=== PATIENT | male | born 1965 | race Caucasian/White ===

== ENCOUNTER 2020-05-28 18:54 | Emergency (ER) | payer OTHER, SELFPAY ==
--- NOTE | 2020-05-28 19:33 | PC.NURSE ---
pt's sps dropped pt off for detox , pt never offered any complaints, sps left immediately, pt then was ambulating in waiting room w/ even steady gait on cellphone, then not present when called for triage.
== END 2020-05-28 19:35 | disposition left against medical advice (07) ==
PROVIDERS: Emergency Provider Emergency Medicine
DX: F10.920 Alcohol use, unspecified with intoxication, uncomplicated (principal)
CPT/HCPCS: 99281

== ENCOUNTER 2020-06-01 20:15 | Emergency (ER) | payer OTHER, SELFPAY ==
[2020-06-01 20:41] VITALS: BP 145/93; PULSE 103; RESP 17; TEMP 36.9; O2SAT 94; BMI 20.7
--- NOTE | 2020-06-01 21:38 | ED.ALCOHOL ---
HPI - Alcohol General Chief Complaint: ETOH/Substance Use Stated Complaint: ETOH Time Seen by Provider: 06/01/20 21:38 Source: EMS Mode of arrival: EMS Limitations: altered mental status History of Present Illness HPI narrative: 55-year-old male presents as a [place] via EMS. He was found outside of a liquor store sleeping on the ground, EMS was unable to obtain any information from him because of acute alcohol intoxication. Review of systems and history limited because of acute alcohol intoxication. MD complaint: alcohol intoxication and alcohol dependence Last drink: Just prior to admission Amount of alcohol consumed: Large Chronic alcohol use: Yes Previous visits for alcohol intoxication: Yes Related Data Allergies Allergy/AdvReac Type Severity Reaction Status Date / Time No Known Allergies Allergy Unverified 04/28/20 19:36 [No Known Allergies*] Review of Systems Review of Systems: Yes Unobtainable due to mental status PMFSH Social History Social History Alcohol intake: current Smoking Status: Current every day smoker Use of substances other than those prescribed or required for medical reasons: No Advance Directives: No Advance Directives Information Provided: No Physical Exam Vital Signs: Vital Signs: Vital Signs Temp Pulse Resp BP Pulse Ox 06/01/20 23:25 98 F 100 19 142/93 H 95 06/01/20 20:41 98.4 F 103 H 17 145/93 H 94 Body Mass Index 20.7 Appearance: Alert. acute alcohol intoxication Eyes: Pupils equal, round and reactive to light. ENT: Pharynx normal. Neck: Normal inspection. Neck supple. CVS: tachycardic Pulses normal. Respiratory: No respiratory distress. Breath sounds normal. Abdomen: Soft and nontender. Skin: Skin warm and dry. Normal skin color. Normal skin turgor. Extremities: No lower extremity edema. Neuro: No motor deficit. No sensory deficit. Course Course Course Narrative: plan is to rule out intracranial hemorrhage, will order CBC, Chem 7 and ETOH. CBC Chem 7 within normal limits, ETOH 361, CT scan of the head is negative for acute findings. Patient's family requesting to pick him up. Patient is not interested in detox and does not think he has an alcohol problem at this time. MDM - Alcohol Differential Diagnosis Differential diagnosis: Likely alcohol dependence, alcohol withdrawal delirium, alcohol intoxication, alcohol withdrawal syndrome and alcohol withdrawal seizure Medical Records Attestation: I reviewed the patient's medical records. Lab Data Attestation: I reviewed the patient's lab results. Result diagrams: 06/01/20 23:25 06/01/20 23:25 Labs: Lab Results 06/01/20 06/01/20 06/01/20 Range/Units 23:25 23:25 23:25 WBC 8.8 (4.8-10.8) X10*3/uL RBC 4.87 (4.60-5.80) X10*6/uL Hgb 15.1 (14.0-18.0) g/dl Hct 44.9 (42-52) % MCV 92.2 (80-98) fL MCH 31.0 (27.0-33.0) pg MCHC 33.6 (31.0-36.0) g/dl RDW 13.9 (11.0-16.0) % Plt Count 277 (160-400) X10*3/uL MPV 9.0 L (9.4-12.4) fL Immature Gran % (Auto) 0.2 (0.0-0.4) % Neut % (Auto) 51.0 (45-73) % Lymph % (Auto) 42.9 H (20-40) % [place] % (Auto) 4.8 (2-11) % Eos % (Auto) 0.3 (0-4) % Baso % (Auto) 0.8 (0-2) % Lymph # (Auto) 3.8 (1.2-4.9) X10*3/uL [place] # (Auto) 0.4 (0.1-1.2) X10*3/uL Eos # (Auto) 0.0 (0.0-0.4) X10*3/uL Baso # (Auto) 0.1 (0.0-0.2) X10*3/uL Abs Immat Gran (auto) 0.02 (0.00-0.03) X10*3/uL Absolute Neuts (auto) 4.5 (2.0-8.3) X10*3/uL Absolute Nucleated RBC 0.000 (0.0-0.012) X10*3/uL Nucleated RBC % (auto) 0.0 (0.0-0.2) /100WBC Sodium 145 (135-145) mmol/L Potassium 4.0 (3.3-5.1) mmol/l Chloride 108 (96-108) mmol/L Carbon Dioxide 23 (22-29) mmol/L Anion Gap 18 (12-20) BUN 19 H (9-16) mg/dL Creatinine 0.81 (0.5-1.4) mg/dL Estim Creat Clear Calc 90.3 Estimated GFR > 60 Random Glucose 97 (60-115) mg/dL Calcium 8.3 L (8.4-10.2) mg/dL Total Bilirubin 0.4 (0.0-1.0) mg/dL AST 45 H (5-37) U/L ALT 41 H (0-40) U/L Alkaline Phosphatase 114 (39-117) U/L Total Protein 7.0 (6.5-8.0) g/dL Albumin 4.1 (3.5-5.0) g/dL Ethyl Alcohol 361 H* mg/dL Imaging Data CT scan - head: Attestation: I personally reviewed and interpreted this imaging study as follows: Radiologist's impression: FINDINGS: There is no evidence of acute intracranial hemorrhage or territorial infarction. No abnormal mass effect or midline shift is seen. [place] to white matter differentiation is well preserved. No extra-axial fluid collections are identified. The ventricles are normal in size. There is unchanged low-density in the anterior limb of the left internal capsule, likely chronic microvascular ischemic changes, present previously and unchanged. The osseous structures and soft tissues are normal. The mastoid air cells and visualized portions of the paranasal sinuses are well aerated. IMPRESSION: No acute intracranial pathology. Discharge Plan Discharge Clinical Impression: Alcoholic intoxication Qualifiers: Complication of substance-induced condition: uncomplicated Qualified Code(s): F10.920 - Alcohol use, unspecified with intoxication, uncomplicated Patient Disposition: Home, Self-Care Instructions: Abuse of Alcohol (ED) Additional Instructions: please consider detox CT scan of your head was negative for acute findings. Your blood alcohol level was 361. Thank you for choosing this emergency department for evaluation. Please follow-up with primary care physician as needed. Return to the emergency department for any new, concerning, or worsening symptoms. Interventions: ED Discharge Assessment Last Done: 06/02/20 01:03 Discharge Date/Time: 06/02/20 01:04
--- NOTE | 2020-06-01 21:42 | CT_ITS ---
EXAMINATION: CT HEAD WITHOUT CONTRAST CLINICAL INFORMATION: EtOH COMPARISON: 04/22/2020 TECHNIQUE: Contiguous axial imaging was performed from the skull base to vertex without intravenous administration of contrast. This CT examination was performed using dose optimization techniques as appropriate, variously including the following: *Automated exposure control *Adjustment of mA and/or kV according to patient size (this includes techniques or standardized protocols for targeted exams where dose is matched to indication/reason for exam; i.e. extremities or head) *Use of iterative reconstruction technique DLP: 687 mGy-cm FINDINGS: There is no evidence of acute intracranial hemorrhage or territorial infarction. No abnormal mass effect or midline shift is seen. [place] to white matter differentiation is well preserved. No extra-axial fluid collections are identified. The ventricles are normal in size. There is unchanged low-density in the anterior limb of the left internal capsule, likely chronic microvascular ischemic changes, present previously and unchanged. The osseous structures and soft tissues are normal. The mastoid air cells and visualized portions of the paranasal sinuses are well aerated. IMPRESSION: No acute intracranial pathology.
[2020-06-01 23:25] VITALS: BP 142/93; PULSE 100; RESP 19; TEMP 36.6; O2SAT 95
[2020-06-01 23:36] LABS: Basophils Absolute Auto 0.1 X10*3/uL (0.0-0.2); Basophils Percent Auto 0.8 % (0-2); Eosinophils Percent Auto 0.3 % (0-4); Hematocrit 44.9 % (42-52); Hemoglobin 15.1 g/dl (14.0-18.0); Imm Gran Abs Auto 0.02 X10*3/uL (0.00-0.03); Imm Gran Pct Auto 0.2 % (0.0-0.4); Lymphocytes Absolute Auto 3.8 X10*3/uL (1.2-4.9); Lymphocytes Percent Auto 42.9 % (20-40); MANUAL DIFF FLAG NO; Mean Corpuscular HGB Conc 33.6 g/dl (31.0-36.0); Mean Corpuscular Volume 92.2 fL (80-98); Monocytes Absolute Auto 0.4 X10*3/uL (0.1-1.2); Monocytes Percent Auto 4.8 % (2-11); Neutrophils Absolute Auto 4.5 X10*3/uL (2.0-8.3); Platelet Count 277 X10*3/uL (160-400); Red Blood Count 4.87 X10*6/uL (4.60-5.80); Red Cell Distribution Width 13.9 % (11.0-16.0); White Blood Count 8.8 X10*3/uL (4.8-10.8)
[2020-06-02 00:01] LABS: Ethanol 361 mg/dL
[2020-06-02 00:04] LABS: Alanine Aminotransferase 41 U/L (0-40); Albumin Level 4.1 g/dL (3.5-5.0); Alkaline Phosphatase 114 U/L (39-117); Anion Gap 18 (12-20); Aspartate Amino Transferase 45 U/L (5-37); Bilirubin Total 0.4 mg/dL (0.0-1.0); Blood Urea Nitrogen 19 mg/dL (9-16); Calcium 8.3 mg/dL (8.4-10.2); Carbon Dioxide 23 mmol/L (22-29); Chloride 108 mmol/L (96-108); Creatinine Clr Calc Pharmacy 90.3; Estimated Glomerular Filt Rate > 60; Glucose Random 97 mg/dL (60-115); Sodium 145 mmol/L (135-145)
== END 2020-06-02 01:04 | disposition home or self-care (01) ==
PROVIDERS: Nurse Practitioner Family; Emergency Provider Emergency Medicine
DX: F10.220 Alcohol dependence with intoxication, uncomplicated (principal); Y90.8 Blood alcohol level of 240 mg/100 ml or more; F17.200 Nicotine dependence, unspecified, uncomplicated
CPT/HCPCS: 36415; 70450; 80053; 80320; 85025; 99284

== ENCOUNTER 2020-06-04 17:01 | Emergency (ER) | payer OTHER, SELFPAY ==
--- NOTE | 2020-06-04 17:22 | ED.ALCOHOL ---
HPI - Alcohol General Chief Complaint: ETOH/Substance Use Stated Complaint: ETOH Time Seen by Provider: 06/04/20 17:21 Source: patient and old records reviewed Mode of arrival: other (walked to ED) Limitations: other (intoxication) History of Present Illness complaint: alcohol intoxication Last drink: Just prior to admission Amount of alcohol consumed: cannot tell me Chronic alcohol use: Yes Previous visits for alcohol intoxication: Yes Recent trauma: No Associated symptoms: denies other symptoms Treatments prior to arrival: none Related Data Allergies Allergy/AdvReac Type Severity Reaction Status Date / Time No Known Allergies Allergy Unverified 04/28/20 19:36 [No Known Allergies*] Review of Systems Review of Systems: ROS unable to be obtained due to level of intoxication [facility] Past Medical History Medical History (Updated 06/04/20 @ 19:24 by Mili Degroot DO) Alcoholism Social History Social History Alcohol intake: current Alcohol type: hard liquor Smoking Status: Unknown if ever smoked Use of substances other than those prescribed or required for medical reasons: No Advance Directives: No Advance Directives Information Provided: Yes Physical Exam Vital Signs: Vital Signs: Vital Signs Temp Pulse Resp BP Pulse Ox 06/04/20 19:39 98.2 F 97 18 148/98 H 95 06/04/20 17:45 97.9 F 97 17 153/94 H 93 Appearance: Alert. Oriented to person and place, + ETOH odor. No acute distress. Eyes: Pupils equal, round and reactive to light. ENT: Pharynx normal. No trauma noted Neck: Normal inspection. Neck supple. CVS: Normal heart rate and rhythm. Pulses normal. Respiratory: No respiratory distress. Breath sounds normal. Abdomen: Soft and nontender. Skin: Skin warm and dry. Normal skin color. Normal skin turgor. Extremities: No lower extremity edema. No calf ttp Neuro: Oriented X 2. No motor deficit. No sensory deficit. Unsteady gait Course Course Course Narrative: patient up and walking, doesn't want detox now, his is enroute per him to pick him up, he has no SI MDM - Alcohol MDM Narrative Medical decision making narrative: 55 yo male with ETOH abuse here intoxicated, no trauma, will need basic labs, wants detox - last seen here in April for ETOH withdrawal admission Lab Data Result diagrams: 06/04/20 18:10 06/04/20 18:10 Labs: Lab Results 06/04/20 06/04/20 06/04/20 Range/Units 18:10 18:10 18:10 WBC 6.3 (4.8-10.8) X10*3/uL RBC 5.12 (4.60-5.80) X10*6/uL Hgb 15.7 (14.0-18.0) g/dl Hct 46.3 (42-52) % MCV 90.4 (80-98) fL MCH 30.7 (27.0-33.0) pg MCHC 33.9 (31.0-36.0) g/dl RDW 13.8 (11.0-16.0) % Plt Count 250 (160-400) X10*3/uL MPV 8.5 L (9.4-12.4) fL Immature Gran % (Auto) 0.2 (0.0-0.4) % Neut % (Auto) 45.9 (45-73) % Lymph % (Auto) 47.4 H (20-40) % [place] % (Auto) 4.4 (2-11) % Eos % (Auto) 1.0 (0-4) % Baso % (Auto) 1.1 (0-2) % Lymph # (Auto) 3.0 (1.2-4.9) X10*3/uL [place] # (Auto) 0.3 (0.1-1.2) X10*3/uL Eos # (Auto) 0.1 (0.0-0.4) X10*3/uL Baso # (Auto) 0.1 (0.0-0.2) X10*3/uL Abs Immat Gran (auto) 0.01 (0.00-0.03) X10*3/uL Absolute Neuts (auto) 2.9 (2.0-8.3) X10*3/uL Absolute Nucleated RBC 0.000 (0.0-0.012) X10*3/uL Nucleated RBC % (auto) 0.0 (0.0-0.2) /100WBC Sodium 140 (135-145) mmol/L Potassium 3.9 (3.3-5.1) mmol/l Chloride 103 (96-108) mmol/L Carbon Dioxide 21 L (22-29) mmol/L Anion Gap 20 (12-20) BUN 18 H (9-16) mg/dL Creatinine 0.76 (0.5-1.4) mg/dL Estim Creat Clear Calc TNP Estimated GFR > 60 Random Glucose 106 (60-115) mg/dL Calcium 7.9 L (8.4-10.2) mg/dL Magnesium 2.1 (1.6-2.6) mg/dL Total Bilirubin 0.5 (0.0-1.0) mg/dL Direct Bilirubin 0.3 (0.0-0.5) mg/dL AST 131 H (5-37) U/L ALT 118 H (0-40) U/L Alkaline Phosphatase 110 (39-117) U/L Total Protein 7.1 (6.5-8.0) g/dL Albumin 4.1 (3.5-5.0) g/dL Ethyl Alcohol 402 H* mg/dL Discharge Plan Discharge Clinical Impression: Alcoholic intoxication Patient Disposition: Home, Self-Care Instructions: Abuse of Alcohol (ED) Additional Instructions: stay with responsible adult, please consider detox
[2020-06-04 17:45] VITALS: BP 153/94; PULSE 97; RESP 17; TEMP 36.6; O2SAT 93
[2020-06-04 18:19] LABS: MANUAL DIFF FLAG NO
[2020-06-04 18:20] LABS: Basophils Absolute Auto 0.1 X10*3/uL (0.0-0.2); Basophils Percent Auto 1.1 % (0-2); Eosinophils Absolute Auto 0.1 X10*3/uL (0.0-0.4); Hematocrit 46.3 % (42-52); Hemoglobin 15.7 g/dl (14.0-18.0); Imm Gran Abs Auto 0.01 X10*3/uL (0.00-0.03); Imm Gran Pct Auto 0.2 % (0.0-0.4); Lymphocytes Percent Auto 47.4 % (20-40); Mean Corpuscular HGB Conc 33.9 g/dl (31.0-36.0); Mean Corpuscular Hemoglobin 30.7 pg (27.0-33.0); Mean Corpuscular Volume 90.4 fL (80-98); Mean Platelet Volume 8.5 fL (9.4-12.4); Monocytes Absolute Auto 0.3 X10*3/uL (0.1-1.2); Monocytes Percent Auto 4.4 % (2-11); Neutrophils Absolute Auto 2.9 X10*3/uL (2.0-8.3); Neutrophils Percent Auto 45.9 % (45-73); Platelet Count 250 X10*3/uL (160-400); Red Blood Count 5.12 X10*6/uL (4.60-5.80); Red Cell Distribution Width 13.8 % (11.0-16.0); White Blood Count 6.3 X10*3/uL (4.8-10.8)
[2020-06-04 18:52] LABS: Ethanol 402 mg/dL
[2020-06-04 19:15] LABS: Alanine Aminotransferase 118 U/L (0-40); Albumin Level 4.1 g/dL (3.5-5.0); Alkaline Phosphatase 110 U/L (39-117); Anion Gap 20 (12-20); Aspartate Amino Transferase 131 U/L (5-37); Bilirubin Direct 0.3 mg/dL (0.0-0.5); Bilirubin Total 0.5 mg/dL (0.0-1.0); Blood Urea Nitrogen 18 mg/dL (9-16); Calcium 7.9 mg/dL (8.4-10.2); Carbon Dioxide 21 mmol/L (22-29); Chloride 103 mmol/L (96-108); Estimated Glomerular Filt Rate > 60; Glucose Random 106 mg/dL (60-115); Magnesium 2.1 mg/dL (1.6-2.6); Potassium 3.9 mmol/l (3.3-5.1); Sodium 140 mmol/L (135-145); Total Protein 7.1 g/dL (6.5-8.0)
[2020-06-04 19:39] VITALS: BP 148/98; PULSE 97; RESP 18; TEMP 36.8; O2SAT 95
--- NOTE | 2020-06-04 21:21 | PC.NURSE ---
patient went home with . provider made aware
== END 2020-06-04 20:45 | disposition home or self-care (01) ==
PROVIDERS: Emergency Provider Emergency Medicine
DX: F10.129 Alcohol abuse with intoxication, unspecified (principal); Y90.8 Blood alcohol level of 240 mg/100 ml or more; Z71.41 Alcohol abuse counseling and surveillance of alcoholic
CPT/HCPCS: 36415; 80048; 80076; 80320; 83735; 85025; 99284

== ENCOUNTER 2020-06-05 17:54 | Emergency (ER) | payer OTHER, SELFPAY ==
[2020-06-05 17:56] VITALS: BP 156/104; PULSE 110; RESP 17; TEMP 37.4; O2SAT 95; BMI 20.9
[2020-06-05 19:18] VITALS: BP 153/101; PULSE 91; O2SAT 92
--- NOTE | 2020-06-05 19:22 | PC.NURSE ---
Pt wheeled in by kourtney from the waiting room. Pt appears to be a poor historian, initially saying 2 weeks since last drink, then saying last drink today and that it was vodka, pt unable to elaborate. No visible tremor noted to hands, sat 92-94% on room. No diaphoresis noted, CIWA done. Awaiting primary eval.
--- NOTE | 2020-06-05 20:18 | ED_ITS ---
HPI - Alcohol General Chief Complaint: ETOH/Substance Use <AGUSTO Justice - Last Filed: 06/06/20 00:58> Stated Complaint: detox <AGUSTO Justice - Last Filed: 06/06/20 00:58> Time Seen by Provider: 06/05/20 20:05 <AGUSTO Justice - Last Filed: 06/06/20 00:58> Source: patient <AGUSTO Justice - Last Filed: 06/06/20 00:58> Limitations: language barrier ( [place]-speaking, limited Amharic) and altered mental s tatus (etoh intoxication) <AGUSTO Justice - Last Filed: 06/06/20 00:58> History of Present Illness HPI narrative: patient is a 55-year-old male who was just evaluated at this emergency d epartment yesterday, where he was claiming wanting detox, but left after he changed his mind and decided he did not want Detox. patient is claiming he drank a lot of vodka and he would now like detox. Denies any pain. Denies SI/HI. <AGUSTO Justice - Last Filed: 06/06/20 00:58> MD complaint: alcohol intoxication <AGUSTO Justice - Last Filed: 06/06/20 00:58> Related Data Allergies/Adverse Reactions: Allergies Allergy/AdvReac Type Severity Reaction Status Date / Time No Known Allergies Allergy Verified 06/05/20 18:02 [No Known Allergies*] <AGUSTO Justice - Last Filed: 06/06/20 00:58> Review of Systems Review of Systems: Yes all other systems are reviewed and are negative <AGUSTO Justice - Last Filed: 06/06/20 00:58> ON LICENSE OF [facility] Past Medical History Source: old records reviewed <AGUSTO Justice - Last Filed: 06/06/20 00:58> Medical History: Medical History Alcoholism <AGUSTO Justice Last Filed: 06/06/20 00:58> Social History Social History: Social History Alcohol intake: current Alcohol type: hard liquor Smoking Status: Unknown if ever smoked Advance Directives: No Advance Directives Information Provided: No <AGUSTO Justice - Last Filed: 06/06/20 00:58> Physical Exam Vital Signs: Vital Signs: Vital Signs Temp Pulse Resp BP Pulse Ox 06/06/20 07:12 91 16 145/79 H 97 06/06/20 06:43 86 16 94 06/06/20 03:10 92 16 94 06/06/20 00:17 86 16 135/86 92 06/05/20 19:18 91 153/101 H 92 06/05/20 17:56 99.4 F 110 H 17 156/104 H 95 Body Mass Index 20.9 <AGUSTO Justice - Last Filed: 06/06/20 00:58> Vital Signs: Vital Signs Temp Pulse Resp BP Pulse Ox 06/06/20 07:12 91 16 145/79 H 97 06/06/20 06:43 86 16 94 06/06/20 03:10 92 16 94 06/06/20 00:17 86 16 135/86 92 06/05/20 19:18 91 153/101 H 92 06/05/20 17:56 99.4 F 110 H 17 156/104 H 95 Body Mass Index 20.9 <Mili Degroot DO - Last Filed: 06/06/20 07:19> Const: General: cooperative, comfortable and intoxicated appearing (+ etoh odor) <AGUSTO Justice - Last Filed: 06/06/20 00:58> Nutritional Appearance: thin <AGUSTO Justice - Last Filed: 06/06/20 00:58> Orientation/consciousness: oriented to person and oriented to place <AGUSTO Justice - Last Filed: 06/06/20 00:58> HENMT: Head: Yes normal to inspection and Yes atraumatic <AGUSTO Justice Last Filed: 06/06/20 00:58> General nose exam: Normal external nose present <AGUSTO Justice Last Filed: 06/06/20 00:58> Face and sinus: Yes normal facial exam <AGUSTO Justice Last Filed: 06/06/20 00:58> Eyes: General: appearance normal, both eyes and all related structures <AGUSTO Justice Last Filed: 06/06/20 00:58> Pupils: Equal, round and reactive pupils present <Suly Huynh [facility] Last Filed: 06/06/20 00:58> EOM: EOMs intact bilaterally <Suly Huynh [facility] Last Filed: 06/06/20 00:58> Neck: Neck: Yes normal visual inspection, Yes full ROM and Yes supple <Suly Huynh [place] Last Filed: 06/06/20 00:58> Resp: Effort & Inspection: normal respiratory effort and able to speak in complete sentences <Suly Huynh [facility] Last Filed: 06/06/20 00:58> Auscultation: no crackles, no rales, no rhonchi and no wheezes <Suly Huynh [facility] Last Filed: 06/06/20 00:58> Cardio: Rate: regular rate <Suly Huynh [place] Last Filed: 06/06/20 00:58> Rhythm: regular rhythm <Suly Huynh [facility] Last Filed: 06/06/20 00:58> Heart sounds: S1 normal heart sound present and S2 normal heart sound present <Suly Huynh [facility] Last Filed: 06/06/20 00:58> GI: Inspection: Yes normal to inspection <Suly Huynh [facility] Last Filed: 06/06/20 00:58> Palpation (GI): Soft to palpation and nontender <Suly Huynh [place] Last Filed: 06/06/20 00:58> Skin: General skin exam: no rashes or lesions noted <AGUSTO Justice Last Filed: 06/06/20 00:58> Neuro: General: oriented to person and oriented to place <AGUSTO Justice Last Filed: 06/06/20 00:58> Cranial nerves: Yes Equal, round and reactive pupils present <AGUSTO Justice - Last Filed: 06/06/20 00:58> Extrem: General: Yes normal to inspection <AGUSTO Justice - Last Filed: 06/06/20 00:58> Course Course Course Narrative: 55-year-old man with past medical history of etoh abuse is here intoxicated and seeking detox. patient was just at this emergency room yesterday with the same situation but left claiming he no longer wanted detox. No trauma noted. will get basic labs. ETOH 373, pt to wait until sober for detox. 10pm pt stating he has chest pain, EKG is NSR 82bpm 10:25pm using [place] sales program coordinator, patient is requesting fluids, states he is cramping and he knows this will help him. States he understands he needs to stay in his bed and cannot walk around while he is tethered to the fluids. Reiterated no SI or HI well we had the [place] sales program coordinator on the line, patient denies both. will give 1 L NS 1am sign out to Dr Jurado <AGUSTO Justice - Last Filed: 06/06/20 00:58> MDM - Alcohol Differential Diagnosis Differential diagnosis: Likely alcohol dependence and alcohol intoxication <AGUSTO Justice - Last Filed: 06/06/20 00:58> Lab Data Attestation: I reviewed the patient's lab results. <AGUSTO Justice - Last Filed: 06/06/20 00:58> Result diagrams: : 06/05/20 20:49 06/05/20 02:45 <AGUSTO Justice - Last Filed: 06/06/20 00:58> Labs: Lab Results 06/05/20 06/05/20 06/05/20 Range/Units 02:45 20:49 20:49 WBC 6.5 (4.8-10.8) X10*3/uL RBC 5.18 (4.60-5.80) X10*6/uL Hgb 15.9 (14.0-18.0) g/dl Hct 47.0 (42-52) % MCV 90.7 (80-98) fL MCH 30.7 (27.0-33.0) pg MCHC 33.8 (31.0-36.0) g/dl RDW 13.7 (11.0-16.0) % Plt Count 220 (160-400) X10*3/uL MPV 8.9 L (9.4-12.4) fL Immature Gran % (Auto) 0.2 (0.0-0.4) % Neut % (Auto) 45.8 (45-73) % Lymph % (Auto) 45.8 H (20-40) % [place] % (Auto) 5.9 (2-11) % Eos % (Auto) 1.2 (0-4) % Baso % (Auto) 1.1 (0-2) % Lymph # (Auto) 3.0 (1.2-4.9) X10*3/uL [place] # (Auto) 0.4 (0.1-1.2) X10*3/uL Eos # (Auto) 0.1 (0.0-0.4) X10*3/uL Baso # (Auto) 0.1 (0.0-0.2) X10*3/uL Abs Immat Gran (auto) 0.01 (0.00-0.03) X10*3/uL Absolute Neuts (auto) 3.0 (2.0-8.3) X10*3/uL Absolute Nucleated RBC 0.000 (0.0-0.012) X10*3/uL Nucleated RBC % (auto) 0.0 (0.0-0.2) /100WBC Sodium 142 (135-145) mmol/L Potassium 3.8 (3.3-5.1) mmol/l Chloride 106 (96-108) mmol/L Carbon Dioxide 23 (22-29) mmol/L Anion Gap 17 (12-20) BUN 18 H (9-16) mg/dL Creatinine 0.75 (0.5-1.4) mg/dL Estim Creat Clear Calc 108.0 Estimated GFR > 60 Random Glucose 124 H (60-115) mg/dL Calcium 8.1 L (8.4-10.2) mg/dL Total Bilirubin 0.6 (0.0-1.0) mg/dL AST 166 H (5-37) U/L ALT 163 H (0-40) U/L Alkaline Phosphatase 111 (39-117) U/L Total Protein 7.3 (6.5-8.0) g/dL Albumin 4.2 (3.5-5.0) g/dL Lipase 64 (8-78) U/L Urine Opiates Screen (Not Detect) Ur Barbiturates Screen (Not Detect) Ur Phencyclidine Scrn (Not Detect) Ur Amphetamines Screen (Not Detect) U Benzodiazepines Scrn (Not Detect) Urine Cocaine Screen (Not Detect) U Marijuana (THC) Screen (Not Detect) Ethyl Alcohol 373 H* mg/dL 06/06/20 Range/Units 00:36 WBC (4.8-10.8) X10*3/uL RBC (4.60-5.80) X10*6/uL Hgb (14.0-18.0) g/dl Hct (42-52) % MCV (80-98) fL MCH (27.0-33.0) pg MCHC (31.0-36.0) g/dl RDW (11.0-16.0) % Plt Count (160-400) X10*3/uL MPV (9.4-12.4) fL Immature Gran % (Auto) (0.0-0.4) % Neut % (Auto) (45-73) % Lymph % (Auto) (20-40) % [place] % (Auto) (2-11) % Eos % (Auto) (0-4) % Baso % (Auto) (0-2) % Lymph # (Auto) (1.2-4.9) X10*3/uL [place] # (Auto) (0.1-1.2) X10*3/uL Eos # (Auto) (0.0-0.4) X10*3/uL Baso # (Auto) (0.0-0.2) X10*3/uL Abs Immat Gran (auto) (0.00-0.03) X10*3/uL Absolute Neuts (auto) (2.0-8.3) X10*3/uL Absolute Nucleated RBC (0.0-0.012) X10*3/uL Nucleated RBC % (auto) (0.0-0.2) /100WBC Sodium (135-145) mmol/L Potassium (3.3-5.1) mmol/l Chloride (96-108) mmol/L Carbon Dioxide (22-29) mmol/L Anion Gap (12-20) BUN (9-16) mg/dL Creatinine (0.5-1.4) mg/dL Estim Creat Clear Calc Estimated GFR Random Glucose (60-115) mg/dL Calcium (8.4-10.2) mg/dL Total Bilirubin (0.0-1.0) mg/dL AST (5-37) U/L ALT (0-40) U/L Alkaline Phosphatase (39-117) U/L Total Protein (6.5-8.0) g/dL Albumin (3.5-5.0) g/dL Lipase (8-78) U/L Urine Opiates Screen Not Detected (Not Detect) Ur Barbiturates Screen Not Detected (Not Detect) Ur Phencyclidine Scrn Not Detected (Not Detect) Ur Amphetamines Screen Not Detected (Not Detect) U Benzodiazepines Scrn Not Detected (Not Detect) Urine Cocaine Screen Not Detected (Not Detect) U Marijuana (THC) Screen Not Detected (Not Detect) Ethyl Alcohol mg/dL <AGUSTO Justice - Last Filed: 06/06/20 00:58> Lab Results 06/05/20 06/05/20 06/05/20 Range/Units 02:45 20:49 20:49 WBC 6.5 (4.8-10.8) X10*3/uL RBC 5.18 (4.60-5.80) X10*6/uL Hgb 15.9 (14.0-18.0) g/dl Hct 47.0 (42-52) % MCV 90.7 (80-98) fL MCH 30.7 (27.0-33.0) pg MCHC 33.8 (31.0-36.0) g/dl RDW 13.7 (11.0-16.0) % Plt Count 220 (160-400) X10*3/uL MPV 8.9 L (9.4-12.4) fL Immature Gran % (Auto) 0.2 (0.0-0.4) % Neut % (Auto) 45.8 (45-73) % Lymph % (Auto) 45.8 H (20-40) % [place] % (Auto) 5.9 (2-11) % Eos % (Auto) 1.2 (0-4) % Baso % (Auto) 1.1 (0-2) % Lymph # (Auto) 3.0 (1.2-4.9) X10*3/uL [place] # (Auto) 0.4 (0.1-1.2) X10*3/uL Eos # (Auto) 0.1 (0.0-0.4) X10*3/uL Baso # (Auto) 0.1 (0.0-0.2) X10*3/uL Abs Immat Gran (auto) 0.01 (0.00-0.03) X10*3/uL Absolute Neuts (auto) 3.0 (2.0-8.3) X10*3/uL Absolute Nucleated RBC 0.000 (0.0-0.012) X10*3/uL Nucleated RBC % (auto) 0.0 (0.0-0.2) /100WBC Sodium 142 (135-145) mmol/L Potassium 3.8 (3.3-5.1) mmol/l Chloride 106 (96-108) mmol/L Carbon Dioxide 23 (22-29) mmol/L Anion Gap 17 (12-20) BUN 18 H (9-16) mg/dL Creatinine 0.75 (0.5-1.4) mg/dL Estim Creat Clear Calc 108.0 Estimated GFR > 60 Random Glucose 124 H (60-115) mg/dL Calcium 8.1 L (8.4-10.2) mg/dL Total Bilirubin 0.6 (0.0-1.0) mg/dL AST 166 H (5-37) U/L ALT 163 H (0-40) U/L Alkaline Phosphatase 111 (39-117) U/L Total Protein 7.3 (6.5-8.0) g/dL Albumin 4.2 (3.5-5.0) g/dL Lipase 64 (8-78) U/L Urine Opiates Screen (Not Detect) Ur Barbiturates Screen (Not Detect) Ur Phencyclidine Scrn (Not Detect) Ur Amphetamines Screen (Not Detect) U Benzodiazepines Scrn (Not Detect) Urine Cocaine Screen (Not Detect) U Marijuana (THC) Screen (Not Detect) Ethyl Alcohol 373 H* mg/dL 06/06/20 Range/Units 00:36 WBC (4.8-10.8) X10*3/uL RBC (4.60-5.80) X10*6/uL Hgb (14.0-18.0) g/dl Hct (42-52) % MCV (80-98) fL MCH (27.0-33.0) pg MCHC (31.0-36.0) g/dl RDW (11.0-16.0) % Plt Count (160-400) X10*3/uL MPV (9.4-12.4) fL Immature Gran % (Auto) (0.0-0.4) % Neut % (Auto) (45-73) % Lymph % (Auto) (20-40) % [place] % (Auto) (2-11) % Eos % (Auto) (0-4) % Baso % (Auto) (0-2) % Lymph # (Auto) (1.2-4.9) X10*3/uL [place] # (Auto) (0.1-1.2) X10*3/uL Eos # (Auto) (0.0-0.4) X10*3/uL Baso # (Auto) (0.0-0.2) X10*3/uL Abs Immat Gran (auto) (0.00-0.03) X10*3/uL Absolute Neuts (auto) (2.0-8.3) X10*3/uL Absolute Nucleated RBC (0.0-0.012) X10*3/uL Nucleated RBC % (auto) (0.0-0.2) /100WBC Sodium (135-145) mmol/L Potassium (3.3-5.1) mmol/l Chloride (96-108) mmol/L Carbon Dioxide (22-29) mmol/L Anion Gap (12-20) BUN (9-16) mg/dL Creatinine (0.5-1.4) mg/dL Estim Creat Clear Calc Estimated GFR Random Glucose (60-115) mg/dL Calcium (8.4-10.2) mg/dL Total Bilirubin (0.0-1.0) mg/dL AST (5-37) U/L ALT (0-40) U/L Alkaline Phosphatase (39-117) U/L Total Protein (6.5-8.0) g/dL Albumin (3.5-5.0) g/dL Lipase (8-78) U/L Urine Opiates Screen Not Detected (Not Detect) Ur Barbiturates Screen Not Detected (Not Detect) Ur Phencyclidine Scrn Not Detected (Not Detect) Ur Amphetamines Screen Not Detected (Not Detect) U Benzodiazepines Scrn Not Detected (Not Detect) Urine Cocaine Screen Not Detected (Not Detect) U Marijuana (THC) Screen Not Detected (Not Detect) Ethyl Alcohol mg/dL <Mili Degroot DO - Last Filed: 06/06/20 07:19> ECG Data Attestation: I personally reviewed and interpreted this ECG as follows: <AGUSTO Justice - Last Filed: 06/06/20 00:58> ECG interpretation date: 06/05/20 <AGUSTO Justice - Last Filed: 06/06/20 00:58> ECG interpretation time: 22:10 <AGUSTO Justice - Last Filed: 06/06/20 00:58> Prior ECG tracings: not available for review <AGUSTO Justice - Last Filed: 06/06/20 00:58> Interpretation: NSR 82bpm, ID int 138ms, QRS 86ms, QTc 425ms, Dr Jurado signed off on EKG <AGUSTO Justice - Last Filed: 06/06/20 00:58> Discharge Plan Discharge Clinical Impression: Desire for detoxification Alcoholic intoxication Qualifiers: Complication of substance-induced condition: uncomplicated Qualified Code(s): F 10.920 - Alcohol use, unspecified with intoxication, uncomplicated <AGUSTO Justice - Last Filed: 06/06/20 00:58>
[2020-06-05 20:56] LABS: MANUAL DIFF FLAG NO
[2020-06-05 20:57] LABS: Basophils Absolute Auto 0.1 X10*3/uL (0.0-0.2); Basophils Percent Auto 1.1 % (0-2); Eosinophils Absolute Auto 0.1 X10*3/uL (0.0-0.4); Eosinophils Percent Auto 1.2 % (0-4); Hemoglobin 15.9 g/dl (14.0-18.0); Imm Gran Abs Auto 0.01 X10*3/uL (0.00-0.03); Imm Gran Pct Auto 0.2 % (0.0-0.4); Lymphocytes Percent Auto 45.8 % (20-40); Mean Corpuscular HGB Conc 33.8 g/dl (31.0-36.0); Mean Corpuscular Hemoglobin 30.7 pg (27.0-33.0); Mean Corpuscular Volume 90.7 fL (80-98); Mean Platelet Volume 8.9 fL (9.4-12.4); Monocytes Absolute Auto 0.4 X10*3/uL (0.1-1.2); Monocytes Percent Auto 5.9 % (2-11); Neutrophils Percent Auto 45.8 % (45-73); Platelet Count 220 X10*3/uL (160-400); Red Blood Count 5.18 X10*6/uL (4.60-5.80); Red Cell Distribution Width 13.7 % (11.0-16.0); White Blood Count 6.5 X10*3/uL (4.8-10.8)
[2020-06-05 21:32] LABS: Ethanol 373 mg/dL
[2020-06-05 21:39] LABS: Alanine Aminotransferase 163 U/L (0-40); Albumin Level 4.2 g/dL (3.5-5.0); Alkaline Phosphatase 111 U/L (39-117); Anion Gap 17 (12-20); Aspartate Amino Transferase 166 U/L (5-37); Bilirubin Total 0.6 mg/dL (0.0-1.0); Blood Urea Nitrogen 18 mg/dL (9-16); Calcium 8.1 mg/dL (8.4-10.2); Carbon Dioxide 23 mmol/L (22-29); Chloride 106 mmol/L (96-108); Estimated Glomerular Filt Rate > 60; Glucose Random 124 mg/dL (60-115); Lipase 64 U/L (8-78); Potassium 3.8 mmol/l (3.3-5.1); Sodium 142 mmol/L (135-145); Total Protein 7.3 g/dL (6.5-8.0)
--- NOTE | 2020-06-05 22:00 | ECG_ITS ---
Test Reason : CHEST PAIN Blood Pressure : / mmHG Vent. Rate : 082 BPM Atrial Rate : 082 BPM P-R Int : 138 ms QRS Dur : 086 ms QT Int : 364 ms P-R-T Axes : 047 -28 067 degrees QTc Int : 425 ms Normal sinus rhythm Left axis deviation Nonspecific ST abnormality Abnormal ECG No previous ECGs available Referred By: Suly Huynh Electronically Signed By:ENEIDA ROGER MD
[2020-06-05] MEDS: 0.9 % Sodium Chloride 1,000 ML 999 ML IVCONT (22:39)
[2020-06-05] MEDS: LORazepam 2 MG/ML VIAL 1 MG IVPUSH (23:53)
--- NOTE | 2020-06-05 23:55 | PC.NURSE ---
Pt medicated as charted with 1mg ativan IVP, for anxiety and vomiting.
[2020-06-06 00:17] VITALS: BP 135/86; PULSE 86; RESP 16; O2SAT 92
[2020-06-06 01:02] LABS: Amphetamine Screen Urine Not Detected (Not Detect); Barbiturates, Urine Not Detected (Not Detect); Benzodiazepines Screen Urine Not Detected (Not Detect); Cannabinoid Screen Urine Not Detected (Not Detect); Cocaine Screen Urine Not Detected (Not Detect); Opiate Screen Urine Not Detected (Not Detect); Phencyclidine Screen Urine Not Detected (Not Detect)
--- NOTE | 2020-06-06 01:08 | PC.NURSE ---
Pt vomiting resolved, pt sitting up in bed at this time scrolling through cellphone. NAD. No tremor noted, skin pwd, resp reg and even. Awaiting CARE team eval in the morning
--- NOTE | 2020-06-06 02:50 | MHC.CARE ---
CARE team consult ordered for 55 year old [facility] male who arrived to ED heavily intoxicated after being dropped off by his . This is pt's 4th presentation in the last week to the ED for same complaint, with the goal of detox placement. It is unclear whether this goal is shared by the pt and his , however the previous 3 times pt has come to the ED after his brought him to the ED he would discharge home with her each time. This law writer attempted to meet with pt at 245am, as pt's BAL was 373 at 2049. Pt was medicated earlier in the evening when he became restless and agitated. Pt was rousable when approached by this law writer, however pt was slurring, hiccuping, and complaining of headache and upset stomach. Pt was not able to engage in a meaningful conversation at that time. Information for detox and other substance use disorder resources was left at bedside.
[2020-06-06 03:10] VITALS: PULSE 92; RESP 16; O2SAT 94
[2020-06-06 06:43] VITALS: PULSE 86; RESP 16; O2SAT 94
--- NOTE | 2020-06-06 06:44 | PC.NURSE ---
Pt awaiting CARE team re-eval for possible detox placement. Pt appears in no apparent distress, VSS. Skin warm and dry, no visible tremors or diaphoresis.
[2020-06-06 07:12] VITALS: BP 145/79; PULSE 91; RESP 16; O2SAT 97
--- NOTE | 2020-06-06 07:13 | PC.NURSE ---
CARE TEAM AT THE BEDSIDE ASSESSING PT FOR DETOX PLACMENT
--- NOTE | 2020-06-06 07:31 | MHC.CARE ---
CARE Team met with Pt secondary to a consult placed for detox . CARE Team used a video residence director as Pt is Guyanese speaking only. CARE Team and Pt discussed detox for his ongoing alcohol use- Pt presented to [facility] ED 4 times in the past week intoxicated. Pt is reporting daily vodka adn agreeable to detox at this time. CARE Team to refer Pt to detox.
--- NOTE | 2020-06-06 07:51 | MHC.CARE ---
Pt referred to [facility]- referral pending.
--- NOTE | 2020-06-06 08:10 | PC.NURSE ---
PT MEDICATED FOR VOMITING SG FRANCOISE, PT RESTING QUIETLY
[2020-06-06] MEDS: LORazepam 2 MG/ML VIAL IM (08:21)
--- NOTE | 2020-06-06 09:26 | PC.NURSE ---
SLEEPING NO VOMITING CURRENTLY
--- NOTE | 2020-06-06 10:37 | PC.NURSE ---
PLAN IS FOR [facility] FOR 13OO
[2020-06-06 10:41] VITALS: BP 152/97; PULSE 70; RESP 14; TEMP 36.6; O2SAT 96
--- NOTE | 2020-06-06 10:54 | PC.NURSE ---
nurse to nurse given to [facility] for detox intake/admission [phone]
--- NOTE | 2020-06-06 11:49 | PC.NURSE ---
plan is for discharge to await ride for detox
--- NOTE | 2020-06-06 13:45 | MHC.CARE ---
Addiction Consult Service note: Patient completed intake with [facility] using [facility] interpretive services. Patient was rejected by a [employer] driving due patient getting sick in the car. Patient transported via Taxi.
== END 2020-06-06 12:05 | disposition home or self-care (01) ==
PROVIDERS: Physician Assistant; Emergency Provider Emergency Medicine
DX: F10.129 Alcohol abuse with intoxication, unspecified (principal); Y90.8 Blood alcohol level of 240 mg/100 ml or more; Z71.41 Alcohol abuse counseling and surveillance of alcoholic
CPT/HCPCS: 36415; 80053; 80307; 80320; 83690; 85025; 93005; 96361; 96365; 96367; 96372; 96374; 96375; 99285; J2060

== ENCOUNTER 2020-08-07 13:24 | Emergency (ER) | payer OTHER, SELFPAY ==
--- NOTE | 2020-08-07 | ECG_ITS ---
Test Reason : CP Blood Pressure : / mmHG Vent. Rate : 087 BPM Atrial Rate : 087 BPM P-R Int : 140 ms QRS Dur : 084 ms QT Int : 374 ms P-R-T Axes : 042 -32 023 degrees QTc Int : 450 ms Normal sinus rhythm Left axis deviation Abnormal ECG No previous ECGs available Referred By: Generic ED Physician Electronically Signed By:MAR CHACON
[2020-08-07 14:40] VITALS: BP 148/89; PULSE 96; RESP 16; TEMP 37; O2SAT 95; BMI 24.3
--- NOTE | 2020-08-07 17:17 | PC.NURSE ---
CALLED PATIENT NO RESPONSE.
== END 2020-08-07 18:21 | disposition left against medical advice (07) ==
PROVIDERS: Emergency Provider Emergency Medicine
DX: Z04.9 Encounter for examination and observation for unspecified reason (principal)
CPT/HCPCS: 93005; 99281; 99282; 99283

== ENCOUNTER 2020-08-11 00:21 | Emergency (ER) | payer OTHER, SELFPAY ==
[2020-08-11 01:03] VITALS: BP 174/106; PULSE 90; RESP 16; TEMP 36.6; O2SAT 95; BMI 25.1
--- NOTE | 2020-08-11 01:33 | ED_ITS ---
HPI - Alcohol General Chief Complaint: ETOH/Substance Use Stated Complaint: SEEKING DETOX Time Seen by Provider: 08/11/20 01:08 Source: patient Mode of arrival: ambulatory Limitations: no limitations History of Present Illness HPI narrative: 55-year-old male with known history of alcohol abuse brought in by via triage with complaint of alcohol intoxication and requesting detox. He offers no medical complaints. Denies any recent fall or injury. It is noted that patient has had total of 8 visits since April, for alcohol intoxication/detox. MD complaint: alcohol intoxication Last drink: Days (ago) Chronic alcohol use: Yes Previous visits for alcohol intoxication: Yes Recent trauma: No Associated symptoms: denies other symptoms Treatments prior to arrival: none Related Data Allergies Allergy/AdvReac Type Severity Reaction Status Date / Time No Known Allergies Allergy Verified 06/05/20 18:02 [No Known Allergies*] Review of Systems Review of Systems: Constitutional: No Weight loss, No Fever, No Chills, No Night Sweats, No Fatigue, No Malaise ENT/Mouth: No Hearing loss, No Ear Pain, No Nasal Congestion, No Sinus Pain, No Hoarseness, No sore throat, No Rhinorrhea, No Swallowing Difficulty Eyes: No Eye Pain, No Swelling, No Redness, No Foreign Body, No Discharge, No Vision Changes Cardiovascular: No Chest Pain, No SOB, No Dyspnea on Exertion, No Orthopnea, No Edema, No Palpitations Respiratory: No Cough, No Sputum, No Wheezing, No Smoke Exposure, No Dyspnea Gastrointestinal: No Nausea, No Vomiting, No Diarrhea, No Constipation, No abdominal Pain, No Hematochezia, No Melena Genitourinary: no irregular bleeding, No Dysuria, No Urinary Frequency, No Hem aturia, No Urinary Incontinence, No Urgency, No Flank Pain, No Urinary Flow Changes, No Hesitancy Musculoskeletal: No joint pain, No Myalgias, No Joint Swelling Skin: No Skin Lesions, No rash Neuro: No Weakness, No Numbness, No Paresthesias, No Loss of Consciousness, No Dizziness, No Headache Psych: No Anxiety/Panic, No Depression, No SI/HI/AH/VH Heme/Lymph: No Bruising, No Bleeding,No Lymphadenopathy Endocrine: No Polyuria, No Polydipsia, No Temperature Intolerance Yes all other systems are reviewed and are negative PMFSH Past Medical History Medical History Alcoholism Social History Social History Alcohol intake: current Alcohol intake frequency: 3 or more drinks per day Alcohol type: hard liquor Smoking Status: Never smoker Use of substances other than those prescribed or required for medical reasons: No Advance Directives: No Physical Exam Vital Signs: Vital Signs: Last Vital Signs Temp 98 F 08/11/20 01:03 Pulse 90 08/11/20 01:03 Resp 16 08/11/20 01:03 BP 174/106 H 08/11/20 01:03 Pulse Ox 95 08/11/20 01:03 Body Mass Index 25.1 Reviewed Const: Other: Strong odor of EtOH, appears to be intoxicated. Atraumatic. General: cooperative and intoxicated appearing Nutritional Appearance: average body habitus Orientation/consciousness: patient oriented x3 HENMT: Head: Yes normal to inspection Ears: hearing grossly normal bilaterally Eyes: General: appearance normal, both eyes and all related structures Visual Graham: normal visual graham by confrontation Neck: Neck: Yes normal visual inspection, No positive Brudzinski's sign, No positive Kernig's sign and No tender Thyroid: Thyroid normal Chest: Chest palpation & inspection: normal inspection of the chest Resp: Effort & Inspection: normal respiratory effort Auscultation: clear to auscultation bilaterally Cardio: Jugular venous distension: no JVD Rhythm: regular rhythm Heart sounds: S1 normal heart sound present and S2 normal heart sound present GI: Inspection: Yes normal to inspection Palpation (GI): Soft to palpation Percussion: Yes normal to percussion Auscultation: normal bowel sounds : General: Yes no CVA tenderness Back/Spine/Pelvis: Back: no CVA tenderness Skin: General skin exam: no rashes or lesions noted Neuro: General: patient oriented x3 Extrem: General: Yes normal to inspection Course Course Course Narrative: In review 55-year-old male with longstanding history of alcohol abuse presenting with alcohol intoxication question detox. Has had a prior visits in the recent past where dropped him off in the ED for detox services and states that there is a better chance from the ED. At this time case discussed with care team recommendation for ETOH level and care team in a.m. will help obtain detox. Patient offers no complaints. Resting comfortably. Discharge Plan Discharge Clinical Impression: Alcoholic intoxication
[2020-08-11 01:45] LABS: Ethanol 378 mg/dL
--- NOTE | 2020-08-11 02:59 | MHC.CARE ---
This com writer spoke with pt's re: request that pt be sent to detox. Pt's reported that pt was [facility] in early June, and had done well not drinking until recently when pt began drinking again with a friend. Pt's reported that the pt has been on a 10 day drinking binge and that he needs help. CARE team will meet with pt in the morning and assist with securing detox placement if pt is agreeable. Pt's informed that pt will need to be voluntary for detox placement, and if he isn't agreeable that we will contact her to pick him up or to make other arrangements for him.
[2020-08-11 06:43] VITALS: BP 135/86; PULSE 84; RESP 16; O2SAT 96
--- NOTE | 2020-08-11 07:24 | PC.NURSE ---
report taken from ele rn pt here for etoh intoxication. pt requesting to use bathroom, ambulatory w smooth steady gait. back to stretcher, asking for warm blanket. appears calm and cooperative. plan to see care team this am.
== END 2020-08-11 08:23 | disposition left against medical advice (07) ==
PROVIDERS: Nurse Practitioner Primary Care; Emergency Provider Student in an Organized Health Care Education/Training Program; PCP Internal Medicine
DX: F10.129 Alcohol abuse with intoxication, unspecified (principal); Y90.9 Presence of alcohol in blood, level not specified; Z71.41 Alcohol abuse counseling and surveillance of alcoholic
CPT/HCPCS: 80320; 99284

== ENCOUNTER 2020-12-11 18:43 | Emergency (ER) | payer OTHER, SELFPAY ==
--- NOTE | 2020-12-11 18:49 | ED.ALCOHOL ---
HPI - Alcohol General Chief Complaint: ETOH/Substance Use Stated Complaint: etoh Time Seen by Provider: 12/11/20 18:51 Source: patient and EMS Mode of arrival: EMS Limitations: altered mental status (ETOH intoxication) History of Present Illness HPI narrative: EMS brought patient call for intoxication, diff walking no trauma reported, has been seen here in the past for same MD complaint: alcohol intoxication Last drink: Unknown Chronic alcohol use: Yes Previous visits for alcohol intoxication: Yes Recent trauma: No Associated symptoms: denies other symptoms Treatments prior to arrival: none Related Data Allergies Allergy/AdvReac Type Severity Reaction Status Date / Time No Known Allergies Allergy Verified 06/05/20 18:02 [No Known Allergies*] Review of Systems Review of Systems: ROS unable to be obtained due to alcohol intoxication [facility] Past Medical History Attestation statement: The following information was validated with the patient. Medical History Alcoholism Social History Social History Alcohol intake: current Alcohol intake frequency: 3 or more drinks per day Alcohol type: hard liquor Smoking Status: Never smoker Advance Directives: No Advance Directives Information Provided: No Physical Exam Vital Signs: Vital Signs: Last Vital Signs Temp 98.7 F 12/11/20 18:57 Pulse 90 12/11/20 22:00 Resp 16 12/11/20 22:00 BP 129/81 12/11/20 22:00 Pulse Ox 95 12/11/20 22:00 Body Mass Index 23.5 Appearance: Alert. ETOH odor, argumentative, slurred speech Eyes: Pupils equal, round and reactive to light. ENT: Pharynx normal. Atraumatic Neck: Normal inspection. Neck supple. CVS: Normal heart rate and rhythm. Pulses normal. Respiratory: No respiratory distress. Breath sounds normal. Abdomen: Soft and non-tender. Skin: Skin warm and dry. Normal skin color. Normal skin turgor. Extremities: No lower extremity edema. No calf ttp Neuro: Alert No motor deficit. No sensory deficit. Course Course Course Narrative: eating, steady gait, cannot find ride to come get patient anticipate DC once he has ride home MDM - Alcohol MDM Narrative Medical decision making narrative: 55 yo male with known ETOH atraumatic exam, uncooperative with staff, clear lungs 91% will recheck SPO2, dispo per improvement and clinical sobriety. Lab Data Labs: Lab Results 12/11/20 12/11/20 12/11/20 Range/Units 19:29 19:36 19:36 POC Glucose 88 (60-115) mg/dL Fasting Glucose 93 (60-99) mg/dL Ethyl Alcohol 409 H* mg/dL Discharge Plan Discharge Clinical Impression: Alcoholic intoxication Patient Disposition: Home, Self-Care Instructions: Abuse of Alcohol (ED) Additional Instructions: return to ED for any worsening symptoms or concerns
[2020-12-11 18:57] VITALS: BP 128/78; BP 134/78; PULSE 80; PULSE 87; RESP 18; TEMP 37.1; O2SAT 91; O2SAT 97; BMI 23.5
[2020-12-11 19:59] LABS: Glucose Fasting 93 mg/dL (60-99)
[2020-12-11 20:02] LABS: Ethanol 409 mg/dL
[2020-12-11 20:15] LABS: Glucose, Whole Blood 88 mg/dL (60-115)
[2020-12-11 22:00] VITALS: BP 129/81; PULSE 90; RESP 16; O2SAT 95
--- NOTE | 2020-12-11 23:15 | PC.NURSE ---
Patient is eating and drinking, ambulatory to the bathroom with a fairly steady gait, no assist needed.
--- NOTE | 2020-12-11 23:24 | PC.NURSE ---
this RN called the emergency contact per the patient- per the spouse listed in the computer she is not his anymore and then hung up on this nurse.
--- NOTE | 2020-12-12 | PC.NURSE ---
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 Patient was okay with the plan.
[2020-12-12 02:00] VITALS: RESP 16
[2020-12-12 06:16] VITALS: BP 132/74; PULSE 77; RESP 16; O2SAT 94
== END 2020-12-12 08:30 | disposition left against medical advice (07) ==
PROVIDERS: Emergency Provider Emergency Medicine
DX: F10.220 Alcohol dependence with intoxication, uncomplicated (principal); Y90.8 Blood alcohol level of 240 mg/100 ml or more
CPT/HCPCS: 36415; 80320; 82947; 99284

== ENCOUNTER 2020-12-16 12:04 | Emergency (ER) | payer OTHER, SELFPAY ==
[2020-12-16 12:12] VITALS: BP 116/70; PULSE 96; O2SAT 96
--- NOTE | 2020-12-16 12:17 | ED_ITS ---
HPI - Alcohol General Chief Complaint: ETOH/Substance Use Stated Complaint: ETOH Time Seen by Provider: 12/16/20 12:16 Source: patient and EMS Mode of arrival: EMS Limitations: other (ETOH doesn't want to answer questions) History of Present Illness MD complaint: alcohol intoxication Last drink: Just prior to admission Chronic alcohol use: Yes Previous visits for alcohol intoxication: Yes Recent trauma: No Associated symptoms: denies other symptoms Treatments prior to arrival: none Related Data Allergies Allergy/AdvReac Type Severity Reaction Status Date / Time No Known Allergies Allergy Verified 06/05/20 18:02 [No Known Allergies*] Review of Systems Review of Systems: ROS unable to be obtained due to patient doesn't want to answer questions [facility] Past Medical History Attestation statement: The following information was validated with the patient. Medical History Alcoholism Social History Social History Alcohol intake: current Alcohol intake frequency: 3 or more drinks per day Alcohol type: hard liquor Smoking Status: Never smoker Advance Directives: No Advance Directives Information Provided: Yes Physical Exam Vital Signs: Vital Signs: Last Vital Signs Temp 97.9 F 12/16/20 12:20 Pulse 93 12/16/20 12:20 Resp 18 12/16/20 12:20 BP 142/90 H 12/16/20 12:20 Pulse Ox 95 12/16/20 12:20 Body Mass Index 22.1 Appearance: Alert. Oriented X3. No acute distress. ETOH odor Eyes: Pupils equal, round and reactive to light. ENT: Pharynx normal. Neck: Normal inspection. Neck supple. CVS: Normal heart rate and rhythm. Pulses normal. Respiratory: No respiratory distress. Breath sounds normal. Abdomen: Soft and nontender. Skin: Skin warm and dry. Normal skin color. Normal skin turgor. Extremities: No lower extremity edema. No calf ttp Neuro: Oriented X 3. No motor deficit. No sensory deficit. Psych: no SI/HI Course Course Course Narrative: steady gait, alert and oriented x 3 MDM - Alcohol MDM Narrative Medical decision making narrative: 55 yo male with longstanding ETOH here with intoxication no trauma, will observe and check blood sugar. no SI Lab Data Labs: Lab Results 12/16/20 Range/Units 12:26 POC Glucose 118 H (60-115) mg/dL Discharge Plan Discharge Clinical Impression: Alcoholic intoxication Qualifiers: Complication of substance-induced condition: uncomplicated Qualified Code(s): F10.920 - Alcohol use, unspecified with intoxication, uncomplicated Patient Disposition: Home, Self-Care Instructions: Alcohol Intoxication (ED) Additional Instructions: return to ED for any worsening symptoms or concerns stop drinking alcohol
[2020-12-16 12:20] VITALS: BP 142/90; PULSE 93; RESP 18; TEMP 36.6; O2SAT 95; BMI 22.1
[2020-12-16 12:29] LABS: Glucose, Whole Blood 118 mg/dL (60-115)
--- NOTE | 2020-12-16 12:49 | MHC.RECOVSUP ---
Recovery Support note: Patient is a 55 year old Gibraltarian speaking male who presented to [facility] due to intoxication. Patient is known to this newspaper writer from previous consultations. Patient was requesting to leave. This newspaper writer met with patient to offer recover resources and transportation home. Patient did not want to remain in the ED for a ride to become available. Patient walked steadily out of the ED with no issue.
== END 2020-12-16 12:53 | disposition home or self-care (01) ==
PROVIDERS: Emergency Provider Emergency Medicine
DX: F10.220 Alcohol dependence with intoxication, uncomplicated (principal); Y90.9 Presence of alcohol in blood, level not specified
CPT/HCPCS: 82947; 99282; 99283

== ENCOUNTER 2020-12-16 15:59 | Emergency (ER) | payer OTHER, SELFPAY ==
--- NOTE | 2020-12-16 16:06 | ED.ALCOHOL ---
HPI - Alcohol General Chief Complaint: ETOH/Substance Use Stated Complaint: etoh Time Seen by Provider: 12/16/20 16:02 Source: EMS Mode of arrival: EMS Limitations: other (Uncooperative) History of Present Illness HPI narrative: patient is brought to emergency room by EMS, patient was found drunk, lying on the floor, awake from a scene by bystanders, who called EMS. Patient was discharged from this ER earlier this afternoon for alcohol intoxication. Patient states that he was discharged, went to drink more alcohol, denies falling or hitting his head. Related Data Allergies Allergy/AdvReac Type Severity Reaction Status Date / Time No Known Allergies Allergy Verified 06/05/20 18:02 [No Known Allergies*] Review of Systems Review of Systems: Constitutional no fever chills ENT/Mouth : No Hearing loss, No Ear Pain, No Nasal Congestion, No Sinus Pain, No Hoarseness, No sore throat, No Rhinorrhea, No Swallowing Difficulty Eyes: No Eye Pain, No Swelling, No Redness, No Foreign Body, No Discharge, No Vision Changes Cardiovascular : No Chest Pain, No SOB, No Dyspnea on Exertion, No Orthopnea, No Edema, No Palpitations Respiratory : No Cough, No Sputum, No Wheezing, No Smoke Exposure, No Dyspnea Gastrointestinal : No Nausea, No Vomiting, No Diarrhea, No Constipation, No abdominal Pain, No Hematochezia, No Melena Genitourinary : no irregular bleeding, No Dysuria, No Urinary Frequency, No Hematuria, No Urinary Incontinence, No Urgency, No Flank Pain, No Urinary Flow Changes, No Hesitancy Musculoskeletal : No joint pain, No Myalgias, No Joint Swelling Skin : No Skin Lesions, No rash Neuro : Denies loss of consciousness, patient intoxicated Psych : No Anxiety/Panic, No Depression, No SI/HI/AH/VH, No Social Issues, Heme/Lymph: No Bruising, No Bleeding,No Lymphadenopathy Endocrine : No Polyuria, No Polydipsia, No Temperature Intolerance PMFSH Past Medical History Medical History Alcoholism Social History Social History Alcohol intake: current Alcohol intake frequency: 3 or more drinks per day Alcohol type: hard liquor Smoking Status: Never smoker Advance Directives: No Advance Directives Information Provided: Yes Physical Exam Vital Signs: Vital Signs: Last Vital Signs Temp 98.6 F 12/16/20 16:09 Pulse 90 12/16/20 16:09 Resp 16 12/16/20 16:09 BP 138/87 12/16/20 16:09 Pulse Ox 98 12/16/20 16:09 Body Mass Index 23.7 Appearance: Alert. No acute distress, intoxicated Eyes: Pupils equal, round and reactive to light. ENT: Pharynx normal. Neck: Normal inspection. Neck supple. No lymph nodes noted. No crepitus CVS: Normal heart rate and rhythm. Pulses normal. Normal S1 and S2 Respiratory: No respiratory distress. Breath sounds normal. No Wheezing. No rales Abdomen: Soft and nontender. No rigidity. No distention. good BS x4 Skin: Skin warm and dry. Normal skin color. Normal skin turgor. Extremities: No lower extremity edema. No lower extremity edema. No Lacerations. No Rash Neuro: Intoxicated, cranial nerves 2-12 grossly intact, No motor deficit. No sensory deficit. Moving all extermities. No slurred speech. Course Course Course Narrative: Patient is alert, however he is still intoxicated. Patient has steady gait. Security has attempted multiple times to redirect him an have the patient stay in bed. However, the patient keeps getting up, walking into other patient's rooms. Police department is coming to pick him up. Patient has no medical complaints. Discharge Plan Discharge Clinical Impression: Alcoholic intoxication Qualifiers: Complication of substance-induced condition: uncomplicated Qualified Code(s): F10.920 - Alcohol use, unspecified with intoxication, uncomplicated Patient Disposition: Xfer Other Transfer Details: Being discharge with police department Instructions: Alcohol Intoxication (ED) Additional Instructions: Please follow-up with your primary care physician tomorrow. If you have any worsening or new symptoms, please return to the emergency room or call 911
[2020-12-16 16:09] VITALS: BP 138/87; PULSE 90; RESP 16; TEMP 37; O2SAT 98; BMI 23.7
== END 2020-12-16 17:00 | disposition other institution (70) ==
PROVIDERS: Emergency Provider Emergency Medicine
DX: F10.220 Alcohol dependence with intoxication, uncomplicated (principal); Y90.9 Presence of alcohol in blood, level not specified
CPT/HCPCS: 99283; 99284

== ENCOUNTER 2024-04-07 18:12 | Emergency (ER) | payer MEDICAID, SELFPAY ==
[2024-04-07 18:18] VITALS: BP 122/71; PULSE 91; O2SAT 97
[2024-04-07 18:25] VITALS: BP 147/75; PULSE 98; RESP 17; TEMP 36.4; O2SAT 95
--- NOTE | 2024-04-07 18:36 | ECG_ITS ---
Test Reason : ETOH Blood Pressure : / mmHG Vent. Rate : 091 BPM Atrial Rate : 091 BPM P-R Int : 152 ms QRS Dur : 092 ms QT Int : 360 ms P-R-T Axes : 047 -25 050 degrees QTc Int : 442 ms Normal sinus rhythm Normal ECG When compared with ECG of 07-AUG-2020 15:16, No significant change was found Referred By: Patel Dougherty Electronically Signed By:DAT MALIK
[2024-04-07 18:43] VITALS: BP 147/75; PULSE 98; RESP 17; TEMP 36.4; O2SAT 95; BMI 22.8
--- NOTE | 2024-04-07 18:53 | ED.ALCOHOL ---
HPI - Alcohol General Chief Complaint: Psychiatric Symptoms Stated Complaint: ETOH Time Seen by Provider: 04/07/24 18:31 Source: patient Mode of arrival: ambulatory Limitations: no limitations History of Present Illness ED Provider: yusuf ROBLES narrative: Patient alcoholic been in [place] for last 15 years feeling increased depressed states that is his and daughter in [place] 2 months ago and been tearful and drinking more patient lives in car feels suicidal without any plan Related Data Allergies Allergy/AdvReac Type Severity Reaction Status Date / Time No Known Allergies Allergy Verified 04/07/24 18:45 [No Known Allergies*] Review of Systems Review of Systems: Yes all other systems are reviewed and are negative PMFSH Past Medical History Medical History Alcoholism Social History Social History Alcohol intake: current Alcohol intake frequency: 3 or more drinks per day Alcohol type: hard liquor Advance Directives: No Advance Directives Information Provided: Yes Physical Exam ED Vital Signs: Vital Signs - 24 hr 04/07/24 18:25 04/07/24 18:43 04/07/24 22:47 Temperature 97.5 F 97.5 F 97.8 F Pulse Rate 98 98 77 Respiratory Rate 17 17 17 Blood Pressure 147/75 H 147/75 H 125/65 Pulse Oximetry 95 95 96 Oxygen Delivery Method Room Air Room Air 04/07/24 23:49 Temperature 97.9 F Pulse Rate 79 Respiratory Rate 16 Blood Pressure 136/71 Pulse Oximetry 96 Oxygen Delivery Method Room Air BMI result Body Mass Index 22.8 Appearance: Alert. Oriented X3. No acute distress. etoh++ Eyes: PERRLA, No Nystagmus ENT: Pharynx normal. Oral Mucosa moist Neck: Normal inspection. Neck supple. CVS: Normal heart rate and rhythm. Pulses normal. Respiratory: No respiratory distress. Equal air entry bilateral, no wheezing/rales/rhonchi Abdomen: Soft and nontender. Bowel sounds are present, no mass palpable, no CVA tenderness Skin: Skin warm and dry. Normal skin color. Normal skin turgor. Extremities: No lower extremity edema. No calf tenderness Neuro: Oriented X 3. No motor deficit. No sensory deficit.No cerebellar signs , cranial nerves II-XII intact Medical Decision Making Medical Decision Making MDM Narrative: Patient with depression with increased alcohol use with intermittent suicidal feeling will get care team involved after patient gets sober Lab Data MDM Lab Attestation statement: I reviewed the patient's lab results. 04/07/24 20:18 04/07/24 20:18 Labs: Lab Results 04/07/24 04/07/24 Range/Units 20:14 20:18 WBC 7.1 (4.8-10.8) X10*3/uL RBC 3.97 L (4.60-5.80) X10*6/uL Hgb 12.9 L (14.0-18.0) g/dl Hct 37.0 L (42.0-52.0) % MCV 93.2 (80.0-98.0) fL MCH 32.5 (27.0-33.0) pg MCHC 34.9 (31.0-36.0) g/dl RDW 13.9 (11.0-16.0) % Plt Count 265 (160-400) X10*3/uL MPV 8.4 L (9.4-12.4) fL Immature Gran % (Auto) 0.3 (0.0-0.4) % Neut % (Auto) 26.8 L (45-73) % Lymph % (Auto) 58.8 H (20-40) % Edmonson % (Auto) 10.2 (2-11) % Eos % (Auto) 2.5 (0-4) % Baso % (Auto) 1.4 (0-2) % Lymph # (Auto) 4.2 (1.2-4.9) X10*3/uL Edmonson # (Auto) 0.7 (0.1-1.2) X10*3/uL Eos # (Auto) 0.2 (0.0-0.4) X10*3/uL Baso # (Auto) 0.1 (0.0-0.2) X10*3/uL Abs Immat Gran (auto) 0.02 (0.00-0.03) X10*3/uL Absolute Neuts (auto) 1.9 L (2.0-8.3) x10*3/uL Absolute Nucleated RBC 0.000 (0.0-0.012) X10*3/uL Nucleated RBC % (auto) 0.0 (0.0-0.2) /100WBC Sodium 148 H (135-145) mmol/L Potassium 3.4 (3.3-5.1) mmol/L Chloride 114 H (96-108) mmol/L Carbon Dioxide 26 (22-29) mmol/L Anion Gap 11 L (12-20) BUN 11 (9-16) mg/dL Creatinine 0.77 (0.5-1.4) mg/dL Estim Creat Clear Calc 98.1 Estimated GFR > 60 Random Glucose 141 H (60-115) mg/dL Calcium 8.4 (8.4-10.2) mg/dL Magnesium 2.0 (1.6-2.6) mg/dL Total Bilirubin 0.2 (0.0-1.0) mg/dL AST 28 (5-37) U/L ALT 27 (0-40) U/L Alkaline Phosphatase 121 H (39-117) U/L Total Protein 6.7 (6.5-8.0) g/dL Albumin 3.7 (3.5-5.0) g/dL Ethyl Alcohol 334 H* mg/dL COVID-19 (RYAN) Negative (Negative) COVID-19 Clin Com See Note Independent Interpretation I performed an independent interpretation of an: EKG Interpretation: Normal sinus rhythm heart rate 91 beats per minute normal interval normal axis no acute ST T wave changes no acute ischemia Medications Administered Discontinued Medications Generic Name Dose Route Start Last Admin Trade Name Freq PRN Reason Stop Dose Admin Sodium Chloride 1,000 mls @ 999 mls/hr 04/07/24 18:35 04/07/24 21:52 Ns IV 04/07/24 19:35 Infused .Q1H1M ONE Infusion Discharge Plan Discharge Clinical Impression: Depression, Alcohol intoxication Patient Disposition: Still a Patient Print Language: Greenlandic
[2024-04-07] MEDS: 0.9 % Sodium Chloride 1,000 ML 999 ML IV (20:20)
[2024-04-07 20:23] LABS: MANUAL DIFF FLAG NO
[2024-04-07 20:26] LABS: Basophils Absolute Auto 0.1 X10*3/uL (0.0-0.2); Basophils Percent Auto 1.4 % (0-2); Eosinophils Absolute Auto 0.2 X10*3/uL (0.0-0.4); Eosinophils Percent Auto 2.5 % (0-4); Hemoglobin 12.9 g/dl (14.0-18.0); Imm Gran Abs Auto 0.02 X10*3/uL (0.00-0.03); Imm Gran Pct Auto 0.3 % (0.0-0.4); Lymphocytes Absolute Auto 4.2 X10*3/uL (1.2-4.9); Lymphocytes Percent Auto 58.8 % (20-40); Mean Corpuscular HGB Conc 34.9 g/dl (31.0-36.0); Mean Corpuscular Hemoglobin 32.5 pg (27.0-33.0); Mean Corpuscular Volume 93.2 fL (80.0-98.0); Mean Platelet Volume 8.4 fL (9.4-12.4); Monocytes Absolute Auto 0.7 X10*3/uL (0.1-1.2); Monocytes Percent Auto 10.2 % (2-11); Neutrophils Absolute Auto 1.9 x10*3/uL (2.0-8.3); Neutrophils Percent Auto 26.8 % (45-73); Platelet Count 265 X10*3/uL (160-400); Red Blood Count 3.97 X10*6/uL (4.60-5.80); Red Cell Distribution Width 13.9 % (11.0-16.0); White Blood Count 7.1 X10*3/uL (4.8-10.8)
[2024-04-07 20:37] LABS: COVID-19 Test Negative (Negative); IDNOW Serial# 6674DD1D
[2024-04-07 20:48] LABS: Alanine Aminotransferase 27 U/L (0-40); Albumin Level 3.7 g/dL (3.5-5.0); Alkaline Phosphatase 121 U/L (39-117); Anion Gap 11 (12-20); Aspartate Amino Transferase 28 U/L (5-37); Bilirubin Total 0.2 mg/dL (0.0-1.0); Blood Urea Nitrogen 11 mg/dL (9-16); Calcium 8.4 mg/dL (8.4-10.2); Carbon Dioxide 26 mmol/L (22-29); Chloride 114 mmol/L (96-108); Creatinine Clr Calc Pharmacy 98.1; Estimated Glomerular Filt Rate > 60; Ethanol 334 mg/dL; Glucose Random 141 mg/dL (60-115); Potassium 3.4 mmol/L (3.3-5.1); Sodium 148 mmol/L (135-145); Total Protein 6.7 g/dL (6.5-8.0)
--- NOTE | 2024-04-07 22:00 | PC.NURSE ---
This caption writer assumed care of this Pt 1900. Pt primarily Rusian speaking, Jaye composite bond technician used (ID [id number]). Pt A&Ox3, calm and and cooperative, reports mild ZIMMER with nausea. Pt reports increase life stresses ( and daughter in November, Pt is living in car). Pt reports increase drinking (1 bottle Edwina/day), last drink WELT [employer]ER. SI with no plan. Sitter at bedside.
[2024-04-07 22:47] VITALS: BP 125/65; PULSE 77; RESP 17; TEMP 36.6; O2SAT 96
[2024-04-07 23:49] VITALS: BP 136/71; PULSE 79; RESP 16; TEMP 36.6; O2SAT 96
--- NOTE | 2024-04-07 23:50 | MHC.EDTECH ---
This tech took over care of patient at 2300,rounds and vitals completed,120mls of carrie nicole given per request.patient is resting quietly at this time.
--- NOTE | 2024-04-08 00:33 | MHC.EDTECH ---
Patient ambulated with this tech to the bathroom with a steady gait,UDS obtained and sent to lab
[2024-04-08 00:55] LABS: Amphetamine Screen Urine Not Detected (Not Detect); Barbiturates, Urine POSITIVE (Not Detect); Benzodiazepines Screen Urine Not Detected (Not Detect); Buprenorphine Scr Not Detected (Not Detect); Cannabinoid Screen Urine Not Detected (Not Detect); Cocaine Screen Urine Not Detected (Not Detect); Fentanyl, urine Not Detected (Not Detect); Methadone Screen, Urine Not Detected (Not Detect); Opiate Screen Urine Not Detected (Not Detect); Oxycodone Screen Urine Not Detected (Not Detect); Phencyclidine Screen Urine Not Detected (Not Detect)
[2024-04-08] MEDS: LORazepam 1 MG TABLET 2 MG PO ×4 (01:58→22:11)
[2024-04-08 02:00] VITALS: BP 143/80; PULSE 75; RESP 16; TEMP 36.6; O2SAT 96
--- NOTE | 2024-04-08 02:05 | MHC.EDTECH ---
Hourly rounds and vitals completed,patient was given two cups of ice water per request. patient is resting quietly
--- NOTE | 2024-04-08 02:50 | PC.NURSE ---
IV remove, report given and pt amb to the pod, with security
--- NOTE | 2024-04-08 05:55 | PC.NURSE ---
At 0245 patient was transferred from main ED, no distress observed/reported, CIWA score 0 at this time may withdraw/PRN Ativan 2 mg available, med rec completed/pending provider's approval, care consult ordered pending evaluation, will continue to monitor.
--- NOTE | 2024-04-08 07:07 | PC.NURSE ---
Assumed care of patient at 0645, patient appears to be sleeping, respirations even and unlabored, no apparent distress this am. Continue plan of care for patient to reach sober level and speak with CARE team
[2024-04-08] MEDS: Multivitamin TABLET 1 TAB PO (08:27)
[2024-04-08] MEDS: Thiamine HCL 100 MG TABLET PO (08:29)
[2024-04-08] MEDS: Acamprosate Calcium 333 MG TABLET.DR 666 MG PO ×3 (08:29→22:06)
[2024-04-08] MEDS: Sertraline HCL 50 MG TABLET PO (08:29)
[2024-04-08] MEDS: Folic Acid 1 MG TABLET PO (08:29)
[2024-04-08] MEDS: Nicotine 21 MG PATCH.TD24 TRANSDERMA (08:29)
[2024-04-08 08:42] VITALS: BP 154/85; PULSE 65; RESP 16; O2SAT 96
--- NOTE | 2024-04-08 08:42 | PC.NURSE ---
pt vomiting when speaking to Tanner from CARE team. this RN completed CIWA on pt, score of 13. Dr. Sanchez notified. 2mg Ativan PRN administered per MAR. Pt is moderately shaky, reporting headache and has some dry heaving at this time
[2024-04-08 12:42] VITALS: BP 174/84; PULSE 58; RESP 16; O2SAT 96
--- NOTE | 2024-04-08 12:44 | PC.NURSE ---
Patient continues to expereince some withdrawal symptoms, vitals and CIWA updated. MD aware. CARE team holding assessment until pt is medically cleared
--- NOTE | 2024-04-08 12:54 | MHC.CARE ---
T/W attempted to engage with Pt. Pt presented as very ill at this time. He was shaking and nurse was notified. Pt should be evaluated on second shift secondary to being medicated for withdrawal again.
--- NOTE | 2024-04-08 14:45 | MHC.CARE ---
Reached out to [facility], they have not seen him since December, and it was not for crisis. Per records, dx with etoh induced delusions and alcohol dependence.
--- NOTE | 2024-04-08 15:05 | MHC.CARE ---
Addendum entered by Ariane Harmon [facility] 04/08/24 15:16: It appears Isamar Cordova APRN at [place] is PCP, possibly. Original Note: Clinician at [facility] crisis reports that he is primarily seen for etoh, met briefly with crisis but not a full assessment, he was intoxicated and while intoxicated he reported vague SI. Additionally seen at [facility] in December, but was medically admitted for withdrawal seizures. No other info available.
[2024-04-08 18:24] VITALS: BP 162/83; PULSE 59; RESP 18; TEMP 36.8; O2SAT 97
--- NOTE | 2024-04-09 07:41 | PC.NURSE ---
Assumed care of patient at 0645, patient appears to be sleeping, respirations even and unlabored, no apparent distress noted. Continue plan of care for discharge this am
[2024-04-09] MEDS: Nicotine 21 MG PATCH.TD24 TRANSDERMA (08:28)
[2024-04-09] MEDS: Thiamine HCL 100 MG TABLET PO (08:29)
[2024-04-09] MEDS: Folic Acid 1 MG TABLET PO (08:29)
[2024-04-09] MEDS: Multivitamin TABLET 1 TAB PO (08:29)
[2024-04-09] MEDS: Sertraline HCL 50 MG TABLET PO (08:29)
[2024-04-09] MEDS: Acamprosate Calcium 333 MG TABLET.DR 666 MG PO (08:30)
--- NOTE | 2024-04-09 08:32 | MHC.CARE ---
Pt will be discharged and sent in a Lyft to [address] [place] [address] per his request.
[2024-04-09 08:39] VITALS: BP 152/74; PULSE 54; RESP 16; TEMP 36.6; O2SAT 96
== END 2024-04-09 08:50 | disposition home or self-care (01) ==
PROVIDERS: Emergency Provider Internal Medicine
DX: F33.1 Major depressive disorder, recurrent, moderate (principal); R06.02 Shortness of breath; Z11.52 Encounter for screening for COVID-19; Z71.41 Alcohol abuse counseling and surveillance of alcoholic; Z63.4 Disappearance and death of family member; Z51.81 Encounter for therapeutic drug level monitoring; Z79.899 Other long term (current) drug therapy
CPT/HCPCS: 80053; 80307; 83735; 85025; 87635; 93005; 96360; 96361; 99285; S9485

== ENCOUNTER 2025-01-28 10:14 | Inpatient (IN) | payer MEDICAID, SELFPAY ==
[2025-01-28] VITALS (9 sets, daily range): BP systolic 132–161; BP diastolic 65–99; PULSE 76–97; RESP 13–20; TEMP 36.3–36.8; O2SAT 94–100; BMI 20.8; BMI 22.8
--- NOTE | ~2025-01-28 | CT_ITS ---
EXAMINATION: CT HEAD WITHOUT CONTRAST CLINICAL INFORMATION: Altered mental status COMPARISON: June 01, 2020 TECHNIQUE: Contiguous axial imaging was performed from the skull base to vertex without intravenous administration of contrast. This CT examination was performed using dose optimization techniques as appropriate, variously including the following: *Automated exposure control *Adjustment of mA and/or kV according to patient size (this includes techniques or standardized protocols for targeted exams where dose is matched to indication/reason for exam; i.e. extremities or head) *Use of iterative reconstruction technique DLP: 687 mGY*cm FINDINGS: There is no acute ischemic change. There is no intracranial hemorrhage. There is no mass-effect or midline shift. Basal cisterns and ventricles are within normal limits for age/cerebral volume. Orbits are symmetrical and unremarkable. Mucosal thickening is present at the junction of the anterior ethmoid air cells and left frontal sinus. Paranasal sinuses and mastoid air cells are otherwise pneumatized. There are no bony destructive changes in the maxilla on the left likely related to carious molars. CT/CT head/brain wo IV con IMPRESSION: No acute intracranial abnormality. Destructive changes in the maxilla on the left is probably related to carious molars resulting in osteomyelitis. Electronically signed by: Carlos Sherwood MD 01/28/2025 01:03 PM EDT
--- NOTE | ~2025-01-28 | XR_ITS ---
EXAMINATION: XR HAND, LEFT CLINICAL INFORMATION: swelling COMPARISON: None available. TECHNIQUE: PA, lateral, and oblique views of the left hand. FINDINGS: A metal ring obscures the middle diaphysis of the third digit. Joint spaces are preserved. There are no osteophytes or erosions. There is no joint diastases or step-off. No fracture is evident. XR/XR hand LT min 3V IMPRESSION: Unremarkable left hand Electronically signed by: Carlos Sherwood MD 01/28/2025 11:30 AM EDT
--- NOTE | ~2025-01-28 | CT_ITS ---
EXAMINATION: CT WRIST WITHOUT CONTRAST, left CLINICAL INFORMATION: Snuffbox tenderness. DLP: 87 mGY*cm COMPARISON: X-ray performed earlier on same day TECHNIQUE: Axial CT imaging was performed between the mid to distal forearm and base of the fingers. Coronal and sagittal reformatted images were generated from the original axial data set. ALARA: The examination used one or more of the following radiation dose reduction techniques: Automated exposure control, iterative reconstruction, and/or adjustment of mA and/or KV. FINDINGS: No acute fracture line is evident. There is no joint diastases. There are no degenerative changes. Soft tissues are grossly unremarkable. CT/CT wrist LT wo IV con IMPRESSION: No fracture is evident. If snuffbox tenderness persists, follow-up with navicular x-rays in 10-14 days. Electronically signed by: Carlos Sherwood MD 01/28/2025 01:15 PM EDT
--- NOTE | 2025-01-28 11:19 | ED.EXTPRO ---
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 Patient states pain of his left hand has been occurring since he had lithotripsy procedure done at [facility] on 12-07 due to IV placement. Patient states he has felt weakness over the last 3 days where he feels like he can not get up onto his feet. Patient is somewhat confused, telling the antique jewelry repairer that he sees ?bunnies in front of me, and that I am on the TV. When asking the patient about his drinking history he is inconsistent, stating that he has been heavily drinking over the last 5 years then stating that he has not been drinking and has only increased his drinking over the last 2 weeks. He states that he drank heavily yesterday drinking a 0.5 L of vodka and several beers, and drank 2 beers today prior to arrival. Patient states he is feeling ?awful? experiencing fevers, headache, nausea, difficulty breathing, and has been living in his car. 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 Complaint: extremity pain (Left hand) Onset (ago): month(s) (2) Pain Consistency: constant Location: left Quality: aching Radiation: none Relieving factors: nothing Exacerbating factors: palpation Associated symptoms: shortness of breath, fever and other (Nausea) Related Data Home Medications ?Medication ?Instructions ?Recorded ?Confirmed acamprosate 333 mg tablet,delayed 666 mg PO TID 04/08/24 04/08/24 release folic acid 1 mg tablet 1 mg PO DAILY 04/08/24 04/08/24 multivitamin with folic acid 400 1 tab PO DAILY 04/08/24 04/08/24 mcg tablet (Daily-Julio (with folic acid)) nicotine 21 mg/24 hr daily 1 patch topical DAILY 04/08/24 04/08/24 transdermal patch sertraline 50 mg tablet 50 mg PO DAILY 04/08/24 04/08/24 thiamine HCl (vitamin B1) 100 mg 100 mg PO DAILY 04/08/24 04/08/24 tablet amlodipine 5 mg tablet 5 mg PO BEDTIME 01/28/25 famotidine 20 mg tablet 20 mg PO DAILY 01/28/25 tamsulosin 0.4 mg capsule 0.4 mg PO DAILY 01/28/25 topiramate 50 mg tablet 50 mg PO DAILY 01/28/25 Allergies Allergy/AdvReac Type Severity Reaction Status Date / Time No Known Allergies (No Known Allergy Verified 01/28/25 10:44 Allergies*) Review of Systems Review of Systems: CONST: Negative for body aches and chills. POS fever HENT: Negative for neck pain/stiffness, headache, congestion, sore throat, swelling. EYES: Negative for discharge/pain. POS vision changes-stating I see bunnies, you are on the TV RESP: Negative for cough/hemoptysis and shortness of breath. CV: Negative chest pain, palpitations. POS difficulty breathing ABD: Negative pain, nausea, vomiting. POS nausea : Negative increase frequency, dysuria, blood in urine or stool. MUSC: Negative for muscle aches, edema. SKIN: Negative rash, lesions/sores. NEURO: Negative dizziness. POS headache, weakness Yes all other systems are reviewed and are negative PMFSH Past Medical History Attestation statement: The following information was validated with the patient. Source: old records reviewed and nursing notes reviewed Medical History Alcoholism Social History Social History Alcohol intake: current Alcohol intake frequency: 3 or more drinks per day Alcohol type: beer Smoked in Last 30 Days: No Use of substances other than those prescribed or required for medical reasons: No Advance Directives: No Advance Directives Information Provided: Yes Physical Exam Vital Signs: Vital Signs: Last Vital Signs Temp 97.8 F 01/28/25 13:16 Pulse 77 01/28/25 13:16 Resp 18 01/28/25 13:16 BP 146/90 H 01/28/25 13:16 Pulse Ox 97 01/28/25 13:16 O2 Del Method Room Air 01/28/25 13:16 BMI result Body Mass Index 20.8 GENERAL APPEARANCE: ?AxOx3, tired appearing, disheveled, smells of alcohol and tobacco, no acute distress. HEENT: ?NC, AT. MMM. EOMI, clear conjunctiva, oropharynx clear. NECK: ?Supple without lymphadenopathy.? No stiffness or restricted ROM. HEART:? Normal rate and regular rhythm, normal S1/S1, no m/r/g LUNGS:? CTAB, moving air well. No crackles or wheezes are heard. ABDOMEN: ?Soft, nontender, nondistended with good bowel sounds heard. BACK: No CVAT, no obvious deformity. EXTREMITIES: ?Without cyanosis, clubbing or edema. NEUROLOGICAL: ?Grossly nonfocal. Alert and oriented, moving all 4 extremities. Patient aware of surroundings, oriented to person/place/time, but does not make sense. 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 Skin: ?Warm and dry without any rash. Medications Administered Discontinued Medications Generic Name Dose Route Start Last Admin Trade Name Rebekah PRN Reason Stop Dose Admin Lactated Ringer's 1,000 mls @ 999 mls/hr 01/28/25 12:23 01/28/25 13:36 Lr IV 01/28/25 13:23 999 mls/hr .Q1H1M ONE Administration Piperacillin Sod/Tazobactam 50 mls @ 100 mls/hr 01/28/25 13:48 01/28/25 14:43 Sod 3.375 gm/ Sodium Chloride IV 01/28/25 14:17 100 mls/hr ONCE ONE Administration Phenobarbital Sodium 275 mg 01/28/25 13:00 01/28/25 13:35 Phenobarbital Sodium 130 Mg/Ml Im Once IM 01/28/25 13:01 275 mg ONCE ONE Administration Protocol Medical Decision Making Medical Decision Making MDM Narrative: 59-year-old Greenlandic-speaking male with 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 Patient states pain of his left hand has been occurring since he had lithotripsy procedure done at [facility] on 12-07 due to IV placement. Patient states he has felt weakness over the last 3 days where he feels like he can not get up onto his feet. Patient is somewhat confused, telling the antique jewelry repairer that he sees ?diomedeses in front of me, and that I am on the TV. When asking the patient about his drinking history he is inconsistent, stating that he has been heavily drinking over the last 5 years then stating that he has not been drinking and has only increased his drinking over the last 2 weeks. He states that he drank heavily yesterday drinking a 0.5 L of vodka and several beers, and drank 2 beers today prior to arrival. Patient states he is feeling ?awful? experiencing fevers, headache, nausea, difficulty breathing but states he feels like this is due to anxiety for missing injury duty, and has been living in his car. VSS, patient is tired appearing, smells of alcohol and tobacco, in no acute distress, nontoxic appearing. On physical exam patient is exquisitely tender over medial left thumb/snuffbox area, unable to tell if this is true snuffbox tenderness or just pain of the soft tissue. No abdominal pain to palpation, no guarding, no rigidity, no overlying skin changes. Lungs CTAB, cardiac exam with a normal rate, rhythm, no murmurs/rubs/gallops. No lower extremity edema. Patient is alert and oriented x3, but does not make sense and is hard to get straight answers out of him when questioning. Patient has exquisite tenderness over the scaphoid region of the left hand, unclear if this is just pain of the soft tissue or true snuffbox tenderness. The left hand does not have a palpable cord, erythema, overlying skin changes-less likely phlebitis. Patient states he is seeing ?diomedeses in front of his eyes, and sees me on the television while asking him questions. When asking the patient if he had fallen recently he states yes, then states no he was doing work in the ceiling while holding a pistol. 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 It is difficult to determine if patient is exhibiting signs of Wernicke encephalopathy or is intoxicated due to ETOH level being 330. EKG without ST elevation/depression/T-wave inversions, initial troponin 2.7 WNL- less likely ACS. U tox negative, lactic acid level 2.8. Does not meet sepsis criteria at this time. X-ray of left hand negative for fracture/dislocation, CT wrist does not observe scaphoid fracture, acute soft tissue abnormality-less likely wrist fracture/scaphoid fracture. Ammonia levels WNL- less likely hyperammonemia. 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 Patient started with IV fluids, IV Zosyn, IV Vancomycin to prophylactically treat maxillary osteomyelitis. ED phenobarbital protocol initiated due to patient having history of alcohol withdrawal, seizures, bilateral mild hand tremors, questionable visual hallucinations. Hospitalist consulted for Dr. Rajesh godfrey accepted and patient will be admitted to medicine. Differential Diagnosis ETOH intoxication ETOH withdrawal Wernicke's encephalopathy Hyperammonemia Phlebitis Wrist fracture Scaphoid fracture Consult Healthcare Provider Management of the patient was discussed with: Hospitalist (Dr. Mena admitted to medicine) Lab Data MDM Lab Attestation statement: I reviewed the patient's lab results. 01/28/25 12:20 01/28/25 12:20 Labs: Lab Results 01/28/25 01/28/25 01/28/25 Range/Units 12:12 12:20 12:30 WBC 7.2 (4.8-10.8) X10*3/uL RBC 4.53 L (4.60-5.80) X10*6/uL Hgb 14.8 (14.0-18.0) g/dl Hct 43.3 (42.0-52.0) % MCV 95.6 (80.0-98.0) fL MCH 32.7 (27.0-33.0) pg MCHC 34.2 (31.0-36.0) g/dl RDW 13.6 (11.0-16.0) % Plt Count 309 (160-400) X10*3/uL MPV 8.3 L (9.4-12.4) fL Immature Gran % (Auto) 0.4 (0.0-0.4) % Neut % (Auto) 48.4 (45-73) % Lymph % (Auto) 44.4 H (20-40) % Orange % (Auto) 4.7 (2-11) % Eos % (Auto) 1.0 (0-4) % Baso % (Auto) 1.1 (0-2) % Lymph # (Auto) 3.2 (1.2-4.9) X10*3/uL Orange # (Auto) 0.3 (0.1-1.2) X10*3/uL Eos # (Auto) 0.1 (0.0-0.4) X10*3/uL Baso # (Auto) 0.1 (0.0-0.2) X10*3/uL Abs Immat Gran (auto) 0.03 (0.00-0.03) X10*3/uL Absolute Neuts (auto) 3.5 (2.0-8.3) x10*3/uL Absolute Nucleated RBC 0.000 (0.0-0.012) X10*3/uL Nucleated RBC % (auto) 0.0 (0.0-0.2) /100WBC VBG pH (7.32-7.43) VBG pCO2 mmHg VBG pO2 mmHg VBG HCO3 (22-26) mmol/L VBG O2 Saturation % VBG Base Excess mmol/L Sodium 142 (135-145) mmol/L Potassium 3.7 (3.3-5.1) mmol/L Chloride 110 H (96-108) mmol/L Carbon Dioxide 20 L (22-29) mmol/L Anion Gap 16 (12-20) BUN 11 (9-16) mg/dL Creatinine 0.63 (0.5-1.4) mg/dL Estim Creat Clear Calc 108.1 Estimated GFR > 60 Random Glucose 95 (60-115) mg/dL Lactic Acid (0.5-2.0) mmol/L Calcium 8.3 L (8.4-10.2) mg/dL Magnesium 2.0 (1.6-2.6) mg/dL Total Bilirubin 0.3 (0.0-1.0) mg/dL AST 36 (5-37) U/L ALT 28 (0-40) U/L Alkaline Phosphatase 102 (39-117) U/L Ammonia 31 (13-55) umol/L Troponin I High Sens < 2.7 (<3.5-35.0) ng/L Total Protein 7.0 (6.5-8.0) g/dL Albumin 3.9 (3.5-5.0) g/dL Urine Color Yellow Urine Appearance Clear Urine pH 5.5 (5.0-9.0) Ur Specific [place] <= 1.005 (1.005-1.025) Urine Protein Negative (Neg-Trace) mg/dL Urine Glucose (UA) Negative (Negative) mg/dL Urine Ketones Trace (Negative) mg/dL Urine Blood Negative (Negative) Urine Nitrite Negative (Negative) Ur Leukocyte Esterase Negative (Negative) Salicylates < 5.0 L (15-30) mg/dL Acetaminophen < 3 (<30) mcg/mL Ethyl Alcohol 330 H* mg/dL 01/28/25 01/28/25 Range/Units 12:34 14:15 WBC (4.8-10.8) X10*3/uL RBC (4.60-5.80) X10*6/uL Hgb (14.0-18.0) g/dl Hct (42.0-52.0) % MCV (80.0-98.0) fL MCH (27.0-33.0) pg MCHC (31.0-36.0) g/dl RDW (11.0-16.0) % Plt Count (160-400) X10*3/uL MPV (9.4-12.4) fL Immature Gran % (Auto) (0.0-0.4) % Neut % (Auto) (45-73) % Lymph % (Auto) (20-40) % Orange % (Auto) (2-11) % Eos % (Auto) (0-4) % Baso % (Auto) (0-2) % Lymph # (Auto) (1.2-4.9) X10*3/uL Orange # (Auto) (0.1-1.2) X10*3/uL Eos # (Auto) (0.0-0.4) X10*3/uL Baso # (Auto) (0.0-0.2) X10*3/uL Abs Immat Gran (auto) (0.00-0.03) X10*3/uL Absolute Neuts (auto) (2.0-8.3) x10*3/uL Absolute Nucleated RBC (0.0-0.012) X10*3/uL Nucleated RBC % (auto) (0.0-0.2) /100WBC VBG pH 7.39 (7.32-7.43) VBG pCO2 33 mmHg VBG pO2 60 mmHg VBG HCO3 20 L (22-26) mmol/L VBG O2 Saturation 85.0 % VBG Base Excess -3.5 mmol/L Sodium (135-145) mmol/L Potassium (3.3-5.1) mmol/L Chloride (96-108) mmol/L Carbon Dioxide (22-29) mmol/L Anion Gap (12-20) BUN (9-16) mg/dL Creatinine (0.5-1.4) mg/dL Estim Creat Clear Calc Estimated GFR Random Glucose (60-115) mg/dL Lactic Acid 2.8 H* (0.5-2.0) mmol/L Calcium (8.4-10.2) mg/dL Magnesium (1.6-2.6) mg/dL Total Bilirubin (0.0-1.0) mg/dL AST (5-37) U/L ALT (0-40) U/L Alkaline Phosphatase (39-117) U/L Ammonia (13-55) umol/L Troponin I High Sens (<3.5-35.0) ng/L Total Protein (6.5-8.0) g/dL Albumin (3.5-5.0) g/dL Urine Color Urine Appearance Urine pH (5.0-9.0) Ur Specific [place] (1.005-1.025) Urine Protein (Neg-Trace) mg/dL Urine Glucose (UA) (Negative) mg/dL Urine Ketones (Negative) mg/dL Urine Blood (Negative) Urine Nitrite (Negative) Ur Leukocyte Esterase (Negative) Salicylates (15-30) mg/dL Acetaminophen (<30) mcg/mL Ethyl Alcohol mg/dL Independent Interpretation I performed an independent interpretation of an: EKG, Plain X-Ray and CT Scan Interpretation: I independently interpreted the EKG Vent. Rate : 79 BPM Atrial Rate : 79 BPM P-R Int : 154 ms QRS Dur : 88 ms QT Int : 402 ms P-R-T Axes : 45 -31 26 degrees QTcB Int : 460 ms Normal sinus rhythm Left axis deviation Cannot rule out Anterior infarct , age undetermined Abnormal ECG When compared with ECG of 07-Apr-2024 20:04, No significant change was found Radiology Impression Discussion of test interpretation with radiology: I have reviewed the radiologist's reading. Radiologist Impression: CT head/brain FINDINGS: There is no acute ischemic change. There is no intracranial hemorrhage. There is no mass-effect or midline shift. Basal cisterns and ventricles are within normal limits for age/cerebral volume. Orbits are symmetrical and unremarkable. Mucosal thickening is present at the junction of the anterior ethmoid air cells and left frontal sinus. Paranasal sinuses and mastoid air cells are otherwise pneumatized. There are no bony destructive changes in the maxilla on the left likely related to carious molars. CT/CT head/brain wo IV con IMPRESSION: No acute intracranial abnormality. Destructive changes in the maxilla on the left is probably related to carious molars resulting in osteomyelitis. Electronically signed by: Carlos Sherwood MD 01/28/2025 01:03 PM EDT RP Dictated By: Carlos Sherwood MD Signed By: <Electronically signed by Carlos Sherwood MD in [place]> 01/28/[address] wrist FINDINGS: No acute fracture line is evident. There is no joint diastases. There are no degenerative changes. Soft tissues are grossly unremarkable. CT/CT wrist LT wo IV con IMPRESSION: No fracture is evident. If snuffbox tenderness persists, follow-up with navicular x-rays in 10-14 days. Electronically signed by: Carlos Sherwood MD 01/28/2025 01:15 PM EDT RP Dictated By: Carlos Shewrood MD Signed By: <Electronically signed by Carlos Sherwood MD in [place]> 01/28/25 1315 L wrist XR FINDINGS: A metal ring obscures the middle diaphysis of the third digit. Joint spaces are preserved. There are no osteophytes or erosions. There is no joint diastases or step-off. No fracture is evident. XR/XR hand LT min 3V IMPRESSION: Unremarkable left hand Electronically signed by: Carlos Sherwood MD 01/28/2025 11:30 AM EDT RP Dictated By: Carlos Sherwood MD Signed By: <Electronically signed by Carlos Sherwood MD in [place]> 01/28/25 1130 External Record Review External record reviewed: Inpatient record, Office record and Outpatient record Chronic Conditions Patient?s care impacted by: Other (Alcohol use disorder, history of alcohol seizures) Social Determinants Patient?s care significantly limited by Social Determinants of Health including: Inadequate housing Critical Care Time Critical Care Time Total Critical Care Time: 63 Attestation: I have personally provided 63 minutes of critical care time exclusive of time spent on separately billable procedures. Time includes review of lab data, radiology results, discussion with consultants, and monitoring for potential decompensation. Intervention performed as documented. Discharge Plan Discharge Clinical Impression: Alcohol intoxication, Osteomyelitis Print Language: Greenlandic
--- NOTE | 2025-01-28 11:24 | ECG_ITS ---
Test Reason : WEAKNESS Blood Pressure : */* mmHG Vent. Rate : 79 BPM Atrial Rate : 79 BPM P-R Int : 154 ms QRS Dur : 88 ms QT Int : 402 ms P-R-T Axes : 45 -31 26 degrees QTcB Int : 460 ms Normal sinus rhythm Cannot rule out Anterior infarct , age undetermined Abnormal ECG When compared with ECG of 07-Apr-2024 20:04, No significant change was found Referred By: Herb Valencia Electronically Signed By: James Martin
[2025-01-28 12:25] LABS: MANUAL DIFF FLAG NO
[2025-01-28 12:29] LABS: Basophils Absolute Auto 0.1 X10*3/uL (0.0-0.2); Basophils Percent Auto 1.1 % (0-2); Eosinophils Absolute Auto 0.1 X10*3/uL (0.0-0.4); Hematocrit 43.3 % (42.0-52.0); Hemoglobin 14.8 g/dl (14.0-18.0); Imm Gran Abs Auto 0.03 X10*3/uL (0.00-0.03); Imm Gran Pct Auto 0.4 % (0.0-0.4); Lymphocytes Absolute Auto 3.2 X10*3/uL (1.2-4.9); Lymphocytes Percent Auto 44.4 % (20-40); Mean Corpuscular HGB Conc 34.2 g/dl (31.0-36.0); Mean Corpuscular Hemoglobin 32.7 pg (27.0-33.0); Mean Corpuscular Volume 95.6 fL (80.0-98.0); Mean Platelet Volume 8.3 fL (9.4-12.4); Monocytes Absolute Auto 0.3 X10*3/uL (0.1-1.2); Monocytes Percent Auto 4.7 % (2-11); Neutrophils Absolute Auto 3.5 x10*3/uL (2.0-8.3); Neutrophils Percent Auto 48.4 % (45-73); Platelet Count 309 X10*3/uL (160-400); Red Blood Count 4.53 X10*6/uL (4.60-5.80); Red Cell Distribution Width 13.6 % (11.0-16.0); White Blood Count 7.2 X10*3/uL (4.8-10.8)
--- OUTSIDE RECORDS SUMMARY | 2025-01-28 12:32 | XMS_ITS ---
Author Name [facility] Organization Unknown Results Test Name/Text Value Interpretation Date Range Source Phosphate SerPl-mCnc 4.6mg/dL Above high normal [id number] 2.5 - 4.5 [facility] Magnesium SerPl-mCnc 1.7mg/dL [id number] 1.7 - 2.8 [facility] Glucose SerPl-mCnc 100mg/dL [id number] 70 - 199 [facility] Calcium SerPl-mCnc 8.9mg/dL [id number] 8.4 - 10 .2 [facility] BUN SerPl-mCnc 14mg/dL [id number] 9 - 20 [facility] Sodium SerPl-sCnc 136mmol/L [id number] 135 - 145 [facility] Creat SerPl-mCnc 0.81mg/dL [id number] 0.7 - 1.3 [facility] Chloride SerPl-sCnc 105mmol/L [id number] 98 - 107 [facility] eGFRcr SerPlBld CKD-EPI 2021 100mL/min/1.73m2 [id number] - [facility] BUN/Creat SerPl 17.3 [id number] 12 - 20 [facility] Anion Gap SerPl Calc-sCnc 9 [id number] 5 - 14 [facility] CO2 SerPl-sCnc 22mmol/L Below low normal [id number] 24 - 32 [facility] Potassium SerPl-sCnc 3.8mmol/L 307350398721 3.5 - 5.1 [facility] AST SerPl-cCnc 41unit/L Above high normal [id number] 5 - 40 [facility] Albumin SerPl-mCnc 3.6g/dL [id number] 3.5 - 5 [facility] ALT SerPl-cCnc 84unit/L Above high normal [id number] 7 - 52 [facility] Bilirub Indirect SerPl-mCnc 0.3mg/dL [facility] Bilirub SerPl-mCnc 0.4mg/dL 0.3 - 1 [facility] ALP SerPl-cCnc 67unit/L 34 - 104 [facility] Prot SerPl-mCnc 6.3g/dL Below low normal [id number] 6.4 - 8.5 [facility] Bilirub Direct SerPl-mCnc 0.1mg/dL 0 - 0.2 [facility] Neutrophils # Bld Auto 2.89K/mcL 1.8 - 7.8 [facility] RDW RBC Auto 13.2% 12.1 - 17.7 [facility] Lymphocytes # Bld Auto 3.27K/mcL Above high normal 1 - 3.2 [facility] Basophils # Bld Auto 0.04K/mcL 0 - 0.2 [facility] Hct VFr Bld Auto 39.9% Below low normal [id number] 40 - 54 [facility] Hgb Bld-mCnc 13.3g/dL Below low normal [id number] 13.5 - 18 [facility] Basophils NFr Bld Auto 0.5% 0 - 2 [facility] Neutrophils NFr Bld Auto 38.8% Below low normal [id number] 44 - 74 [facility] Monocytes # Bld Auto 0.99K/mcL Above high normal [id number] 0 - 0.8 [facility] Monocytes NFr Bld Auto 13.3% Above high normal [id number] 2 - 12 [facility] RBC # Bld Auto 4.09M/mcL Below low normal [id number] 4.7 - 6 [facility] MCH RBC Qn Auto 32.5pcg [id number] 25 - 33 [facility] RBC Auto 97.6FL 78 - 100 [facility] PMV Bld Auto 10FL 7.4 - 11.4 [facility] Eosinophil # Bld Auto 0.24K/mcL 0 - 0.5 [facility] Platelet # Bld Auto 149K/mcL Below low normal 150 - 450 [facility] WBC # Bld Auto 7.5K/mcL 4 - 10.5 [facility] Eosinophil NFr Bld Auto 3.2% 0 - 6 [facility] MCHC RBC Auto-EntMCnc 33.3g/dL 32 - 36 [facility] Lymphocytes NFr Bld Auto 43.9% 20 - 48 [facility] Creat SerPl-mCnc 0.74mg/dL 0.7 - 1.3 [facility] Potassium SerPl-sCnc 3.7mmol/L 3.5 - 5.1 [facility] CO2 SerPl-sCnc 20mmol/L Below low normal 24 - 32 [facility] Glucose SerPl-mCnc 104mg/dL 70 - 199 [facility] BUN/Creat SerPl 20.3 Above high normal [id number] 12 - 20 [facility] Anion Gap SerPl Calc-sCnc 10 [id number] 5 - 14 [facility] Chloride SerPl-sCnc 106mmol/L [id number] 98 - 107 [facility] Sodium SerPl-sCnc 136mmol/L [id number] 135 - 145 [facility] BUN SerPl-mCnc 15mg/dL [id number] 9 - 20 [facility] Calcium SerPl-mCnc 9.6mg/dL [id number] 8.4 - 10 .2 [facility] eGFRcr SerPlBld CKD-EPI 2020 103mL/min/1.73m2 [id number] - [facility] Magnesium SerPl-mCnc 1.7mg/dL [id number] 1.7 - 2.8 [facility] Phosphate SerPl-mCnc 4.9mg/dL Above high normal [id number] 2.5 - 4.5 [facility] Basophils NFr Bld Auto 0.7% [id number] 0 - 2 [facility] Platelet # Bld Auto 113K/mcL Below low normal [id number] 150 - 450 [facility] Neutrophils # Bld Auto 2.08K/mcL [id number] 1.8 - 7.8 [facility] Neutrophils NFr Bld Auto 38.3% Below low normal [id number] 44 - 74 [facility] Monocytes # Bld Auto 0.54K/mcL [id number] 0 - 0.8 [facility] RBC Auto 96.2FL [id number] 78 - 100 [facility] WBC # Bld Auto 5.4K/mcL [id number] 4 - 10.5 [facility] PMV Bld Auto 10.1FL [id number] 7.4 - 11.4 [facility] RDW RBC Auto 12.9% [id number] 12.1 - 17.7 [facility] MCH RBC Qn Auto 32.9pcg [id number] 25 - 33 [facility] Hgb Bld-mCnc 13.7g/dL [id number] 13.5 - 18 [facility] Eosinophil # Bld Auto 0.25K/mcL [id number] 0 - 0.5 [facility] Eosinophil NFr Bld Auto 4.6% [id number] 0 - 6 [facility] Lymphocytes # Bld Auto 2.51K/mcL [id number] 1 - 3.2 [facility] Lymphocytes NFr Bld Auto 46.1% [id number] 20 - 48 [facility] Hct VFr Bld Auto 40.1% [id number] 40 - 54 [facility] Monocytes NFr Bld Auto 9.9% [id number] 2 - 12 [facility] RBC # Bld Auto 4.17M/mcL Below low normal [id number] 4.7 - 6 [facility] Basophils # Bld Auto 0.04K/mcL [id number] 0 - 0.2 [facility] MCHC RBC Auto-EntMCnc 34.2g/dL [id number] 32 - 36 [facility] BUN/Creat SerPl 20.6 Above high normal [id number] 12 - 20 [facility] CO2 SerPl-sCnc 21mmol/L Below low normal [id number] 24 - 32 [facility] Potassium SerPl-sCnc 3.4mmol/L Below low normal [id number] 3.5 - 5.1 [facility] BUN SerPl-mCnc 14mg/dL [id number] 9 - 20 [facility] Chloride SerPl-sCnc 105mmol/L [id number] 98 - 107 [facility] Anion Gap SerPl Calc-sCnc 9 [id number] 5 - 14 [facility] Calcium SerPl-mCnc 8.6mg/dL [id number] 8.4 - 10 .2 [facility] Glucose SerPl-mCnc 104mg/dL [id number] 70 - 199 [facility] Creat SerPl-mCnc 0.68mg/dL Below low normal [id number] 0.7 - 1.3 [facility] Sodium SerPl-sCnc 135mmol/L [id number] 135 - 145 [facility] eGFRcr SerPlBld CKD-EPI 1 106mL/min/1.73m2 [id number] - [facility] Magnesium SerPl-mCnc 1.7mg/dL [id number] 1.7 - 2.8 [facility] RBC Auto 93.7FL [id number] 78 - 100 [facility] PMV Bld Auto 10.9FL [id number] 7.4 - 11.4 [facility] MCHC RBC Auto-EntMCnc 35.3g/dL [id number] 32 - 36 [facility] RBC # Bld Auto 4.11M/mcL Below low normal [id number] 4.7 - 6 [facility] Hgb Bld-mCnc 13.6g/dL [id number] 13.5 - 18 [facility] MCH RBC Qn Auto 33.1pcg Above high normal [id number] 25 - 33 [facility] RDW RBC Auto 12.4% 12.1 - 17.7 [facility] Hct VFr Bld Auto 38.5% Below low normal [id number] 40 - 54 [facility] Platelet # Bld Auto 76K/mcL Below low normal [id number] 150 - 450 [facility] WBC # Bld Auto 5.2K/mcL [id number] 4 - 10.5 [facility] Magnesium SerPl-mCnc 1.7mg/dL [id number] 1.7 - 2.8 [facility] Potassium SerPl-sCnc 3.2mmol/L Below low normal [id number] 3.5 - 5.1 [facility] Chloride SerPl-sCnc 102mmol/L 98 - 107 [facility] eGFRcr SerPlBld CKD-EPI 2020 110mL/min/1.73m2 [id number] - [facility] Glucose SerPl-mCnc 106mg/dL [id number] 70 - 199 [facility] Calcium SerPl-mCnc 8.7mg/dL [id number] 8.4 - 10 .2 [facility] CO2 SerPl-sCnc 22mmol/L Below low normal [id number] 24 - 32 [facility] Creat SerPl-mCnc 0.6mg/dL Below low normal [id number] 0.7 - 1.3 [facility] Anion Gap SerPl Calc-sCnc 10 [id number] 5 - 14 [facility] BUN/Creat SerPl 15 [id number] 12 - 20 [facility] BUN SerPl-mCnc 9mg/dL [id number] 9 - 20 [facility] Sodium SerPl-sCnc 134mmol/L Below low normal [id number] 13 5 - 145 [facility] Vit B12 SerPl-mCnc 795pcg/mL [id number] 180 - 91 4 [facility] PT Bld 12.1sec [id number] 10.5 - 13.3 [facility] INR PPP 1 [id number] 0.8 - 1.1 [facility] Phosphate SerPl-mCnc 2mg/dL Below low normal [id number] 2.5 - 4.5 [facility] Magnesium SerPl-mCnc 1.8mg/dL 1.7 - 2.8 [facility] Albumin SerPl-mCnc 3.8g/dL 3.5 - 5 [facility] Bilirub Indirect SerPl-mCnc 1.7mg/dL [facility] Prot SerPl-mCnc 6.8g/dL 6.4 - 8.5 [facility] ALT SerPl-cCnc 88unit/L Above high normal [id number] 7 - 52 [facility] AST SerPl-cCnc 94unit/L Above high normal 5 - 40 [facility] Bilirub SerPl-mCnc 2.1mg/dL Above high normal [id number] 0.3 - 1 [facility] ALP SerPl-cCnc 83unit/L 34 - 104 [facility] Bilirub Direct SerPl-mCnc 0.4mg/dL Above high normal [id number] 0 - 0.2 [facility] Hgb Bld-mCnc 13.7g/dL 13.5 - 18 [facility] Hct VFr Bld Auto 39.3% Below low normal [id number] 40 - 54 [facility] PMV Bld Auto 10.2FL 7.4 - 11.4 [facility] Lymphocytes # Bld Auto 1.8K/mcL [id number] 1 - 3.2 [facility] Monocytes # Bld Auto 0.44K/mcL [id number] 0 - 0.8 [facility] RBC # Bld Auto 4.18M/mcL Below low normal 4.7 - 6 [facility] MCHC RBC Auto-EntMCnc 34.9g/dL 32 - 36 [facility] WBC # Bld Auto 5.2K/mcL [id number] 4 - 10.5 [facility] Lymphocytes NFr Bld Auto 34.7% 20 - 48 [facility] Basophils NFr Bld Auto 0.8% 0 - 2 [facility] Neutrophils # Bld Auto 2.66K/mcL [id number] 1.8 - 7.8 [facility] Eosinophil # Bld Auto 0.23K/mcL [id number] 0 - 0.5 [facility] Neutrophils NFr Bld Auto 51.4% 44 - 74 [facility] Eosinophil NFr Bld Auto 4.4% 0 - 6 [facility] RBC Auto 94FL [id number] 78 - 100 [facility] Platelet # Bld Auto 81K/mcL Below low normal [id number] 150 - 450 [facility] RDW RBC Auto 12.6% 12.1 - 17.7 [facility] Monocytes NFr Bld Auto 8.5% [id number] 2 - 12 [facility] MCH RBC Qn Auto 32.8pcg 25 - 33 [facility] Basophils # Bld Auto 0.04K/mcL [id number] 0 - 0.2 [facility] Basophils NFr Bld Auto 0.8% [id number] 0 - 2 [facility] MCHC RBC Auto-EntMCnc 35.3g/dL [id number] 32 - 36 [facility] Basophils # Bld Auto 0.05K/mcL [id number] 0 - 0.2 [facility] RDW RBC Auto 12.9% [id number] 12.1 - 17.7 [facility] Hct VFr Bld Auto 37.1% Below low normal [id number] 40 - 54 [facility] WBC # Bld Auto 6.5K/mcL [id number] 4 - 10.5 [facility] Eosinophil # Bld Auto 0.08K/mcL [id number] 0 - 0.5 [facility] Lymphocytes NFr Bld Auto 34.7% [id number] 20 - 48 [facility] Platelet # Bld Auto 91K/mcL Below low normal [id number] 150 - 450 [facility] RBC Auto 93.7FL [id number] 78 - 100 [facility] Eosinophil NFr Bld Auto 1.2% 0 - 6 [facility] Monocytes NFr Bld Auto 7.5% [id number] 2 - 12 [facility] Neutrophils # Bld Auto 3.64K/mcL [id number] 1.8 - 7.8 [facility] Lymphocytes # Bld Auto 2.27K/mcL [id number] 1 - 3.2 [facility] RBC # Bld Auto 3.96M/mcL Below low normal 4.7 - 6 [facility] Neutrophils NFr Bld Auto 55.6% 44 - 74 [facility] Monocytes # Bld Auto 0.49K/mcL [id number] 0 - 0.8 [facility] Hgb Bld-mCnc 13.1g/dL Below low normal 13.5 - 18 [facility] MCH RBC Qn Auto 33.1pcg Above high normal [id number] 25 - 33 [facility] PMV Bld Auto 10.3FL [id number] 7.4 - 11.4 [facility] eGFRcr SerPlBld CKD-EPI 2020 105mL/min/1.73m2 [id number] - [facility] Sodium SerPl-sCnc 139mmol/L [id number] 135 - 145 [facility] Chloride SerPl-sCnc 103mmol/L [id number] 98 - 107 [facility] Albumin SerPl-mCnc 3.4g/dL Below low normal [id number] 3 .5 - 5 [facility] CO2 SerPl-sCnc 23mmol/L Below low normal [id number] 24 - 32 [facility] Prot SerPl-mCnc 6.3g/dL Below low normal [id number] 6.4 - 8.5 [facility] ALT SerPl-cCnc 84unit/L Above high normal [id number] 7 - 52 [facility] BUN/Creat SerPl 24.3 Above high normal [id number] 12 - 20 [facility] Bilirub SerPl-mCnc 1.5mg/dL Above high normal 0.3 - 1 [facility] BUN SerPl-mCnc 17mg/dL 9 - 20 [facility] Potassium SerPl-sCnc 3.9mmol/L 3.5 - 5.1 [facility] Glucose SerPl-mCnc 82mg/dL 70 - 199 [facility] AST SerPl-cCnc 106unit/L Above high normal 5 - 40 [facility] Anion Gap SerPl Calc-sCnc 13 5 - 14 [facility] Creat SerPl-mCnc 0.7mg/dL 0.7 - 1.3 [facility] Calcium SerPl-mCnc 7.6mg/dL Below low normal 8 .4 - 10.2 [facility] ALP SerPl-cCnc 79unit/L 34 - 104 [facility] Magnesium SerPl-mCnc 1.4mg/dL Below low normal 1.7 - 2.8 [facility] Pappenheimer Bod Bld Ql Smear Few Abnormal - [facility] RBC morph Bld RBC Morphology appears normal [facility] Hypochromia Bld Ql Smear Few Abnormal - [facility] Platelet Bld Ql Smear Platelets Appear Moderately Decreased Abnormal - [facility] Opiates Ur Ql Scn Negative - [facility] Barbiturates Ur Ql Scn Negative - [facility] fentaNYL Ur Ql Negative - [facility] oxyCODONE Ur Ql Scn Negative - [facility] Benzodiaz Ur Ql Scn Negative - [facility] Cocaine Ur Ql Scn Negative - [facility] Cannabinoids Ur Ql Scn Negative - [facility] Amphet Ur Ql Scn Negative - [facility] PCP Ur Ql Scn Negative - [facility] RBC #/area UrnS HPF 3/HPF [id number] 0 - 3 [facility] Squamous #/area UrnS HPF 2/HPF [id number] 0 - 5 [facility] WBC #/area UrnS HPF 1/HPF [id number] 0 - 5 [facility] Hgb Ur Ql Trace Abnormal [id number] - [facility] Nitrite Ur Ql Negative [id number] - [facility] Sp Gr Ur 1.02 [id number] 1.005 - 1.03 [facility] pH Ur 7pH [id number] 5 - 8 [facility] Color Ur Yellow [id number] - [facility] Glucose Ur Ql Negative [id number] - [facility] Clarity Ur Clear [id number] - [facility] Leukocyte esterase Ur Ql Strip Negative [id number] - [facility] Ketones Ur-mCnc 80mg/dL Abnormal - C [facility] Prot Ur Strip-mCnc 100mg/dL Abnormal - [facility] BUN/Creat SerPl 22 Above high normal 12 - 20 [facility] Albumin SerPl-mCnc 4.2g/dL 3.5 - 5 [facility] eGFRcr SerPlBld CKD-EPI 2020 96mL/min/1.73m2 - [facility] Calcium SerPl-mCnc 8.3mg/dL Below low normal 8 .4 - 10.2 [facility] BUN SerPl-mCnc 20mg/dL 9 - 20 [facility] AST SerPl-cCnc 134unit/L Above high normal 5 - 40 [facility] Bilirub SerPl-mCnc 1.1mg/dL Above high normal 0.3 - 1 [facility] Chloride SerPl-sCnc 101mmol/L 98 - 107 [facility] ALT SerPl-cCnc 103unit/L Above high normal 7 - 52 [facility] Prot SerPl-mCnc 7.8g/dL 6.4 - 8.5 [facility] ALP SerPl-cCnc 100unit/L 34 - 104 [facility] Creat SerPl-mCnc 0.91mg/dL 0.7 - 1.3 [facility] Anion Gap SerPl Calc-sCnc 19 Above high normal 5 - 14 [facility] Potassium SerPl-sCnc 3.4mmol/L Below low normal 3.5 - 5.1 [facility] Sodium SerPl-sCnc 141mmol/L 135 - 145 [facility] CO2 SerPl-sCnc 21mmol/L Below low normal 24 - 32 [facility] Glucose SerPl-mCnc 108mg/dL 70 - 199 [facility] Lipase SerPl-cCnc 56unit/L 11 - 82 [facility] Ethanol SerPl-mCnc 429mg/dL Above high normal 0 - 10 [facility] PMV Bld Auto 9.7FL 7.4 - 11.4 [facility] Neutrophils # Bld Auto 2.42K/mcL 1.8 - 7.8 [facility] Eosinophil # Bld Auto 0.03K/mcL 0 - 0.5 [facility] Platelet # Bld Auto 122K/mcL Below low normal 150 - 450 [facility] Basophils # Bld Auto 0.07K/mcL 0 - 0.2 [facility] Lymphocytes # Bld Auto 3.09K/mcL 1 - 3.2 [facility] Monocytes # Bld Auto 0.31K/mcL 0 - 0.8 [facility] RBC # Bld Auto 4.74M/mcL 4.7 - 6 [facility] Hgb Bld-mCnc 15.6g/dL 13.5 - 18 [facility] Hct VFr Bld Auto 44.2% 40 - 54 [facility] WBC # Bld Auto 5.9K/mcL 4 - 10.5 [facility] Lymphocytes NFr Bld Auto 52.1% Above high normal 20 - 48 [facility] RDW RBC Auto 13% 12.1 - 17.7 [facility] MCHC RBC Auto-EntMCnc 35.3g/dL 32 - 36 [facility] Neutrophils NFr Bld Auto 40.9% Below low normal 44 - 74 [facility] Eosinophil NFr Bld Auto 0.3% 0 - 6 [facility] RBC Auto 93.2FL 78 - 100 [facility] Monocytes NFr Bld Auto 5.2% 2 - 12 [facility] MCH RBC Qn Auto 32.9pcg 25 - 33 [facility] Basophils NFr Bld Auto 1.2% 0 - 2 [facility] History of Medication Use Medication Directions Dispensed Refills Start Date End Date Stat sodium chloride 0.9 % bolus 1,000 mL 1,000 mL, intravenous, at 500 mL/hr, Administer over 2 Hours, Once, On 01/10/25 at 0915, For 1 dose 01/10/2025 01/11/20 25 completed gabapentin (NEURONTIN) 400 mg capsule Take 1 capsule (400 mg total) by mouth 3 (three) times a day. 01/10/2025 active gabapentin (NEURONTIN) capsule 800 mg 800 mg, oral, Once, On 01/10/25 at 1230, For 1 dose 01/10/2025 active metoprolol tartrate (LOPRESSOR) 25 mg tablet Take 1 tablet (25 mg total) by mouth 2 (two) times a day. 01/10/2025 active peg 400-propylene glycol (ARTIFICIAL TEARS) 0.4-0.3 % ophthalmic solution drops 2 drop 2 drop, Both Eyes, Every 4 hours PRN, dry eyes, Starting on 01/10/25 at 1458 01/10/2025 active LORazepam (ATIVAN) tablet 2 mg [Order 1 Start] Name: LORazepam (ATIVAN) tablet 2 mg Signed Summary: 2 mg, oral, Every 1 hour PRN, CIWA-Ar 10-18, Starting on Sat01/09/25 at 1007, Re-assess CIWA-Ar in 1 hour Hold dose and notify provider for BP LESS than 90/60, RR LESS than 10 per minute, marked somnolence, pooling of secretions, 01/09/2025 active polyethylene glycol (MIRALAX) packet 17 g 17 g, oral, 2 times daily, First dose on Sat01/09/25 at 1145, Dissolve in 8oz of H2O, juice,soda or coffee HOLD IF DIARRHEA 01/09/2025 active prochlorperazine (COMPAZINE) injection 10 mg 10 mg, intravenous, Every 8 hours PRN, nausea, vomiting, Starting on Sat01/09/25 at 1545 01/08/2025 01/10/20 active thiamine (VITAMIN B-1) 500 mg in dextrose 5 % 50 mL IVPB 500 mg, intravenous, at 100 mL/hr, Administer over 30 Minutes, 3 times daily, First dose on Sat01/08/25 at 1400, For 5 days, Do not run in same line with magnesium. 01/08/2025 01/10/20 aborted hydrOXYzine pamoate (VISTARIL) capsule 50 mg 50 mg, oral, Every 8 hours PRN, itching, anxiety, Starting on Sat01/08/25 at 0939 01/08/2025 active pantoprazole (PROTONIX) 40 mg EC tablet Take 1 tablet (40 mg total) by mouth 1 (one) time each day before breakfast. Do not crush, chew, or split. 01/08/2025 active folic acid (FOLVITE) 1 mg tablet Take 1 tablet (1 mg total) by mouth 1 (one) time each day. 01/06/2025 01/11/20 active thiamine 100 mg tablet Take 1 tablet (100 mg total) by mouth 1 (one) time each day. 01/06/2025 01/11/20 active pantoprazole (PROTONIX) injection 40 mg 40 mg, intravenous, Administer over 2 Minutes, Every 12 hours scheduled, First dose on Sat01/06/25 at 1045, For 72 hours, Pantroprazole - IV push: Reconstitute powder for injection with 10 mL NS; final concentration: 4 mg/mL., Indication for IV Push Pantoprazole? EGD evidence of PUD with stigmata or 01/06/2025 01/09/20 aborted potassium phosphates 15 mmol in sodium chloride 0.9 % 250 mL infusion 15 mmol, intravenous, at 41.7 mL/hr, Administer over 6 Hours, Once, On Sat01/06/25 at 1030, For 1 dose, Each 3 mmol contains 4.4 mEq potassium. 01/06/2025 01/07/20 completed magnesium sulfate 2 gram/50 mL (4 %) IVPB 2 g 2 g, intravenous, at 25 mL/hr, Administer over 2 Hours, Once, On Sat01/10/25 at 1230, For 1 dose 01/05/2025 01/11/20 completed ketorolac (TORADOL) injection 15 mg 15 mg, intravenous, Every 8 hours scheduled, First dose on Sat01/08/25 at 1400, For 3 doses 01/05/2025 01/10/20 completed potassium chloride (KLOR-CON M10) CR tablet 40 mEq 40 mEq, oral, Once, On 01/09/25 at 1030, For 1 dose, Tablet may be swallowed whole (do not crush/chew/suck on) OR broken in half and each half swallowed separately OR dissolved (whole tablet) in ~4 ounces of water (allow ~2 minutes to dissolve, stir well and administer immediately). 01/05/2025 01/10/20 completed sodium chloride 0.9 % infusion 100 mL/hr, intravenous, Continuous, Starting on Sat01/05/25 at 0629 01/05/2025 01/08/20 aborted iopamidoL (ISOVUE-370) 370 mg iodine /mL (76 %) injection 100 mL 100 mL, intravenous, Once in imaging, Starting on Sat01/04/25 at 2056, For 1 dose 01/05/2025 01/06/20 completed ondansetron (PF) (ZOFRAN) injection 4 mg 4 mg, intravenous, Once, On Sat01/05/25 at 0323, For 1 dose 01/05/2025 01/06/20 completed sodium chloride 0.9 % flush 10 mL 10 mL, intravenous, Once, On Sat01/04/25 at 2057, For 1 dose 01/05/2025 01/06/20 completed sodium chloride 0.9 % intravenous solution 50 mL 50 mL, intravenous, Once in imaging, Starting on Sat01/04/25 at 2055, For 1 dose 01/05/2025 01/06/20 completed sodium chloride 0.9 % with KCl 40 mEq/L infusion 250 mL/hr, intravenous, Continuous, Starting on Sat01/05/25 at 0338, For 2 hours 01/05/2025 01/06/20 aborted acetaminophen (TYLENOL) tablet 650 mg 650 mg, oral, Every 6 hours PRN, mild pain, moderate pain, headaches, fever - temperature GREATER than 38 C (100.4 F), Starting on Sat01/05/25 at 0631 01/05/2025 active amLODIPine (NORVASC) tablet 5 mg 5 mg, oral, Daily, First dose on Sat01/05/25 at 0900 01/05/2025 active enoxaparin (LOVENOX) injection 40 mg 40 mg, subcutaneous, Daily, First dose on Sat01/05/25 at 0900, Indication: VTE/PE Prophylaxis 01/05/2025 active multivitamin minerals-iron (THERA-M) 1 tablet 1 tablet (1 each), oral, Daily, First dose on Sat01/05/25 at 0900 01/05/2025 active topiramate (TOPAMAX) tablet 50 mg 50 mg, oral, Daily, First dose on Sat01/05/25 at 0900, HAZARDOUS Drug Precautions - Low Risk (Category A/NIOSH Group 3) Reproductive Risk Only: - Do NOT split, crush, or open dosage units - Single pair of ASTM standard [id number] certified chemotherapy gloves - Eye protection (goggles or face shield) re 01/05/2025 active famotidine (PEPCID) tablet 20 mg 20 mg, oral, Daily, First dose on Sat01/05/25 at 0900, For 4 days 12/10/2024 01/11/20 aborted tamsulosin (FLOMAX) 0.4 mg 24 hr capsule Take 1 capsule (0.4 mg total) by mouth 1 (one) time each day. 12/10/2024 06/01/20 25 active topiramate (TOPAMAX) 50 mg tablet Take 1 tablet (50 mg total) by mouth 1 (one) time each day. 12/10/2024 active acetaminophen (TYLENOL 8 HOUR) 650 mg 8 hr tablet Take 1 tablet (650 mg total) by mouth 3 (three) times a day. Do not crush, chew, or split. 01/06/20 25 aborted oxyCODONE (ROXICODONE) 5 mg immediate release tablet 1 tablet (5 mg total) every 8 (eight) hours if needed for severe pain. Max Daily Amount: 15 mg 01/06/20 25 aborted Problems Problem Status Onset Date Problem Type Date of Resolution Source Hypokalemia active EncounterDiagnosisAct [facility] Elevated LFTs active EncounterDiagnosisAct [facility] Alcohol withdrawal ([facility] V24, [facility] V28) active 2025-01-05 ProblemAct [facility] Abdominal pain, generalized active EncounterDiagnosisAct [facility] Alcoholic intoxication without complication ([facility] V24) active 2025-01-05 ProblemAct [facility] Encounters Encounter Type Encounter Reason Primary Diagnosis Location Date Inpatient ETOH ABD PAIN Alcohol use, uns pecified with intoxication, uncomplicated ([facility] V24) [facility] 01/05/2025 Care Team Organization Name Specialty Phone Email Start Date End Da sylvia [facility] 01/05/2025 [facility] 01/04/2025
[2025-01-28 12:35] LABS: Ammonia 31 umol/L (13-55)
[2025-01-28 12:38] LABS: Venous Blood Gas Refer to POC result
[2025-01-28 12:39] LABS: VBG Base Excess -3.5 mmol/L; VBG HCO3 20 mmol/L (22-26); VBG pCO2 33 mmHg; VBG pH 7.39 (7.32-7.43); VBG pO2 60 mmHg
[2025-01-28 12:41] LABS: Ethanol 330 mg/dL
[2025-01-28 12:42] LABS: Alanine Aminotransferase 28 U/L (0-40); Albumin Level 3.9 g/dL (3.5-5.0); Alkaline Phosphatase 102 U/L (39-117); Anion Gap 16 (12-20); Aspartate Amino Transferase 36 U/L (5-37); Bilirubin Total 0.3 mg/dL (0.0-1.0); Blood Urea Nitrogen 11 mg/dL (9-16); Calcium 8.3 mg/dL (8.4-10.2); Carbon Dioxide 20 mmol/L (22-29); Chloride 110 mmol/L (96-108); Creatinine Clr Calc Pharmacy 108.1; Estimated Glomerular Filt Rate > 60; Glucose Random 95 mg/dL (60-115); Potassium 3.7 mmol/L (3.3-5.1); Sodium 142 mmol/L (135-145)
[2025-01-28 12:51] LABS: Troponin-I High Sensitivity < 2.7 ng/L (<3.5-35.0)
[2025-01-28 12:51] LABS: Appearance Urine Clear; Color Urine Yellow; Glucose Urine UA Negative (Negative); Leukocyte Esterase Urine Negative (Negative); Nitrite Urine Negative (Negative); PH 5.5 (5.0-9.0); Specific Gravity - Urine <= 1.005 (1.005-1.025); Urine Blood Negative (Negative); Urine Ketones Trace mg/dL (Negative); Urine Protein Negative (Neg-Trace)
[2025-01-28 12:55] LABS: Acetaminophen LAB < 3 mcg/mL (<30); Salicylate < 5.0 mg/dL (15-30)
--- NOTE | 2025-01-28 13:11 | PC.NURSE ---
interpeter used. pt is oriented to person, thinks he's at [facility] and that it's . reports shakes but none noted. reports vision is blurry . Pt states that he's agreeable to admission but wants help sending a letter to court.
[2025-01-28] MEDS: PHENobarbitaL sodium 130 MG/ML IM ONCE 275 MG IM (13:35)
[2025-01-28] MEDS: Lactated Ringers 1,000 ML 999 ML IV (13:36)
--- NOTE | 2025-01-28 13:38 | PC.NURSE ---
pt continues to c/o left hand pain, is very tender to touch. has jaw/mouth pain at this time. 03/21
[2025-01-28 14:40] LABS: Lactic Acid 2.8 mmol/L (0.5-2.0)
[2025-01-28] MEDS: Piperacillin Sodium/Tazobactam 3.375 GM in 0.9 % Sodium Chloride 50 ML IV ×2 (14:43→22:39)
[2025-01-28] MEDS: vancomycin HCL 1,500 MG in 0.9 % Sodium Chloride 500 ML 333.33 MG IV (15:26)
--- NOTE | 2025-01-28 15:35 | MHC.EDTECH ---
pt's vitals obtained, does not state any needs at this time, call olivo within reach
[2025-01-28 16:19] LABS: Reflex Lactate? Lactic Acid Added
[2025-01-28] MEDS: PHENobarbitaL sodium 130 MG/ML VIAL IM Q3Hx2 205 MG IM ×2 (16:25→19:45)
[2025-01-28] MEDS: Enoxaparin Sodium 40 MG/0.4 ML SYRINGE SUBCUT (16:25)
[2025-01-28 16:59] LABS: ~Lactic Acid-LAB USE ONLY 2.7 mmol/L (0.5-2.0)
--- NOTE | 2025-01-28 17:03 | PHA.MEDREC ---
Addendum entered by Mima Malone RP 01/28/25 17:41: acamprosate 333 mg , [facility] reviewed Original Note: Pharmacy Consult ? Medication Reconciliation Pharmacy has completed the medication reconciliation. Spoke to patient through liability claims manager service ( [id number]) to confirm med list. Patient states he is no longer taking Multivitamin , Nicotine Patch and Sertraline. Patient states he is still taking Acamprosate 666 mg, however last fill date was 10/31/24 for 30 days. Patient says he last took his medications yesterday.
--- NOTE | 2025-01-28 17:11 | PM.IMHP ---
History of Present Illness Date of Service: 01/28/25 Chief Complaint: Hand pain, alcohol intoxication A 59-year-old male with a history of heavy alcohol use disorder, alcohol withdrawal seizures, pancreatitis, hypertension, and recent kidney stone with hydronephrosis (s/p ureteroscopy, laser lithotripsy, and string stent placement in early December) presents with multiple complaints. He reports left hand pain since IV placement during his last hospitalization, with minimal swelling noted and an unremarkable hand CT. He is visibly intoxicated with a blood alcohol level of 330 mg/dL, reports unsteady gait, and has left jaw/tooth pain. 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 He is started on Zosyn (piperacillin-tazobactam) and vancomycin for presumed osteomyelitis. Labs show lactic acid 2.8 mmol/L (mildly elevated) and normal WBC. He is afebrile. Review of Systems Review of Systems: Gen: no fever Resp: no sob, no cough CV: no chest, no MABRY, no leg edema GI: No n/v, no abd pain Neuro: No confusion, no tremors, no convulsion MSK: left hand pain Yes all other systems are reviewed and are negative PMFSH Medical History Alcoholism Social History Household Members: None Housing: Homeless Housing Other:: lives with friends Do you presently have visiting nurse or other home services: No Alcohol intake: current Alcohol intake frequency: 3 or more drinks per day Alcohol type: beer Patient Tobacco Use Status: Current everyday Tobacco user Tobacco use type: Cigarette Cigarette Packs Per Day: 1 Cigarettes Per Day: 20.0 Years Smoked: 12 Smoked in Last 30 Days: Yes e-Cigarette/Vaping Use: Never Used Patient Interested in Nicotine Replacement: Yes Patient Given Instructions on How to Stop Smoking: Yes Date Education Initiated: 01/28/25 Use of substances other than those prescribed or required for medical reasons: No Currently Displaying Signs/Symptoms of Drug Intoxication Withdrawal: No Have you been hit, kicked, punched, or otherwise hurt by someone within the past year? If so, by whom?: No Do you feel safe in your current relationship?: No Is there a partner from a previous relationship who is making you feel unsafe now?: No Are you made to feel afraid or neglected: No Advance Directives: No Advance Directives Information Provided: Yes Do you have a plan to hurt others: No Plan Recently lost weight without trying: Yes How much weight loss: 2-13 pounds Nutrition Risks: No Nutritional Risk Poor oral hygiene: No Meds Allergies Allergy/AdvReac Type Severity Reaction Status Date / Time No Known Allergies (No Known Allergy Verified 01/28/25 10:44 Allergies*) Active Medications: Current Medications Acetaminophen (Acetaminophen 325 Mg Tablet) 650 mg PO Q6H PRN PRN Reason: Pain, Mild 1-3,fever,headache Calcium Carbonate (Calcium Carbonate 750 Mg Tab.Chew) 750 mg PO Q4H PRN PRN Reason: Heartburn Enoxaparin Sodium (Enoxaparin Sodium 40 Mg/0.4 Ml Syringe) 40 mg SUBCUT Q24H SHERIF Last Admin: 01/28/25 16:25 Dose: 40 mg Magnesium Hydroxide (Milk Of Magnesia 30 Ml Oral.Susp) 30 ml PO DAILY PRN PRN Reason: Constipation Melatonin (Melatonin 3 Mg Tablet) 6 mg PO BEDTIME PRN PRN Reason: Insomnia Ondansetron HCl (Ondansetron Hcl 4 Mg/2 Ml Vial) 4 mg IVPUSH Q8H PRN PRN Reason: Nausea and Vomiting Pharmacy Consult (Consult Rx Etoh Phenob Po Only) 1 each MISCELLANE ONCE PRN; Protocol PRN Reason: Consult order Phenobarbital (Phenobarbital 15 Mg Tablet) 45 mg PO BID HSERIF; Protocol Stop: 01/30/25 21:01 Phenobarbital (Phenobarbital 30 Mg Tablet) 30 mg PO BID SHERIF; Protocol Stop: 02/01/25 21:01 Phenobarbital (Phenobarbital 30 Mg Tablet) 30 mg PO DAILY SHERIF; Protocol Stop: 02/03/25 09:01 Phenobarbital Sodium (Phenobarbital Sodium 130 Mg/Ml Vial Im Q3hx2) 205 mg IM Q3H SHERIF; Protocol Stop: 01/28/25 19:01 Last Admin: 01/28/25 16:25 Dose: 205 mg Polyethylene Glycol (Polyethylene Glycol 3350 17 Gm Powd.Pack) 17 gm PO DAILY PRN PRN Reason: Constipation Sodium Chloride (0.9 % Sodium Chloride Flush 3 Ml Syringe) 3 ml IVFLUSH QSHIFT [facility] Last Admin: 01/28/25 16:26 Dose: Not Given Home Medications ?Medication ?Instructions ?Recorded ?Confirmed ?Last Taken ?Type acamprosate 333 mg tablet,delayed 333 mg PO TID 04/08/24 01/28/25 01/27/25 History release folic acid 1 mg tablet 1 mg PO DAILY 04/08/24 01/28/25 01/27/25 History thiamine HCl (vitamin B1) 100 mg 100 mg PO DAILY 04/08/24 01/28/25 01/27/25 History tablet amlodipine 5 mg tablet 5 mg PO BEDTIME 01/28/25 01/28/25 01/27/25 History famotidine 20 mg tablet 20 mg PO DAILY 01/28/25 01/28/25 01/27/25 History tamsulosin 0.4 mg capsule 0.4 mg PO DAILY 01/28/25 01/28/25 01/27/25 History topiramate 50 mg tablet 50 mg PO DAILY 01/28/25 01/28/25 01/27/25 History Physical Exam Vital Signs and Narrative: Vital Signs: Last Vital Signs Temp 97.9 F 01/28/25 15:34 Pulse 97 01/28/25 15:34 Resp 14 01/28/25 15:34 BP 132/72 01/28/25 15:34 Pulse Ox 95 01/28/25 15:34 O2 Del Method Room Air 01/28/25 15:34 BMI result Body Mass Index 20.8 Results Labs 01/29/25 06:16 01/29/25 06:16 Labs: Laboratory Results - last 24 hr 01/28/25 01/28/25 01/28/25 12:12 12:20 12:30 MCV 95.6 MCH 32.7 MCHC 34.2 RDW 13.6 Plt Count 309 MPV 8.3 L Immature Gran % (Auto) 0.4 Neut % (Auto) 48.4 Lymph % (Auto) 44.4 H [place] % (Auto) 4.7 Eos % (Auto) 1.0 Baso % (Auto) 1.1 Lymph # (Auto) 3.2 [place] # (Auto) 0.3 Eos # (Auto) 0.1 Baso # (Auto) 0.1 Abs Immat Gran (auto) 0.03 Absolute Neuts (auto) 3.5 Absolute Nucleated RBC 0.000 Nucleated RBC % (auto) 0.0 VBG pH VBG pCO2 VBG pO2 VBG HCO3 VBG O2 Saturation VBG Base Excess Anion Gap 16 Estim Creat Clear Calc 108.1 Estimated GFR > 60 Random Glucose 95 Lactic Acid Lactic Acid F/U @ 2Hr Calcium 8.3 L Magnesium 2.0 Total Bilirubin 0.3 AST 36 ALT 28 Alkaline Phosphatase 102 Ammonia 31 Troponin I High Sens < 2.7 Total Protein 7.0 Albumin 3.9 Urine Color Yellow Urine Appearance Clear Urine pH 5.5 Ur Specific [place] <= 1.005 Urine Protein Negative Urine Glucose (UA) Negative Urine Ketones Trace Urine Blood Negative Urine Nitrite Negative Ur Leukocyte Esterase Negative Salicylates < 5.0 L Acetaminophen < 3 Ethyl Alcohol 330 H* 01/28/25 01/28/25 01/28/25 12:34 14:15 16:33 MCV MCH MCHC RDW Plt Count MPV Immature Gran % (Auto) Neut % (Auto) Lymph % (Auto) [place] % (Auto) Eos % (Auto) Baso % (Auto) Lymph # (Auto) [place] # (Auto) Eos # (Auto) Baso # (Auto) Abs Immat Gran (auto) Absolute Neuts (auto) Absolute Nucleated RBC Nucleated RBC % (auto) VBG pH 7.39 VBG pCO2 33 VBG pO2 60 VBG HCO3 20 L VBG O2 Saturation 85.0 VBG Base Excess -3.5 Anion Gap Estim Creat Clear Calc Estimated GFR Random Glucose Lactic Acid 2.8 H* Lactic Acid F/U @ 2Hr 2.7 H* Calcium Magnesium Total Bilirubin AST ALT Alkaline Phosphatase Ammonia Troponin I High Sens Total Protein Albumin Urine Color Urine Appearance Urine pH Ur Specific [place] Urine Protein Urine Glucose (UA) Urine Ketones Urine Blood Urine Nitrite Ur Leukocyte Esterase Salicylates Acetaminophen Ethyl Alcohol Imaging Radiologist's Impressions: Impressions Hand X-Ray 01/28/25 10:22 IMPRESSION: Unremarkable left hand Electronically signed by: Carlos Sherwood MD 01/28/2025 11:[address] 01/28/25 11:31 IMPRESSION: No acute intracranial abnormality. Destructive changes in the maxilla on the left is probably related to carious molars resulting in osteomyelitis. Electronically signed by: Carlos Sherwood MD 01/28/2025 01:03 PM EDT RP Wrist CT 01/28/25 11:34 IMPRESSION: No fracture is evident. If snuffbox tenderness persists, follow-up with navicular x-rays in 10-14 days. Electronically signed by: Carlos Sherwood MD 01/28/2025 01:15 PM EDT RP Assessment and Plan (1) Alcohol intoxication: Status: Acute (2) Osteomyelitis: Qualifiers: Osteomyelitis location: unspecified site Osteomyelitis type: unspecified type Qualified Code(s): M86.9 - Osteomyelitis, unspecified Status: Acute Plan A 59-year-old male with a history of heavy alcohol use disorder, alcohol withdrawal seizures, pancreatitis, hypertension, and recent kidney stone with hydronephrosis (s/p ureteroscopy, laser lithotripsy, and string stent placement in early December) presents with multiple complaints. He reports left hand pain since IV placement during his last hospitalization, with minimal swelling noted and an unremarkable hand CT. He is visibly intoxicated with a blood alcohol level of 330 mg/dL, reports unsteady gait, and has left jaw/tooth pain. 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 ID consult, will likely need IV Abx for 4 to 6 week Follow cultures Outpatient Dental follow up Unsteady Gait: Likely multifactorial (intoxication, possible cerebellar dysfunction from chronic alcohol use, or neuropathy) Head CT rules out acute intracranial causes. Monitor gait improvement as alcohol level decreases consider neurology consult if persistent (e.g., for cerebellar degeneration or B12 deficiency). PT eval Left Hand Pain, minimal pain, no erythema conservative manaement with pain meds monitor for sings of cellulitis, presently none Mildly Elevated Lactic Acid (2.8 mmol/L), level essentially flat Likely due to alcohol intoxication (type B lactic acidosis from impaired lactate clearance), not due to sepsis Mild metabolic acisois, likely from alcohol and lactic acidosis monitor bicab HTN Norvasc Seizure d/o Topomax DVT prophylaxis: Lovenox Diet: regular Full code Quality Stroke Does the patient have a stroke diagnosis?: No VTE Prior VTE?: No VTE Risk Level:: Medical - moderate - high VTE Device Contraindication: Treatment Not Indicated VTE Drug Contraindication: N/A - Med Ordered
--- NOTE | 2025-01-28 18:10 | PHA.PROG ---
Admission Date/Time: January 28, 2025 14:04 Indication: BONE AND JOINT Weight in k.1 kg Adjusted body weight in Kg: [place] body weight in Kg: Obesity Dosing Indication % IBW: Serum Creatinine - Last 168 Hours 01/28/25 12:20 Creatinine 0.63 Estimated CrCl and GFR - Last 168 Hours 01/28/25 12:20 Estim Creat Clear Calc 108.1 Estimated GFR > 60 Vancomycin Loading Dose: 1500 mg Current Vancomycin Dosing Regimen: 750 mg q8h Vancomycin Monitoring using AUC goal of 400 - 600 range with trough as surrogate marker: LZZ=[id number] TROUGH=17.6 Date and Time for next Vancomycin Level to be drawn: 01/29/25 @1400 Pharmacist Comments on Vancomycin Plan: Vancomycin dosing will take advantage of Room[employer] as a clinical decision support tool that uses Bayesian modeling to calculate individual patient's pharmacokinetic parameters and forecast the patient's drug concentration time course with the target goal AUC 24 range of 400 - 600 mg/L/hr.
[2025-01-28] MEDS: Lactated Ringers 1,000 ML 125 ML IVCONT (18:32)
[2025-01-28] MEDS: Thiamine HCL 100 MG in 0.9 % Sodium Chloride 100 ML 202 MG IV (18:34)
[2025-01-28 18:36] LABS: Reflex Lactate? 2 Y
--- NOTE | 2025-01-28 19:02 | MHC.EDTECH ---
300mL of yellow urine output into urinal
[2025-01-28] MEDS: Folic Acid 1 MG in 0.9 % Sodium Chloride 50 ML 100.4 MG IV (19:44)
[2025-01-28] MEDS: ondansetron HCL 4 MG/2 ML VIAL IVPUSH (20:29)
--- NOTE | 2025-01-28 20:40 | PC.NURSE ---
assumed care of pt at 1900. pt complains of nausea. Pt medicated per MAR
--- NOTE | 2025-01-28 21:17 | PC.NURSE ---
Senior Visual Designer at bedside through camera system. Pt LAVERNE ayoub 4 and documented in chart. Pt awaiting transport to inpatient bed assignment.
--- NOTE | 2025-01-28 21:18 | PC.NURSE ---
Pt sleeping at this time, awaiting transport for bed assignment.
[2025-01-28] MEDS: amLODIPine Besylate 5 MG TABLET PO (22:34)
[2025-01-28] MEDS: LORazepam 1 MG TABLET PO (22:34)
[2025-01-28] MEDS: 0.9 % Sodium Chloride Flush 3 ML SYRINGE IVFLUSH (22:44)
[2025-01-28] MEDS: vancomycin HCL 750 MG in 0.9 % Sodium Chloride 250 ML 265 MG IV (23:23)
[2025-01-29] VITALS (7 sets, daily range): BP systolic 127–171; BP diastolic 69–89; PULSE 67–88; RESP 16–18; TEMP 36.2–36.8; O2SAT 95–98
[2025-01-29] MEDS: Piperacillin Sodium/Tazobactam 3.375 GM in 0.9 % Sodium Chloride 50 ML IV ×4 (02:50→21:36)
--- NOTE | 2025-01-29 03:23 | PC.NURSE ---
This RN assumed care at 2129, pts C/o is left wrist pain and difficulty moving it, along with a headache. 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 Pt reported that he is living with some friends at this time. Reports recently being [place] [facility] [place] and since then he has had some urinary hesitancy. Increased weakness lately with difficulty walking, along with SOB withe exertion, lungs sound clear, and able to speak in full sentences, BSx4, non-tender abd. Skin is intact, no open areas noted. Pt reports drinking alcohol to stop the pain in my left hand, takes about three drinks. Reports only drinks a few times a month, pt asked if he wants help to quit and he refused. Pt's CIWA on admission came out to be 7, Dr. Gordon made aware, new order placed, meds given per OCT.
[2025-01-29] MEDS: Lactated Ringers 1,000 ML 125 ML IVCONT ×2 (05:03→16:34)
[2025-01-29 06:47] LABS: Creatinine Clr Calc Pharmacy 111.3; Estimated Glomerular Filt Rate > 60
[2025-01-29 07:26] LABS: Folate 9.2 ng/mL (> or = 4.0); Vitamin B12 534 pg/mL (200-900)
[2025-01-29 07:38] LABS: MANUAL DIFF FLAG NO
[2025-01-29 07:41] LABS: Basophils Absolute Auto 0.1 X10*3/uL (0.0-0.2); Basophils Percent Auto 1.4 % (0-2); Eosinophils Absolute Auto 0.3 X10*3/uL (0.0-0.4); Eosinophils Percent Auto 4.5 % (0-4); Hematocrit 40.6 % (42.0-52.0); Imm Gran Abs Auto 0.02 X10*3/uL (0.00-0.03); Imm Gran Pct Auto 0.3 % (0.0-0.4); Mean Corpuscular HGB Conc 34.5 g/dl (31.0-36.0); Mean Corpuscular Hemoglobin 32.8 pg (27.0-33.0); Mean Corpuscular Volume 95.1 fL (80.0-98.0); Mean Platelet Volume 8.9 fL (9.4-12.4); Monocytes Absolute Auto 0.6 X10*3/uL (0.1-1.2); Monocytes Percent Auto 10.8 % (2-11); Neutrophils Absolute Auto 2.8 x10*3/uL (2.0-8.3); Platelet Count 273 X10*3/uL (160-400); Red Blood Count 4.27 X10*6/uL (4.60-5.80); Red Cell Distribution Width 13.5 % (11.0-16.0); White Blood Count 5.7 X10*3/uL (4.8-10.8)
[2025-01-29 07:57] LABS: Alanine Aminotransferase 21 U/L (0-40); Albumin Level 3.2 g/dL (3.5-5.0); Alkaline Phosphatase 88 U/L (39-117); Anion Gap 12 (12-20); Aspartate Amino Transferase 35 U/L (5-37); Bilirubin Direct 0.4 mg/dL (0.0-0.5); Carbon Dioxide 23 mmol/L (22-29); Chloride 108 mmol/L (96-108); Magnesium 1.6 mg/dL (1.6-2.6); Potassium 3.9 mmol/L (3.3-5.1); Sodium 139 mmol/L (135-145); Total Protein 5.9 g/dL (6.5-8.0)
[2025-01-29] MEDS: vancomycin HCL 750 MG in 0.9 % Sodium Chloride 250 ML 265 MG IV ×2 (08:27→16:32)
[2025-01-29] MEDS: PHENobarbitaL 15 MG TABLET 45 MG PO ×2 (08:28→21:30)
[2025-01-29] MEDS: Topiramate 25 MG TABLET 50 MG PO (08:29)
[2025-01-29] MEDS: Tamsulosin HCL 0.4 MG CAPSULE PO (08:29)
[2025-01-29] MEDS: Famotidine 20 MG TABLET PO (08:29)
--- NOTE | 2025-01-29 09:19 | P.PNIM_ITS ---
Subjective Subjective Date of Service: 01/29/25 Interval History: LAVER[place] 7, has left hand pain, and jaw pain Physical Exam 2 Vital Signs: Vital Signs: Last Vital Signs Temp 97.1 F 01/29/25 07:21 Pulse 81 01/29/25 07:21 Resp 16 01/29/25 07:21 BP 171/89 H 01/29/25 07:21 Pulse Ox 95 01/29/25 07:21 O2 Del Method Room Air 01/29/25 07:21 BMI result Body Mass Index 22.8 General: AO X 3, no acute distress HEEBNT: poor dentition on left side with visibly decayed tooth Resp: CTA bilateral CVS: S1,S2,RRR GI: +BS, NT, no distention Skin: No rash Ext: no swelling of the left hand or erythema Neuro: motor grossly intact Psych: appropriate affect Objective Data Active Medications Acetaminophen (Acetaminophen 325 Mg Tablet) 650 mg PO Q6H PRN PRN Reason: Pain, Mild 1-3,fever,headache Amlodipine Besylate (Amlodipine Besylate 5 Mg Tablet) 5 mg PO BEDTIME [facility]; Protocol Last Admin: 01/28/25 22:34 Dose: 5 mg Documented By: LAURIE Calcium Carbonate (Calcium Carbonate 750 Mg Tab.Chew) 750 mg PO Q4H PRN PRN Reason: Heartburn Enoxaparin Sodium (Enoxaparin Sodium 40 Mg/0.4 Ml Syringe) 40 mg SUBCUT Q24H [facility] Last Admin: 01/28/25 16:25 Dose: 40 mg Documented By: FÁTIMA Famotidine (Famotidine 20 Mg Tablet) 20 mg PO DAILY [facility] Last Admin: 01/29/25 08:29 Dose: 20 mg Documented By: KEN Lactated Ringer's (Lr) 1,000 mls @ 125 mls/hr IVCONT .Q8H [facility] Last Admin: 01/29/25 05:03 Dose: 125 mls/hr Documented By: LAURIE Comments: fluids off track since brought up from ED Folic Acid 1 mg/ Sodium (Chloride) 50.2 mls @ 100.4 mls/hr IV DAILY [facility] Stop: 01/30/25 09:29 Last Infusion: 01/28/25 20:24 Dose: Infused Documented By: MAXIMUS Thiamine HCl 100 mg/ Sodium (Chloride) 101 mls @ 202 mls/hr IV DAILY [facility] Stop: 01/30/25 09:29 Last Infusion: 01/28/25 19:10 Dose: Infused Documented By: MAXIUMS Piperacillin Sod/Tazobactam (Sod 3.375 gm/ Sodium Chloride) 50 mls @ 100 mls/hr IV Q6H [facility] Last Infusion: 01/29/25 03:20 Dose: Infused Documented By: LAURIE Vancomycin HCl 750 mg/ Sodium (Chloride) 265 mls @ 265 mls/hr IV Q8H [facility] Last Admin: 01/29/25 08:27 Dose: 265 mls/hr Documented By: KEN Magnesium Hydroxide (Milk Of Magnesia 30 Ml Oral.Susp) 30 ml PO DAILY PRN PRN Reason: Constipation Melatonin (Melatonin 3 Mg Tablet) 6 mg PO BEDTIME PRN PRN Reason: Insomnia Ondansetron HCl (Ondansetron Hcl 4 Mg/2 Ml Vial) 4 mg IVPUSH Q8H PRN PRN Reason: Nausea and Vomiting Last Admin: 01/28/25 20:29 Dose: 4 mg Documented By: MAXIMUS Pharmacy Consult (Consult Rx Etoh Phenob Po Only) 1 each MISCELLANE ONCE PRN; Protocol PRN Reason: Consult order Pharmacy Consult (Consult Rx Vancomycin Dosing) 1 each MISCELLANE DAILY PRN PRN Reason: Consult order Phenobarbital (Phenobarbital 15 Mg Tablet) 45 mg PO BID [facility]; Protocol Stop: 01/30/25 21:01 Last Admin: 01/29/25 08:28 Dose: 45 mg Documented By: KEN Phenobarbital (Phenobarbital 30 Mg Tablet) 30 mg PO BID [facility]; Protocol Stop: 02/01/25 21:01 Phenobarbital (Phenobarbital 30 Mg Tablet) 30 mg PO DAILY [facility]; Protocol Stop: 02/03/25 09:01 Polyethylene Glycol (Polyethylene Glycol 3350 17 Gm Powd.Pack) 17 gm PO DAILY PRN PRN Reason: Constipation Sodium Chloride (0.9 % Sodium Chloride Flush 3 Ml Syringe) 3 ml IVFLUSH QSHIFT [facility] Last Admin: 01/28/25 22:44 Dose: 3 ml Documented By: LAURIE Tamsulosin HCl (Tamsulosin Hcl 0.4 Mg Capsule) 0.4 mg PO DAILY [facility] Last Admin: 01/29/25 08:29 Dose: 0.4 mg Documented By: KEN Topiramate (Topiramate 25 Mg Tablet) 50 mg PO DAILY [facility] Last Admin: 01/29/25 08:29 Dose: 50 mg Documented By: KEN Labs 01/29/25 06:16 01/29/25 06:16 Labs: Laboratory Results - last 24 hr 01/28/25 01/28/25 01/28/25 12:12 12:20 12:30 MCV 95.6 MCH 32.7 MCHC 34.2 RDW 13.6 Plt Count 309 MPV 8.3 L Immature Gran % (Auto) 0.4 Neut % (Auto) 48.4 Lymph % (Auto) 44.4 H [place] % (Auto) 4.7 Eos % (Auto) 1.0 Baso % (Auto) 1.1 Lymph # (Auto) 3.2 [place] # (Auto) 0.3 Eos # (Auto) 0.1 Baso # (Auto) 0.1 Abs Immat Gran (auto) 0.03 Absolute Neuts (auto) 3.5 Absolute Nucleated RBC 0.000 Nucleated RBC % (auto) 0.0 Hold Purple Top VBG pH VBG pCO2 VBG pO2 VBG HCO3 VBG O2 Saturation VBG Base Excess Anion Gap 16 Estim Creat Clear Calc 108.1 Estimated GFR > 60 Random Glucose 95 Lactic Acid Lactic Acid F/U @ 2Hr Lactic Acid F/U @ 4Hr Calcium 8.3 L Magnesium 2.0 Total Bilirubin 0.3 Direct Bilirubin AST 36 ALT 28 Alkaline Phosphatase 102 Ammonia 31 Troponin I High Sens < 2.7 Total Protein 7.0 Albumin 3.9 Vitamin B12 Folate Urine Color Yellow Urine Appearance Clear Urine pH 5.5 Ur Specific [place] <= 1.005 Urine Protein Negative Urine Glucose (UA) Negative Urine Ketones Trace Urine Blood Negative Urine Nitrite Negative Ur Leukocyte Esterase Negative Salicylates < 5.0 L Acetaminophen < 3 Ethyl Alcohol 330 H* 01/28/25 01/28/25 01/28/25 12:34 14:15 16:33 MCV MCH MCHC RDW Plt Count MPV Immature Gran % (Auto) Neut % (Auto) Lymph % (Auto) [place] % (Auto) Eos % (Auto) Baso % (Auto) Lymph # (Auto) [place] # (Auto) Eos # (Auto) Baso # (Auto) Abs Immat Gran (auto) Absolute Neuts (auto) Absolute Nucleated RBC Nucleated RBC % (auto) Hold Purple Top VBG pH 7.39 VBG pCO2 33 VBG pO2 60 VBG HCO3 20 L VBG O2 Saturation 85.0 VBG Base Excess -3.5 Anion Gap Estim Creat Clear Calc Estimated GFR Random Glucose Lactic Acid 2.8 H* Lactic Acid F/U @ 2Hr 2.7 H* Lactic Acid F/U @ 4Hr Calcium Magnesium Total Bilirubin Direct Bilirubin AST ALT Alkaline Phosphatase Ammonia Troponin I High Sens Total Protein Albumin Vitamin B12 Folate Urine Color Urine Appearance Urine pH Ur Specific [place] Urine Protein Urine Glucose (UA) Urine Ketones Urine Blood Urine Nitrite Ur Leukocyte Esterase Salicylates Acetaminophen Ethyl Alcohol 01/28/25 01/29/25 19:00 06:16 MCV 95.1 MCH 32.8 MCHC 34.5 RDW 13.5 Plt Count 273 MPV 8.9 L Immature Gran % (Auto) 0.3 Neut % (Auto) 49.0 Lymph % (Auto) 34.0 [place] % (Auto) 10.8 Eos % (Auto) 4.5 H Baso % (Auto) 1.4 Lymph # (Auto) 2.0 [place] # (Auto) 0.6 Eos # (Auto) 0.3 Baso # (Auto) 0.1 Abs Immat Gran (auto) 0.02 Absolute Neuts (auto) 2.8 Absolute Nucleated RBC 0.000 Nucleated RBC % (auto) 0.0 Hold Purple Top SEE NOTE VBG pH VBG pCO2 VBG pO2 VBG HCO3 VBG O2 Saturation VBG Base Excess Anion Gap 12 Estim Creat Clear Calc 111.3 Estimated GFR > 60 Random Glucose Lactic Acid Lactic Acid F/U @ 2Hr Lactic Acid F/U @ 4Hr 3.0 H* Calcium Magnesium 1.6 Total Bilirubin 1.0 Direct Bilirubin 0.4 AST 35 ALT 21 Alkaline Phosphatase 88 Ammonia Troponin I High Sens Total Protein 5.9 L Albumin 3.2 L Vitamin B12 534 Folate 9.2 Urine Color Urine Appearance Urine pH Ur Specific [place] Urine Protein Urine Glucose (UA) Urine Ketones Urine Blood Urine Nitrite Ur Leukocyte Esterase Salicylates Acetaminophen Ethyl Alcohol Assessment and Plan (1) Osteomyelitis: Status: Acute (2) Alcohol intoxication: Status: Acute (3) Alcohol withdrawal: Status: Acute Plan A 59-year-old male with a history of heavy alcohol use disorder, alcohol withdrawal seizures, pancreatitis, hypertension, and recent kidney stone with hydronephrosis (s/p ureteroscopy, laser lithotripsy, and string stent placement in early December) presents with multiple complaints. He reports left hand pain since IV placement during his last hospitalization, with minimal swelling noted and an unremarkable hand CT. He is visibly intoxicated with a blood alcohol level of 330 mg/dL, reports unsteady gait, and has left jaw/tooth pain. 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 ID consult, will likely need IV Abx for 4 to 6 week Follow cultures Outpatient Dental follow up Unsteady Gait: Likely multifactorial (intoxication, possible cerebellar dysfunction from chronic alcohol use, or neuropathy) Head CT rules out acute intracranial causes. Monitor gait improvement as alcohol level decreases consider neurology consult if persistent (e.g., for cerebellar degeneration or B12 deficiency). PT eval Left Hand Pain, minimal pain, no erythema conservative manaement with pain meds monitor for sings of cellulitis, presently none Mildly Elevated Lactic Acid (2.8 mmol/L), level essentially flat Likely due to alcohol intoxication (type B lactic acidosis from impaired lactate clearance), not due to sepsis Mild metabolic acisois, likely from alcohol and lactic acidosis, resolved monitor bicab HTN Norvasc Seizure d/o Topomax DVT prophylaxis: Lovenox Diet: regular Full code Quality Stroke Does the patient have a stroke diagnosis?: No VTE Prior VTE?: No VTE Risk Level:: Medical - moderate - high VTE Device Contraindication: Treatment Not Indicated VTE Drug Contraindication: N/A - Med Ordered
[2025-01-29] MEDS: 0.9 % Sodium Chloride Flush 3 ML SYRINGE IVFLUSH (10:14)
[2025-01-29] MEDS: Acetaminophen 325 MG TABLET 650 MG PO (10:16)
[2025-01-29] MEDS: ondansetron HCL 4 MG/2 ML VIAL IVPUSH (10:17)
[2025-01-29] MEDS: Thiamine HCL 100 MG in 0.9 % Sodium Chloride 100 ML 202 MG IV (10:27)
--- NOTE | 2025-01-29 12:09 | HO.ADDICT_ITS ---
History of Present Illness Date of Service: 01/29/2025 Chief Complaint: alcohol withdrawal Reason for Consult: AUD Sources of Information: patient interviewed and chart reviewed HPI Narrative: Patient is a 59 year old [place] speaking male medically admitted with alcohol withdrawal and osteomyelitis of the mandible secondary to untreated dental carries. Patient seen in room 384, interview completed using [place] translator and interpreter via tablet. Long history of alchol use disorder, and several presentations to [facility] ED related to alcohol intoxication, most recently 03/2024 when he presented for intoxication and concern for SI. This is his first medical admission. He reports drinking both wine and beer, and most recently drinking a bottle of wine daily. Reports history of withdrawals Denies any treatment history --home med list shows Campral. Currently reporting headache, tremor, nausea and feeling terrible He appears uncomfortable, with observable tremor, and mild diaphoresis ED note mentions concern for VH and confusion, this was not observed today Labs reviewed ETOH level 330 at admission LFTs WNL Ammonia WNL Review of Systems Constitutional: Reports as per HPI Diagnostics Vital Signs (24Hr): Vital Signs - 24 hr 01/28/25 12:10 01/28/25 13:16 01/28/25 15:34 Temperature 97.4 F 97.8 F 97.9 F Pulse Rate 76 77 97 Respiratory Rate 16 18 14 Blood Pressure 137/76 146/90 H 132/72 Pulse Oximetry 94 97 95 Oxygen Delivery Method Room Air Room Air Room Air 01/28/25 18:56 01/28/25 20:32 01/28/25 22:19 Temperature 97.9 F 98.3 F 98.2 F Pulse Rate 88 86 86 Respiratory Rate 20 13 18 Blood Pressure 149/82 H 146/77 H 161/85 H Pulse Oximetry 96 100 96 Oxygen Delivery Method Room Air Room Air Room Air 01/28/25 22:34 01/28/25 23:36 01/29/25 03:05 Temperature 98 F 97.9 F Pulse Rate 83 73 Respiratory Rate 18 18 Blood Pressure 161/85 H 142/65 H 133/78 Pulse Oximetry 96 96 Oxygen Delivery Method Room Air Room Air 01/29/25 07:21 Temperature 97.1 F Pulse Rate 81 Respiratory Rate 16 Blood Pressure 171/89 H Pulse Oximetry 95 Oxygen Delivery Method Room Air BMI result Body Mass Index 22.8 Labs 01/29/25 06:16 01/29/25 06:16 Labs: Laboratory Results - last 48 hr 01/28/25 01/28/25 01/28/25 12:12 12:20 12:30 WBC 7.2 RBC 4.53 L Hgb 14.8 Hct 43.3 MCV 95.6 MCH 32.7 MCHC 34.2 RDW 13.6 Plt Count 309 MPV 8.3 L Immature Gran % (Auto) 0.4 Neut % (Auto) 48.4 Lymph % (Auto) 44.4 H [place] % (Auto) 4.7 Eos % (Auto) 1.0 Baso % (Auto) 1.1 Lymph # (Auto) 3.2 [place] # (Auto) 0.3 Eos # (Auto) 0.1 Baso # (Auto) 0.1 Abs Immat Gran (auto) 0.03 Absolute Neuts (auto) 3.5 Absolute Nucleated RBC 0.000 Nucleated RBC % (auto) 0.0 Hold Purple Top VBG pH VBG pCO2 VBG pO2 VBG HCO3 VBG O2 Saturation VBG Base Excess Sodium 142 Potassium 3.7 Chloride 110 H Carbon Dioxide 20 L Anion Gap 16 BUN 11 Creatinine 0.63 Estim Creat Clear Calc 108.1 Estimated GFR > 60 Random Glucose 95 Lactic Acid Lactic Acid F/U @ 2Hr Lactic Acid F/U @ 4Hr Calcium 8.3 L Magnesium 2.0 Total Bilirubin 0.3 Direct Bilirubin AST 36 ALT 28 Alkaline Phosphatase 102 Ammonia 31 Troponin I High Sens < 2.7 Total Protein 7.0 Albumin 3.9 Vitamin B12 Folate Urine Color Yellow Urine Appearance Clear Urine pH 5.5 Ur Specific [place] <= 1.005 Urine Protein Negative Urine Glucose (UA) Negative Urine Ketones Trace Urine Blood Negative Urine Nitrite Negative Ur Leukocyte Esterase Negative Salicylates < 5.0 L Acetaminophen < 3 Ethyl Alcohol 330 H* 01/28/25 01/28/25 01/28/25 12:34 14:15 16:33 WBC RBC Hgb Hct MCV MCH MCHC RDW Plt Count MPV Immature Gran % (Auto) Neut % (Auto) Lymph % (Auto) [place] % (Auto) Eos % (Auto) Baso % (Auto) Lymph # (Auto) [place] # (Auto) Eos # (Auto) Baso # (Auto) Abs Immat Gran (auto) Absolute Neuts (auto) Absolute Nucleated RBC Nucleated RBC % (auto) Hold Purple Top VBG pH 7.39 VBG pCO2 33 VBG pO2 60 VBG HCO3 20 L VBG O2 Saturation 85.0 VBG Base Excess -3.5 Sodium Potassium Chloride Carbon Dioxide Anion Gap BUN Creatinine Estim Creat Clear Calc Estimated GFR Random Glucose Lactic Acid 2.8 H* Lactic Acid F/U @ 2Hr 2.7 H* Lactic Acid F/U @ 4Hr Calcium Magnesium Total Bilirubin Direct Bilirubin AST ALT Alkaline Phosphatase Ammonia Troponin I High Sens Total Protein Albumin Vitamin B12 Folate Urine Color Urine Appearance Urine pH Ur Specific [place] Urine Protein Urine Glucose (UA) Urine Ketones Urine Blood Urine Nitrite Ur Leukocyte Esterase Salicylates Acetaminophen Ethyl Alcohol 01/28/25 01/29/25 19:00 06:16 WBC 5.7 RBC 4.27 L Hgb 14.0 Hct 40.6 L MCV 95.1 MCH 32.8 MCHC 34.5 RDW 13.5 Plt Count 273 MPV 8.9 L Immature Gran % (Auto) 0.3 Neut % (Auto) 49.0 Lymph % (Auto) 34.0 [place] % (Auto) 10.8 Eos % (Auto) 4.5 H Baso % (Auto) 1.4 Lymph # (Auto) 2.0 [place] # (Auto) 0.6 Eos # (Auto) 0.3 Baso # (Auto) 0.1 Abs Immat Gran (auto) 0.02 Absolute Neuts (auto) 2.8 Absolute Nucleated RBC 0.000 Nucleated RBC % (auto) 0.0 Hold Purple Top SEE NOTE VBG pH VBG pCO2 VBG pO2 VBG HCO3 VBG O2 Saturation VBG Base Excess Sodium 139 Potassium 3.9 Chloride 108 Carbon Dioxide 23 Anion Gap 12 BUN Creatinine 0.67 Estim Creat Clear Calc 111.3 Estimated GFR > 60 Random Glucose Lactic Acid Lactic Acid F/U @ 2Hr Lactic Acid F/U @ 4Hr 3.0 H* Calcium Magnesium 1.6 Total Bilirubin 1.0 Direct Bilirubin 0.4 AST 35 ALT 21 Alkaline Phosphatase 88 Ammonia Troponin I High Sens Total Protein 5.9 L Albumin 3.2 L Vitamin B12 534 Folate 9.2 Urine Color Urine Appearance Urine pH Ur Specific [place] Urine Protein Urine Glucose (UA) Urine Ketones Urine Blood Urine Nitrite Ur Leukocyte Esterase Salicylates Acetaminophen Ethyl Alcohol Imaging Radiology Impressions: ITS Impressions Hand X-Ray 01/28/25 10:22 IMPRESSION: Unremarkable left hand Electronically signed by: Carlos Sherwood MD 01/28/2025 11:30 AM EDT RP Head CT 01/28/25 11:31 IMPRESSION: No acute intracranial abnormality. Destructive changes in the maxilla on the left is probably related to carious molars resulting in osteomyelitis. Electronically signed by: Carlos Sherwood MD 01/28/2025 01:03 PM EDT RP Wrist CT 01/28/25 11:34 IMPRESSION: No fracture is evident. If snuffbox tenderness persists, follow-up with navicular x-rays in 10-14 days. Electronically signed by: Carlos Sherwood MD 01/28/2025 01:15 PM EDT RP Mental Status Exam Mental Status Exam Patient Appearance: Perspiring Patient Orientation: Person, Place, Time and Situation Level of Consciousness: Awake and Alert Patient Behavior: Appropriate Affect Description: Appropriate and Flat Speech Pattern: Clear Hallucinations: None Thought Process: Intact Judgement: Fair Medications Medications Current Medications Acetaminophen (Acetaminophen 325 Mg Tablet) 650 mg PO Q6H PRN PRN Reason: Pain, Mild 1-3,fever,headache Last Admin: 01/29/25 10:16 Dose: 650 mg Amlodipine Besylate (Amlodipine Besylate 5 Mg Tablet) 5 mg PO BEDTIME [facility]; Protocol Last Admin: 01/28/25 22:34 Dose: 5 mg Calcium Carbonate (Calcium Carbonate 750 Mg Tab.Chew) 750 mg PO Q4H PRN PRN Reason: Heartburn Enoxaparin Sodium (Enoxaparin Sodium 40 Mg/0.4 Ml Syringe) 40 mg SUBCUT Q24H [facility] Last Admin: 01/28/25 16:25 Dose: 40 mg Famotidine (Famotidine 20 Mg Tablet) 20 mg PO DAILY [facility] Last Admin: 01/29/25 08:29 Dose: 20 mg Lactated Ringer's (Lr) 1,000 mls @ 125 mls/hr IVCONT .Q8H [facility] Last Admin: 01/29/25 11:16 Dose: Not Given Folic Acid 1 mg/ Sodium (Chloride) 50.2 mls @ 100.4 mls/hr IV DAILY [facility] Stop: 01/30/25 09:29 Last Infusion: 01/28/25 20:24 Dose: Infused Thiamine HCl 100 mg/ Sodium (Chloride) 101 mls @ 202 mls/hr IV DAILY [facility] Stop: 01/30/25 09:29 Last Infusion: 01/29/25 10:57 Dose: Infused Piperacillin Sod/Tazobactam (Sod 3.375 gm/ Sodium Chloride) 50 mls @ 100 mls/hr IV Q6H [facility] Last Infusion: 01/29/25 10:20 Dose: Infused Vancomycin HCl 750 mg/ Sodium (Chloride) 265 mls @ 265 mls/hr IV Q8H [facility] Last Infusion: 01/29/25 09:27 Dose: Infused Magnesium Hydroxide (Milk Of Magnesia 30 Ml Oral.Susp) 30 ml PO DAILY PRN PRN Reason: Constipation Melatonin (Melatonin 3 Mg Tablet) 6 mg PO BEDTIME PRN PRN Reason: Insomnia Ondansetron HCl (Ondansetron Hcl 4 Mg/2 Ml Vial) 4 mg IVPUSH Q8H PRN PRN Reason: Nausea and Vomiting Last Admin: 01/29/25 10:17 Dose: 4 mg Pharmacy Consult (Consult Rx Etoh Phenob Po Only) 1 each MISCELLANE ONCE PRN; Protocol PRN Reason: Consult order Pharmacy Consult (Consult Rx Vancomycin Dosing) 1 each MISCELLANE DAILY PRN PRN Reason: Consult order Phenobarbital (Phenobarbital 15 Mg Tablet) 45 mg PO BID [facility]; Protocol Stop: 01/30/25 21:01 Last Admin: 01/29/25 08:28 Dose: 45 mg Phenobarbital (Phenobarbital 30 Mg Tablet) 30 mg PO BID [facility]; Protocol Stop: 02/01/25 21:01 Phenobarbital (Phenobarbital 30 Mg Tablet) 30 mg PO DAILY [facility]; Protocol Stop: 02/03/25 09:01 Phenobarbital Sodium (Phenobarbital Sodium 130 Mg/Ml Vial) 130 mg IM ONCE ONE Stop: 01/29/25 12:09 Polyethylene Glycol (Polyethylene Glycol 3350 17 Gm Powd.Pack) 17 gm PO DAILY PRN PRN Reason: Constipation Sodium Chloride (0.9 % Sodium Chloride Flush 3 Ml Syringe) 3 ml IVFLUSH QSHIFT [facility] Last Admin: 01/29/25 10:14 Dose: 3 ml Tamsulosin HCl (Tamsulosin Hcl 0.4 Mg Capsule) 0.4 mg PO DAILY [facility] Last Admin: 01/29/25 08:29 Dose: 0.4 mg Topiramate (Topiramate 25 Mg Tablet) 50 mg PO DAILY [facility] Last Admin: 01/29/25 08:29 Dose: 50 mg Allergies Allergies Allergy/AdvReac Type Severity Reaction Status Date / Time No Known Allergies (No Known Allergy Verified 01/28/25 10:44 Allergies*) Assessment & Plan Assessment & Plan (1) Alcohol withdrawal: Status: Acute Code(s): F10.939 - Alcohol use, unspecified with withdrawal, unspecified Assessment and Plan: * Discussed with attending, Dr. Mena, additional pheno dose to be ordered to address ongoing withdrawal sx * avoid benzo dosing--utilize PRN pheno if appropriate or adjunct meds to address sx * IV thiamine in place * will follow up over the weekend Total time managing care of this patient today __40__ minutes. PMFSH Past Medical History Medical History Alcoholism Social History Social History Household Members: None Housing: Homeless Housing Other:: lives with friends Do you presently have visiting nurse or other home services: No Alcohol intake: current Alcohol intake frequency: 3 or more drinks per day Alcohol type: beer Patient Tobacco Use Status: Current everyday Tobacco user Tobacco use type: Cigarette Cigarette Packs Per Day: 1 Cigarettes Per Day: 20.0 Years Smoked: 12 Smoked in Last 30 Days: Yes e-Cigarette/Vaping Use: Never Used Patient Interested in Nicotine Replacement: Yes Patient Given Instructions on How to Stop Smoking: Yes Date Education Initiated: 01/28/25 Use of substances other than those prescribed or required for medical reasons: No Currently Displaying Signs/Symptoms of Drug Intoxication Withdrawal: No Have you been hit, kicked, punched, or otherwise hurt by someone within the past year? If so, by whom?: No Do you feel safe in your current relationship?: No Is there a partner from a previous relationship who is making you feel unsafe now?: No Are you made to feel afraid or neglected: No Advance Directives: No Advance Directives Information Provided: Yes Do you have a plan to hurt others: No Plan Recently lost weight without trying: Yes How much weight loss: 2-13 pounds Nutrition Risks: No Nutritional Risk Poor oral hygiene: No
--- NOTE | 2025-01-29 12:09 | PC.NURSE ---
Spoke with pharmacy this AM via phone call to bring folic acid to bedside. 12:10 Folic acid still not in fridge, spoke with pharmacy informatics specialist on floor, asked if they can send folic acid to bedside.
[2025-01-29] MEDS: PHENobarbitaL sodium 130 MG/ML VIAL IM (12:31)
[2025-01-29] MEDS: Folic Acid 1 MG in 0.9 % Sodium Chloride 50 ML 100.4 MG IV (12:42)
[2025-01-29 14:36] LABS: Vancomycin Random 14.7 mcg/mL (15-20)
--- NOTE | 2025-01-29 14:50 | W.PM.IDCN ---
History of Present Illness Data of Consult Service Date: 01/29/25 Requesting physician: Ant Mena Primary Care Provider: AGUSTO Eason Reason for consult: left tooth OM concern He presents with weakness and some withdrawal alcohol symptoms. He has no fever or chills. He has head CT and found has some left carious molars OM. Review of Systems Review of Systems: Yes all other systems are reviewed and are negative PMFSH Past Medical History Medical History Alcoholism Family History Family history: reviewed and not pertinent Social History Social History Household Members: None Housing: Homeless Housing Other:: lives with friends Do you presently have visiting nurse or other home services: No Alcohol intake: current Alcohol intake frequency: 3 or more drinks per day Alcohol type: beer Patient Tobacco Use Status: Current everyday Tobacco user Tobacco use type: Cigarette Cigarette Packs Per Day: 1 Cigarettes Per Day: 20.0 Years Smoked: 12 Smoked in Last 30 Days: Yes e-Cigarette/Vaping Use: Never Used Patient Interested in Nicotine Replacement: Yes Patient Given Instructions on How to Stop Smoking: Yes Date Education Initiated: 01/28/25 Use of substances other than those prescribed or required for medical reasons: No Currently Displaying Signs/Symptoms of Drug Intoxication Withdrawal: No Have you been hit, kicked, punched, or otherwise hurt by someone within the past year? If so, by whom?: No Do you feel safe in your current relationship?: No Is there a partner from a previous relationship who is making you feel unsafe now?: No Are you made to feel afraid or neglected: No Advance Directives: No Advance Directives Information Provided: Yes Do you have a plan to hurt others: No Plan Recently lost weight without trying: Yes How much weight loss: 2-13 pounds Nutrition Risks: No Nutritional Risk Poor oral hygiene: No Meds Allergies Allergy/AdvReac Type Severity Reaction Status Date / Time No Known Allergies (No Known Allergy Verified 01/28/25 10:44 Allergies*) Active Medications: Current Medications Acetaminophen (Acetaminophen 325 Mg Tablet) 650 mg PO Q6H PRN PRN Reason: Pain, Mild 1-3,fever,headache Last Admin: 06/20/25 10:16 Dose: 650 mg Amlodipine Besylate (Amlodipine Besylate 5 Mg Tablet) 5 mg PO BEDTIME [facility]; Protocol Last Admin: 01/28/25 22:34 Dose: 5 mg Calcium Carbonate (Calcium Carbonate 750 Mg Tab.Chew) 750 mg PO Q4H PRN PRN Reason: Heartburn Enoxaparin Sodium (Enoxaparin Sodium 40 Mg/0.4 Ml Syringe) 40 mg SUBCUT Q24H [facility] Last Admin: 01/28/25 16:25 Dose: 40 mg Famotidine (Famotidine 20 Mg Tablet) 20 mg PO DAILY [facility] Last Admin: 01/29/25 08:29 Dose: 20 mg Lactated Ringer's (Lr) 1,000 mls @ 125 mls/hr IVCONT .Q8H [facility] Last Admin: 01/29/25 11:16 Dose: Not Given Folic Acid 1 mg/ Sodium (Chloride) 50.2 mls @ 100.4 mls/hr IV DAILY [facility] Stop: 01/30/25 09:29 Last Infusion: 01/29/25 13:12 Dose: Infused Thiamine HCl 100 mg/ Sodium (Chloride) 101 mls @ 202 mls/hr IV DAILY [facility] Stop: 01/30/25 09:29 Last Infusion: 01/29/25 10:57 Dose: Infused Piperacillin Sod/Tazobactam (Sod 3.375 gm/ Sodium Chloride) 50 mls @ 100 mls/hr IV Q6H [facility] Last Infusion: 01/29/25 10:20 Dose: Infused Vancomycin HCl 750 mg/ Sodium (Chloride) 265 mls @ 265 mls/hr IV Q8H [facility] Last Infusion: 01/29/25 09:27 Dose: Infused Magnesium Hydroxide (Milk Of Magnesia 30 Ml Oral.Susp) 30 ml PO DAILY PRN PRN Reason: Constipation Melatonin (Melatonin 3 Mg Tablet) 6 mg PO BEDTIME PRN PRN Reason: Insomnia Ondansetron HCl (Ondansetron Hcl 4 Mg/2 Ml Vial) 4 mg IVPUSH Q8H PRN PRN Reason: Nausea and Vomiting Last Admin: 01/29/25 10:17 Dose: 4 mg Pharmacy Consult (Consult Rx Etoh Phenob Po Only) 1 each MISCELLANE ONCE PRN; Protocol PRN Reason: Consult order Pharmacy Consult (Consult Rx Vancomycin Dosing) 1 each MISCELLANE DAILY PRN PRN Reason: Consult order Phenobarbital (Phenobarbital 15 Mg Tablet) 45 mg PO BID [facility]; Protocol Stop: 01/30/25 21:01 Last Admin: 01/29/25 08:28 Dose: 45 mg Phenobarbital (Phenobarbital 30 Mg Tablet) 30 mg PO BID [facility]; Protocol Stop: 02/01/25 21:01 Phenobarbital (Phenobarbital 30 Mg Tablet) 30 mg PO DAILY [facility]; Protocol Stop: 02/03/25 09:01 Polyethylene Glycol (Polyethylene Glycol 3350 17 Gm Powd.Pack) 17 gm PO DAILY PRN PRN Reason: Constipation Sodium Chloride (0.9 % Sodium Chloride Flush 3 Ml Syringe) 3 ml IVFLUSH QSHIFT [facility] Last Admin: 01/29/25 10:14 Dose: 3 ml Tamsulosin HCl (Tamsulosin Hcl 0.4 Mg Capsule) 0.4 mg PO DAILY [facility] Last Admin: 01/29/25 08:29 Dose: 0.4 mg Topiramate (Topiramate 25 Mg Tablet) 50 mg PO DAILY [facility] Last Admin: 01/29/25 08:29 Dose: 50 mg Home Medications ?Medication ?Instructions ?Recorded ?Confirmed ?Last Taken ?Type acamprosate 333 mg tablet,delayed 333 mg PO TID 04/08/24 01/28/25 01/27/25 History release folic acid 1 mg tablet 1 mg PO DAILY 04/08/24 01/28/25 01/27/25 History thiamine HCl (vitamin B1) 100 mg 100 mg PO DAILY 04/08/24 01/28/25 01/27/25 History tablet amlodipine 5 mg tablet 5 mg PO BEDTIME 01/28/25 01/28/25 01/27/25 History famotidine 20 mg tablet 20 mg PO DAILY 01/28/25 01/28/25 01/27/25 History tamsulosin 0.4 mg capsule 0.4 mg PO DAILY 01/28/25 01/28/25 01/27/25 History topiramate 50 mg tablet 50 mg PO DAILY 01/28/25 01/28/25 01/27/25 History Physical Exam Vital Signs: Vital Signs: Last Vital Signs Temp 98.3 F 01/29/25 12:00 Pulse 76 01/29/25 12:00 Resp 18 01/29/25 12:00 BP 155/86 H 01/29/25 12:00 Pulse Ox 96 01/29/25 12:00 O2 Del Method Room Air 01/29/25 12:00 BMI result Body Mass Index 22.8 Const: General: cooperative HEENT: Head: Yes normal to inspection Face and sinus: Yes normal facial exam Mouth: Normal oral and palatal mucosa present Teeth and gingiva: dentition normal Eyes: General: appearance normal, both eyes and all related structures Pupils: Equal, round and reactive pupils present Resp: Effort & Inspection: normal respiratory effort Cardio: Rate: regular rate Rhythm: regular rhythm GI: Palpation (GI): Soft to palpation and nontender : General: Yes no CVA tenderness Back/Spine/Pelvis: Back: no CVA tenderness Skin: General skin exam: no rashes or lesions noted Neuro: General: moves all extremities Cranial nerves: Yes Equal, round and reactive pupils present Extrem: General: Yes normal to inspection Psych: Appearance: grossly normal Results Labs 01/29/25 06:16 01/29/25 06:16 Labs: Short CBC 01/29/25 Range/Units 06:16 WBC 5.7 (4.8-10.8) X10*3/uL Hgb 14.0 (14.0-18.0) g/dl Hct 40.6 L (42.0-52.0) % Plt Count 273 (160-400) X10*3/uL BMP 01/29/25 06:16 Sodium 139 Potassium 3.9 Chloride 108 Carbon Dioxide 23 Creatinine 0.67 Liver Function 01/29/25 Range/Units 06:16 Total Bilirubin 1.0 (0.0-1.0) mg/dL Direct Bilirubin 0.4 (0.0-0.5) mg/dL AST 35 (5-37) U/L ALT 21 (0-40) U/L Alkaline Phosphatase 88 (39-117) U/L Albumin 3.2 L (3.5-5.0) g/dL Assessment and Plan (1) Alcohol intoxication: Status: Acute (2) Alcohol withdrawal: Status: Acute (3) Osteomyelitis: Qualifiers: Osteomyelitis location: unspecified site Osteomyelitis type: unspecified type Qualified Code(s): M86.9 - Osteomyelitis, unspecified Status: Acute Plan He has longstanding dental infection,not acute,OM base of teeth. Referral to dentist outpatient. Po Augmentin for 10 days
--- NOTE | 2025-01-29 14:55 | HE.PHANOTE ---
RE: VANCO DOSING Trough came back as 14.7 mg/L and renal function is stable. Continue with dose 750 mg q8h, next trough is scheduled for 01/30/25 @1400.
[2025-01-29] MEDS: Enoxaparin Sodium 40 MG/0.4 ML SYRINGE SUBCUT (15:32)
[2025-01-29] MEDS: amLODIPine Besylate 5 MG TABLET PO (21:30)
[2025-01-30] MEDS: Lactated Ringers 1,000 ML 125 ML IVCONT ×2 (01:35→13:14)
[2025-01-30] MEDS: 0.9 % Sodium Chloride Flush 3 ML SYRINGE IVFLUSH (01:36)
[2025-01-30] MEDS: Piperacillin Sodium/Tazobactam 3.375 GM in 0.9 % Sodium Chloride 50 ML IV ×4 (03:14→20:54)
[2025-01-30 03:32] VITALS: BP 145/79; PULSE 61; RESP 18; TEMP 36.6; O2SAT 97
[2025-01-30 07:45] VITALS: BP 156/76; PULSE 76; RESP 18; TEMP 36.8; O2SAT 98
[2025-01-30] MEDS: Famotidine 20 MG TABLET PO (09:17)
[2025-01-30] MEDS: Topiramate 25 MG TABLET 50 MG PO (09:17)
[2025-01-30] MEDS: PHENobarbitaL 15 MG TABLET 45 MG PO ×2 (09:17→20:53)
[2025-01-30] MEDS: Tamsulosin HCL 0.4 MG CAPSULE PO (09:17)
[2025-01-30] MEDS: Folic Acid 1 MG in 0.9 % Sodium Chloride 50 ML 100.4 MG IV (10:08)
--- NOTE | 2025-01-30 10:19 | HO.PM.IMPN ---
Subjective Subjective Date of Service: 01/30/25 Interval History: c/o feeling dizzy, less shaky Physical Exam Vital Signs: Vital Signs: Last Vital Signs Temp 98.3 F 01/30/25 07:45 Pulse 76 01/30/25 07:45 Resp 18 01/30/25 07:45 BP 156/76 H 01/30/25 07:45 Pulse Ox 98 01/30/25 07:45 O2 Del Method Room Air 01/30/25 07:45 BMI result Body Mass Index 22.8 General: AO X 3, no acute distress HEEBNT: poor dentition on left side with visibly decayed tooth Resp: CTA bilateral CVS: S1,S2,RRR GI: +BS, NT, no distention Skin: No rash Ext: no swelling of the left hand or erythema Neuro: motor grossly intact Psych: appropriate affect Objective Data Active Medications Acetaminophen (Acetaminophen 325 Mg Tablet) 650 mg PO Q6H PRN PRN Reason: Pain, Mild 1-3,fever,headache Last Admin: 01/29/25 10:16 Dose: 650 mg Documented By: KEN Amlodipine Besylate (Amlodipine Besylate 5 Mg Tablet) 5 mg PO BEDTIME [facility]; Protocol Last Admin: 01/29/25 21:30 Dose: 5 mg Documented By: DEANDRA Calcium Carbonate (Calcium Carbonate 750 Mg Tab.Chew) 750 mg PO Q4H PRN PRN Reason: Heartburn Enoxaparin Sodium (Enoxaparin Sodium 40 Mg/0.4 Ml Syringe) 40 mg SUBCUT Q24H [facility] Last Admin: 01/29/25 15:32 Dose: 40 mg Documented By: KEN Famotidine (Famotidine 20 Mg Tablet) 20 mg PO DAILY [facility] Last Admin: 01/30/25 09:17 Dose: 20 mg Documented By: REINA Lactated Ringer's (Lr) 1,000 mls @ 125 mls/hr IVCONT .Q8H [facility] Last Infusion: 01/30/25 09:49 Dose: 0 mls/hr Documented By: REINA Piperacillin Sod/Tazobactam (Sod 3.375 gm/ Sodium Chloride) 50 mls @ 100 mls/hr IV Q6H [facility] Last Infusion: 01/30/25 10:10 Dose: Infused Documented By: REINA Magnesium Hydroxide (Milk Of Magnesia 30 Ml Oral.Susp) 30 ml PO DAILY PRN PRN Reason: Constipation Melatonin (Melatonin 3 Mg Tablet) 6 mg PO BEDTIME PRN PRN Reason: Insomnia Ondansetron HCl (Ondansetron Hcl 4 Mg/2 Ml Vial) 4 mg IVPUSH Q8H PRN PRN Reason: Nausea and Vomiting Last Admin: 01/29/25 10:17 Dose: 4 mg Documented By: KEN Pharmacy Consult (Consult Rx Etoh Phenob Po Only) 1 each MISCELLANE ONCE PRN; Protocol PRN Reason: Consult order Pharmacy Consult (Consult Rx Vancomycin Dosing) 1 each MISCELLANE DAILY PRN PRN Reason: Consult order Phenobarbital (Phenobarbital 15 Mg Tablet) 45 mg PO BID [facility]; Protocol Stop: 01/30/25 21:01 Last Admin: 01/30/25 09:17 Dose: 45 mg Documented By: REINA Phenobarbital (Phenobarbital 30 Mg Tablet) 30 mg PO BID [facility]; Protocol Stop: 02/01/25 21:01 Phenobarbital (Phenobarbital 30 Mg Tablet) 30 mg PO DAILY [facility]; Protocol Stop: 02/03/25 09:01 Polyethylene Glycol (Polyethylene Glycol 3350 17 Gm Powd.Pack) 17 gm PO DAILY PRN PRN Reason: Constipation Sodium Chloride (0.9 % Sodium Chloride Flush 3 Ml Syringe) 3 ml IVFLUSH QSHIFT [facility] Last Admin: 01/30/25 09:22 Dose: Not Given Documented By: REINA Non-Admin Reason: Previously Administered Tamsulosin HCl (Tamsulosin Hcl 0.4 Mg Capsule) 0.4 mg PO DAILY [facility] Last Admin: 01/30/25 09:17 Dose: 0.4 mg Documented By: REINA Topiramate (Topiramate 25 Mg Tablet) 50 mg PO DAILY [facility] Last Admin: 01/30/25 09:17 Dose: 50 mg Documented By: REINA Labs 01/29/25 06:16 01/29/25 06:16 Labs: Laboratory Results - last 24 hr 01/29/25 13:57 Random Vancomycin 14.7 L Microbiology Microbiology Results: Microbiology 01/28/25 14:33 Blood Culture - Preliminary Blood - Venous No growth after 24 hours. 01/28/25 14:15 Blood Culture - Preliminary Blood - Venous No growth after 24 hours. Assessment and Plan (1) Osteomyelitis: Status: Acute (2) Alcohol intoxication: Status: Acute (3) Alcohol withdrawal: Status: Acute Plan A 59-year-old male with a history of heavy alcohol use disorder, alcohol withdrawal seizures, pancreatitis, hypertension, and recent kidney stone with hydronephrosis (s/p ureteroscopy, laser lithotripsy, and string stent placement in early December) presents with multiple complaints. He reports left hand pain since IV placement during his last hospitalization, with minimal swelling noted and an unremarkable hand CT. He is visibly intoxicated with a blood alcohol level of 330 mg/dL, reports unsteady gait, and has left jaw/tooth pain. 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 Monitor gait improvement as alcohol level decreases consider neurology consult if persistent (e.g., for cerebellar degeneration or B12 deficiency). PT eval prior to dac Left Hand Pain, minimal pain, no erythema conservative manaement with pain meds monitor for sings of cellulitis, presently none Mildly Elevated Lactic Acid (2.8 mmol/L), level essentially flat Likely due to alcohol intoxication (type B lactic acidosis from impaired lactate clearance), not due to sepsis Mild metabolic acisois, likely from alcohol and lactic acidosis, resolved monitor bicab HTN Norvasc Seizure d/o Topomax DVT prophylaxis: Lovenox Diet: regular Full code Quality Stroke Does the patient have a stroke diagnosis?: No VTE Prior VTE?: No VTE Risk Level:: Medical - moderate - high VTE Device Contraindication: Treatment Not Indicated VTE Drug Contraindication: N/A - Med Ordered
[2025-01-30] MEDS: Thiamine HCL 100 MG in 0.9 % Sodium Chloride 100 ML 202 MG IV (10:54)
[2025-01-30 11:41] VITALS: BP 138/88; PULSE 84; RESP 16; TEMP 36.8; O2SAT 99
[2025-01-30 15:14] VITALS: BP 140/85; PULSE 68; RESP 16; TEMP 36.7; O2SAT 98
[2025-01-30] MEDS: Enoxaparin Sodium 40 MG/0.4 ML SYRINGE SUBCUT (15:29)
[2025-01-30] MEDS: ondansetron HCL 4 MG/2 ML VIAL IVPUSH (16:12)
[2025-01-30 19:31] VITALS: BP 144/90; PULSE 75; RESP 18; TEMP 36.4; O2SAT 98
[2025-01-30] MEDS: amLODIPine Besylate 5 MG TABLET PO (20:53)
[2025-01-30 23:34] VITALS: BP 140/86; PULSE 61; RESP 17; TEMP 36.2; O2SAT 96
[2025-01-31 03:57] VITALS: BP 138/77; PULSE 61; RESP 18; TEMP 36.2; O2SAT 97
[2025-01-31] MEDS: Piperacillin Sodium/Tazobactam 3.375 GM in 0.9 % Sodium Chloride 50 ML IV ×4 (04:56→21:10)
[2025-01-31] MEDS: 0.9 % Sodium Chloride Flush 3 ML SYRINGE IVFLUSH ×2 (04:57→21:10)
[2025-01-31 08:00] VITALS: BP 136/76; PULSE 64; RESP 16; TEMP 36.8; O2SAT 97
--- NOTE | 2025-01-31 08:37 | MHC.CM.PN ---
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
[2025-01-31] MEDS: Famotidine 20 MG TABLET PO (09:33)
[2025-01-31] MEDS: PHENobarbitaL 30 MG TABLET PO ×2 (09:33→21:09)
[2025-01-31] MEDS: Tamsulosin HCL 0.4 MG CAPSULE PO (09:33)
[2025-01-31] MEDS: Topiramate 25 MG TABLET 50 MG PO (09:33)
--- NOTE | 2025-01-31 10:26 | HO.PM.IMPN ---
Subjective Subjective Date of Service: 01/31/25 Interval History: He is feeling better today less shaky Physical Exam Vital Signs: Vital Signs: Last Vital Signs Temp 98.3 F 01/31/25 08:00 Pulse 64 01/31/25 08:00 Resp 16 01/31/25 08:00 BP 136/76 01/31/25 08:00 Pulse Ox 97 01/31/25 08:00 O2 Del Method Room Air 01/31/25 08:00 BMI result Body Mass Index 22.8 General: AO X 3, no acute distress HEEBNT: poor dentition on left side with visibly decayed tooth Resp: CTA bilateral CVS: S1,S2,RRR GI: +BS, NT, no distention Skin: No rash Ext: no swelling of the left hand or erythema Neuro: motor grossly intact Psych: appropriate affect Objective Data Active Medications Acetaminophen (Acetaminophen 325 Mg Tablet) 650 mg PO Q6H PRN PRN Reason: Pain, Mild 1-3,fever,headache Last Admin: 01/29/25 10:16 Dose: 650 mg Documented By: KEN Amlodipine Besylate (Amlodipine Besylate 5 Mg Tablet) 5 mg PO BEDTIME [facility]; Protocol Last Admin: 01/30/25 20:53 Dose: 5 mg Documented By: DEANDRA Calcium Carbonate (Calcium Carbonate 750 Mg Tab.Chew) 750 mg PO Q4H PRN PRN Reason: Heartburn Enoxaparin Sodium (Enoxaparin Sodium 40 Mg/0.4 Ml Syringe) 40 mg SUBCUT Q24H [facility] Last Admin: 01/30/25 15:29 Dose: 40 mg Documented By: REINA Famotidine (Famotidine 20 Mg Tablet) 20 mg PO DAILY [facility] Last Admin: 01/31/25 09:33 Dose: 20 mg Documented By: REINA Piperacillin Sod/Tazobactam (Sod 3.375 gm/ Sodium Chloride) 50 mls @ 100 mls/hr IV Q6H [facility] Last Infusion: 01/31/25 10:14 Dose: Infused Documented By: REINA Magnesium Hydroxide (Milk Of Magnesia 30 Ml Oral.Susp) 30 ml PO DAILY PRN PRN Reason: Constipation Melatonin (Melatonin 3 Mg Tablet) 6 mg PO BEDTIME PRN PRN Reason: Insomnia Ondansetron HCl (Ondansetron Hcl 4 Mg/2 Ml Vial) 4 mg IVPUSH Q8H PRN PRN Reason: Nausea and Vomiting Last Admin: 01/30/25 16:12 Dose: 4 mg Documented By: REINA Pharmacy Consult (Consult Rx Etoh Phenob Po Only) 1 each MISCELLANE ONCE PRN; Protocol PRN Reason: Consult order Pharmacy Consult (Consult Rx Vancomycin Dosing) 1 each MISCELLANE DAILY PRN PRN Reason: Consult order Phenobarbital (Phenobarbital 30 Mg Tablet) 30 mg PO BID [facility]; Protocol Stop: 02/01/25 21:01 Last Admin: 01/31/25 09:33 Dose: 30 mg Documented By: REINA Phenobarbital (Phenobarbital 30 Mg Tablet) 30 mg PO DAILY [facility]; Protocol Stop: 02/03/25 09:01 Polyethylene Glycol (Polyethylene Glycol 3350 17 Gm Powd.Pack) 17 gm PO DAILY PRN PRN Reason: Constipation Sodium Chloride (0.9 % Sodium Chloride Flush 3 Ml Syringe) 3 ml IVFLUSH QSHIFT [facility] Last Admin: 01/31/25 09:34 Dose: Not Given Documented By: REINA Non-Admin Reason: Previously Administered Tamsulosin HCl (Tamsulosin Hcl 0.4 Mg Capsule) 0.4 mg PO DAILY [facility] Last Admin: 01/31/25 09:33 Dose: 0.4 mg Documented By: REINA Topiramate (Topiramate 25 Mg Tablet) 50 mg PO DAILY [facility] Last Admin: 01/31/25 09:33 Dose: 50 mg Documented By: REINA Labs 01/29/25 06:16 01/29/25 06:16 Labs: Laboratory Results - last 24 hr 01/29/25 13:57 Random Vancomycin 14.7 L Microbiology Microbiology Results: Microbiology 01/28/25 14:33 Blood Culture - Preliminary Blood - Venous No growth after 48 hours. 01/28/25 14:15 Blood Culture - Preliminary Blood - Venous No growth after 48 hours. Assessment and Plan (1) Osteomyelitis: Status: Acute (2) Alcohol intoxication: Status: Acute (3) Alcohol withdrawal: Status: Acute Plan A 59-year-old male with a history of heavy alcohol use disorder, alcohol withdrawal seizures, pancreatitis, hypertension, and recent kidney stone with hydronephrosis (s/p ureteroscopy, laser lithotripsy, and string stent placement in early December) presents with multiple complaints. He reports left hand pain since IV placement during his last hospitalization, with minimal swelling noted and an unremarkable hand CT. He is visibly intoxicated with a blood alcohol level of 330 mg/dL, reports unsteady gait, and has left jaw/tooth pain. 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 Monitor gait improvement as alcohol level decreases consider neurology consult if persistent (e.g., for cerebellar degeneration or B12 deficiency). PT recommends STR Left Hand Pain, minimal pain, no erythema conservative management with pain meds monitor for sings of cellulitis, presently none Mildly Elevated Lactic Acid (2.8 mmol/L), level essentially flat Likely due to alcohol intoxication (type B lactic acidosis from impaired lactate clearance), not due to sepsis Mild metabolic acidosis, likely from alcohol and lactic acidosis, resolved monitor bicab HTN Norvasc Seizure d/o Topomax DVT prophylaxis: Lovenox Diet: regular Full code PT recommends STR Quality Stroke Does the patient have a stroke diagnosis?: No VTE Prior VTE?: No VTE Risk Level:: Medical - moderate - high VTE Device Contraindication: Treatment Not Indicated VTE Drug Contraindication: N/A - Med Ordered
[2025-01-31 11:41] VITALS: BP 139/77; PULSE 65; RESP 16; TEMP 36.8; O2SAT 96
[2025-01-31 15:30] VITALS: BP 136/78; PULSE 66; RESP 16; TEMP 36.8; O2SAT 99
[2025-01-31] MEDS: Enoxaparin Sodium 40 MG/0.4 ML SYRINGE SUBCUT (15:39)
[2025-01-31 20:00] VITALS: BP 118/58; PULSE 64; RESP 18; TEMP 36.1; O2SAT 97
[2025-01-31] MEDS: amLODIPine Besylate 5 MG TABLET PO (21:09)
[2025-01-31 23:19] VITALS: BP 138/68; PULSE 62; RESP 18; TEMP 36.3; O2SAT 93
[2025-02-01] MEDS: Piperacillin Sodium/Tazobactam 3.375 GM in 0.9 % Sodium Chloride 50 ML IV (03:41)
[2025-02-01 04:00] VITALS: BP 152/80; PULSE 67; RESP 18; TEMP 36.2; O2SAT 97
[2025-02-01 07:39] VITALS: BP 139/78; PULSE 62; RESP 16; TEMP 36.6; O2SAT 98
[2025-02-01] MEDS: Tamsulosin HCL 0.4 MG CAPSULE PO (08:42)
[2025-02-01] MEDS: Topiramate 25 MG TABLET 50 MG PO (08:42)
[2025-02-01] MEDS: Amoxicillin/Potassium Clav 875 MG TABLET PO (08:42)
[2025-02-01] MEDS: Famotidine 20 MG TABLET PO (08:43)
[2025-02-01] MEDS: PHENobarbitaL 30 MG TABLET PO (08:43)
[2025-02-01] MEDS: 0.9 % Sodium Chloride Flush 3 ML SYRINGE IVFLUSH (08:49)
--- NOTE | 2025-02-01 09:33 | P.DS_ITS ---
DS: Providers Provider Date of Service: 02/01/25 Date of admission: 01/28/25 14:04 Date of discharge: 02/01/25 Primary care physician: AGUSTO Eason Consults: 01/28/25 15:49 Consult to Infectious Diseases Routine Consulting Provider: [facility] Reason for consultation: osteomylitis of the jaw 01/28/25 17:47 Consult to Infectious Diseases Routine Consulting Provider: [facility] Reason for consultation: osteomylitis of the jaw 01/28/25 17:48 Addiction Medicine Provider Routine Consulting Provider: Addiction Covering Reason for consultation: heavy drinker 01/29/25 09:08 Inpt - Recovery Team Routine Comment: Reason for consultation: BH/ELSA eval DS: Diagnosis Discharge Diagnosis (1) Osteomyelitis: Status: Acute (2) Alcohol intoxication: Status: Acute (3) Alcohol withdrawal: Status: Acute DS: Summary Hospital Course Hospital Course: admission hpi Chief Complaint: Hand pain, alcohol intoxication A 59-year-old male with a history of heavy alcohol use disorder, alcohol withdrawal seizures, pancreatitis, hypertension, and recent kidney stone with hydronephrosis (s/p ureteroscopy, laser lithotripsy, and string stent placement in early December) presents with multiple complaints. He reports left hand pain since IV placement during his last hospitalization, with minimal swelling noted and an unremarkable hand CT. He is visibly intoxicated with a blood alcohol level of 330 mg/dL, reports unsteady gait, and has left jaw/tooth pain. 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 He is started on Zosyn (piperacillin-tazobactam) and vancomycin for presumed osteomyelitis. Labs show lactic acid 2.8 mmol/L (mildly elevated) and normal WBC. He is afebrile. Hospital course: A 59-year-old male with a history of heavy alcohol use disorder, alcohol withdrawal seizures, pancreatitis, hypertension, and recent kidney stone with hydronephrosis (s/p ureteroscopy, laser lithotripsy, and string stent placement in early December) presents with multiple complaints. He reports left hand pain since IV placement during his last hospitalization, with minimal swelling noted and an unremarkable hand CT. He is visibly intoxicated with a blood alcohol level of 330 mg/dL, reports unsteady gait, and has left jaw/tooth pain. A head CT shows no acute intracranial findings but notes destructive changes in the left max illa, likely due to carious molars causing osteomyelitis Alcohol Intoxication and Withdrawal, this was treated with Phenobarbital protocol, thiamine 100 mg IV daily and FA 1 mg daily for days to prevent Wernicke?s encephalopathy. He is presently not showing any sings of withdrawal. He was seen by addiction medicine and given resources on outpatient basis to stay sobber. 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 Monitor gait improvement as alcohol level decreases consider neurology consult if persistent (e.g., for cerebellar degeneration or B12 deficiency). PT recommends STR but he is delcining this, overall his gait is much better, and he may use assistive to ambulate as needed Left Hand Pain, minimal pain, no erythema conservative management with pain meds monitor for sings of cellulitis, presently none Mildly Elevated Lactic Acid (2.8 mmol/L), level essentially flat Likely due to alcohol intoxication (type B lactic acidosis from impaired lactate clearance), not due to sepsis Mild metabolic acidosis, likely from alcohol and lactic acidosis, resolved monitor bicab HTN Norvasc Seizure d/o Topomax dispo: home with services Time Attestation Discharge Coordination Time (in mins): 45 Quality: Safe Use of Opioids Does Pt have an Active Cancer Diagnosis on the Problem List?: No Quality: Stroke Does the patient have a stroke diagnosis?: No Physical Exam Vital Signs: Vital Signs: Last Vital Signs Temp 98 F 02/01/25 07:39 Pulse 62 02/01/25 07:39 Resp 16 02/01/25 07:39 BP 139/78 02/01/25 07:39 Pulse Ox 98 02/01/25 07:39 O2 Del Method Room Air 02/01/25 07:39 BMI result Body Mass Index 22.8 DS: Data Data Completed and Pending Labs on day of discharge: Preliminary micro results at discharge 01/28/25 14:33 Blood Culture - Preliminary Blood - Venous No growth after 48 hours. 01/28/25 14:15 Blood Culture - Preliminary Blood - Venous No growth after 48 hours. Discharge Plan Discharge Patient Disposition: Home Health Service Discharge Diagnosis: Alcohol withdrawal, osteomylitis of maxillary bone Referrals: Lyndsay Mondragon PA [Primary Care Provider, Internal Medicine] - 1 Week Discharge Medications: New amoxicillin-pot clavulanate 875-125 mg Tablet 1 tab PO Q12H Qty: 14 0RF Continued thiamine HCl (vitamin B1) 100 mg tablet 100 mg PO DAILY folic acid 1 mg tablet 1 mg PO DAILY acamprosate 333 mg tablet,delayed release (DR/EC) 333 mg PO TID amlodipine 5 mg tablet 5 mg PO BEDTIME famotidine 20 mg tablet 20 mg PO DAILY tamsulosin 0.4 mg capsule 0.4 mg PO DAILY topiramate 50 mg tablet 50 mg PO DAILY Diet: Advance to usual diet Activity on Discharge: As tolerated Stand Alone Forms: Patient Portal Discharge page Print Language: Indonesian Care Plan Goals: recovery from alcohol withdrawal and absitience from alcohol alcohol Health Concerns: alcohol withdrawal aalcohol use disorder osteomylitis of jaw bone bad teeh Plan of Treatment: Take Augmentin for dental infection and osteomylitis of the jaw bone avoid alcohol follow through resources given to use to help stay away from alcohol follow up with your doctor in a week, call for apoint use walker if you feel unsteady on your feet Assessment: see
--- NOTE | 2025-02-01 09:44 | W.MHC.F2F ---
Service Date Service Date: 02/01/25 Encounter Date of encounter: 02/01/25 Reasons for Services Signs and symptoms assessed: unsteady gait alcohol use disorder with reent withdrawal Reason for longterm: medication management and teach disease management Reason for physical therapy: therapeutic exercises and gait/transfer training Homebound: Leaving the home is medically contraindicated at this time without the asist of a device and/or another person due th the listed conditions above and below. Reason homebound: unsteady gait / fall risk Homebound supporting statement: Homebound due to unsteady gait likely from alcohol use, Certification: Based on the above findings, I certify that this patient is confined to the home and needs intermittent longterm care, physical therapy and/or speech therapy, or continues to need occupational therapy. The patient is under my care, and I have initiated the establishment of the plan of care. The patient will be followed by a physician who will periodically review the plan of care. Time Spent With Patient Time: Total time managing care of this patient today ____ minutes.
--- NOTE | 2025-02-01 11:38 | MHC.RECOVRN ---
T/W went to support pt. in room 381-1 in relation to DANIEL. Met [facility] pt. in room [facility] assistance of [place] emt basic virtually. Pt understands that he is on acamprosate and should continue this med upon D/C. He gets it prescribed from his PCP and will F/U @ [facility] on 02/08 for scheduled f/u appt. Pt's ambivilance about going to a senior living is the cerw interfears wiht his work schedule. Pt provided with a list of cooling centers [place] with address and hours (translated into [place]). He was also given the information for [facility] (in [place]) and encouraged to go there following his D/C here to see about resources for senior living options. Pt denies any further needs from [facility] at this time. T/W available PRN until pt. D/C Pt scheduled for D/C today.
--- NOTE | 2025-02-01 11:55 | MHC.CM.PN ---
Addendum entered by Sharon Park RN 02/01/25 13:23: Patient reports his Community Health Worker @ mailed him a housing application. However, application is in [place]. [facility] has [place] power grader operator on site. LM for patient's CHW Vern, to request that Vern work w/ [place] power grader operator to assist in completion of application. Also asked that a message be sent to nursing to schedule hospital follow up appointment. Will also fax dc summary w/ request for power grader operator assistance to [facility] @ [phone]. Original Note: Per MD patient medically cleared for dc. CM met with patient via [place] power grader operator to discuss dc plan. Patient continues to decline STR. He feels he has too many things to take care of. Unable to have VNA as he is unhoused. He will follow up with his PCP for an outpatient PT referral. He primarily stays in his car, but will consider a halfway tonight d/t heat. Was provided a halfway list and will decide on a plan (car vs halfway) after discharge. He is aware [facility] will accommodate. RN aware.
[2025-02-01 12:00] VITALS: BP 127/83; PULSE 79; RESP 17; TEMP 36.7; O2SAT 96
--- NOTE | 2025-02-03 11:05 | P.CDIM_ITS ---
PROVIDER RESPONSE TEXT: To clarify, the appropriate diagnosis supported by the clinical indicators: Chronic QUERY TEXT: PHYSICIAN'S DOCUMENTATION REQUEST Date of Query: 01/29/2025 09:47 AM EDT Patient Name: MACY VALDEZ Admit Date: 01/28/2025 Dear Ant Mena MD, A review of the medical record indicates additional documentation may be needed. Please review below and update the documentation accordingly. Clinical Indicators: Progress note 01/28/25 - Mild metabolic acidosis. likely from alcohol and lactic acidosis, resolved. Monitor bicarb Clarify which of the following accurately represents the acuity of the Metabolic acidosis: Possible options might include: Acute Chronic Other specified Other (explain) Clinically unable to determine (explain) Thank you, Ryann Mckeon, CCS, CDIS Use of terms such as suspected, likely, concern for, or probable (associated with a specific diagnosis that is being evaluated, monitored, or treated as if it exists) are acceptable and can be coded in the inpatient setting, when documented at the time of discharge. Please use your independent medical judgment in providing your response. THIS QUERY IS PART OF THE PERMANENT MEDICAL RECORD
== END 2025-02-01 14:29 | disposition home or self-care (01) | DRG 115 ==
LOC: HO.ED 11:20 → HO.EDOVER 16:03 → HO.S3 19:42
PROVIDERS: Admitting Provider Internal Medicine; Emergency Provider Emergency Medicine; PCP Student in an Organized Health Care Education/Training Program; Visit Provider Internal Medicine
DX: M27.2 Inflammatory conditions of jaws (principal); E87.22 Chronic metabolic acidosis; F10.229 Alcohol dependence with intoxication, unspecified; F17.210 Nicotine dependence, cigarettes, uncomplicated; Y90.8 Blood alcohol level of 240 mg/100 ml or more; I10 Essential (primary) hypertension; R26.81 Unsteadiness on feet; F10.239 Alcohol dependence with withdrawal, unspecified; G40.909 Epilepsy, unspecified, not intractable, without status epilepticus; K02.9 Dental caries, unspecified; M79.642 Pain in left hand; Z71.6 Tobacco abuse counseling; Z79.899 Other long term (current) drug therapy
CPT/HCPCS: 36415; 70450; 73130; 73200; 80051; 80053; 80076; 80143; 80179; 80202; 80307; 81003; 82140; 82565; 82607; 82746; 82803; 83605; 83735; 84484; 85025; 87040; 93005; 97161; 99285; J1650; J1808; J2405; J2543; J2560; J3370; J3371; J3411; J7120; S9485

== ENCOUNTER → 2025-01-28 10:22 | Outpatient (BNV) | payer MEDICAID, SELFPAY | PROVIDERS: Emergency Provider Emergency Medicine; PCP Student in an Organized Health Care Education/Training Program; Visit Provider Radiology Diagnostic Radiology | DX: M25.549 Pain in joints of unspecified hand (principal); R41.82 Altered mental status, unspecified; M79.642 Pain in left hand | CPT/HCPCS: 70450; 73130; 73200 ==

== ENCOUNTER → 2025-01-28 11:24 | Outpatient (BNV) | payer MEDICAID, SELFPAY | PROVIDERS: Admitting Provider Internal Medicine; Emergency Provider Emergency Medicine; PCP Student in an Organized Health Care Education/Training Program; Visit Provider Internal Medicine Cardiovascular Disease | DX: R94.31 Abnormal electrocardiogram [ECG] [EKG] (principal); R53.1 Weakness | CPT/HCPCS: 93010 ==

== ENCOUNTER → 2025-01-28 14:04 | Outpatient (BNV) | payer MEDICAID, SELFPAY | PROVIDERS: Admitting Provider Internal Medicine; Emergency Provider Emergency Medicine; PCP Student in an Organized Health Care Education/Training Program; Visit Provider Internal Medicine | DX: F10.929 Alcohol use, unspecified with intoxication, unspecified (principal); F10.939 Alcohol use, unspecified with withdrawal, unspecified; M86.9 Osteomyelitis, unspecified | CPT/HCPCS: 99222 ==

== ENCOUNTER → 2025-01-28 14:04 | Outpatient (BNV) | payer MEDICAID, SELFPAY | PROVIDERS: Admitting Provider Internal Medicine; Emergency Provider Emergency Medicine; PCP Student in an Organized Health Care Education/Training Program; Visit Provider Internal Medicine | DX: M86.9 Osteomyelitis, unspecified (principal); F10.929 Alcohol use, unspecified with intoxication, unspecified; F10.939 Alcohol use, unspecified with withdrawal, unspecified | CPT/HCPCS: 99223; 99232; 99233 ==

== ENCOUNTER → 2025-01-28 14:04 | Outpatient (BNV) | payer OTHER, SELFPAY | PROVIDERS: Admitting Provider Internal Medicine; Emergency Provider Emergency Medicine; PCP Student in an Organized Health Care Education/Training Program; Visit Provider Nurse Practitioner Psychiatric/Mental Health | DX: F10.939 Alcohol use, unspecified with withdrawal, unspecified (principal) | CPT/HCPCS: 99232 ==